=== PATIENT | female | born 1945 | race Two or more races ===

== ENCOUNTER 2024-08-10 12:33 | Inpatient (IN) | payer MEDICARE, MEDICAID ==
[~2024-08-10] VITALS: Ht 170.2 cm; Wt 154.6 kg
--- NOTE | 2024-08-10 13:11 | ED.PDOC ---
History of Present Illness HPI Comments 79 year old female FEDERICO presents to the ED with chief complaint of elevated blood pressure. Patient reports she is coming from [facility] care facility for an elevated blood pressure of 169/105 and an elevated heart rate of 130. Patient relays that she is bed ridden and does not walk in the facility. Patient denies any dizziness, chest pain, weakness, SOB, N/V, or headache. Chief Complaint: General Weakness Time Seen by MD: 13:09 Reviewed Notes: Nurses Notes, Manager Core Notes, Medications, Allergies Allergies: Coded Allergies: Codeine (Verified Allergy, Unknown, 08/10/24) Information Source: Patient, Emergency Med Personnel Mode of Arrival: EMS Severity: Moderate Timing: Hours Duration: Since onset Past Medical History PAST MEDICAL HISTORY: CHF, HTN Surgical History: Unknown INFANT NANNY History: Denies all INFANT NANNY Hx, Unknown Family History Family History: Unknown Social History Smoker: Non-Smoker Alcohol: Denies ETOH Use Drugs: Denies Drug Use Lives In: Correction Constitutional: denies: chills, diaphoresis, fatigue, fever, malaise, sweats, weakness, others EENTM: denies: blurred vision, double vision, ear bleeding, ear discharge, ear drainage, ear pain, ear ringing, eye pain, eye redness, hearing loss, mouth pain, mouth swelling, nasal discharge, nose bleeding, nose congestion, nose pain, photophobia, tearing, throat pain, throat swelling, voice changes, others Respiratory: denies: cough, hemoptysis, orthopnea, SOB at rest, shortness of breath, SOB with excertion, stridor, wheezing, others Cardiovascular: denies: chest pain, dizzy spells, diaphoresis, Dyspnea on exertion, edema, irregular heart beat, left arm pain, lightheadedness, palpitations, PND, syncope, others Gastrointestinal: denies: abdomen distended, abdominal pain, blood streaked bowels, constipated, diarrhea, dysphagia, difficulty swallowing, hematemesis, melena, nausea, poor appetite, poor fluid intake, rectal bleeding, rectal pain, vomiting, others Genitourinary: denies: abnormal vagina bleeding, burning, dyspareunia, dysuria, flank pain, frequency, hematuria, incontinence, pain, , vagina discharge, urgency, others Neurological: denies: dizziness, fainting, headache, left sided numbness, left sided weakness, numbness, paresthesia, pre-existing deficit, right sided numbness, right sided weakness, seizure, speech problems, tingling, tremors, weakness, others Musculoskeletal: denies: back pain, gout, joint pain, joint swelling, muscle pain, muscle stiffness, neck pain, others Integumetry: denies: bruises, change in color, change in hair/nails, dryness, laceration, lesions, lumps, rash, wounds, others Allergic/Immunocompromised: denies: Difficulty Healing, Frequent Infections, Hives, Itching, others Hematologic/Lymphatic: denies: anemia, blood clots, easy bleeding, easy bruising, swollen glands, others Endocrine: denies: excessive hunger, excessive sweating, excessive thirst, excessive urination, flushing, intolerance to cold, intolerance to heat, unexplained weight gain, unexplained weight loss, others Psychiatric: denies: anxiety, bipolar disorder, depression, hopeless, panic disorder, schizophrenia, sleepless, suicidal, others All Other Systems: Reviewed and Negative Physical Exam General Appearance: Moderate Distress, Obese HEENT: Normal ENT Inspection, PERRL/EOMI Neck: Full Range of Motion, Non-Tender, Normal, Normal Inspection Respiratory: Chest Non-Tender, Lungs Clear, No Accessory Muscle Use, No Respiratory Distress, Normal Breath Sounds Cardiovascular: No Edema, No JVD, No Murmur, No Gallop, Normal Peripheral Pulses, Regular Rate/Rhythm Breast Exam: Deferred Gastrointestinal: No Organomegaly, Non Tender, No Pulsatile Mass, Normal Bowel Sounds, Soft Genitalia: Deferred Pelvic: Deferred Rectal: Deferred Extremities: No calf tenderness, Normal capillary refill, Non-tender, Pedal edema Musculoskeletal : Apperance: Normal Neurologic: Alert, No Motor Deficits, Normal Affect, Normal Mood, No Sensory Deficits Cerebellar Function: NOT DONE Reflexes: NOT DONE Skin: Dry, Normal Color, Warm Peripheral Pulses: 3+ Radial (R), 3+ Radial (L) Lymphatic: No Adenopathy Was a procedure done? Was a procedure done?: No Differential Dx Considerations may include: High blood pressure Electrolyte imbalance X-Ray, Labs, Meds, VS Vital Signs Date Time Temp Pulse Resp B/P (MAP) Pulse Ox O2 Delivery O2 Flow Rate FiO2 08/10/24 16:46 101.5 08/10/24 16:06 101.5 08/10/24 15:06 102.6 08/10/24 15:06 209/116 08/10/24 14:34 102.6 127 30 209/116 (147) 97 102.6 08/10/24 14:34 132 08/10/24 13:49 124 08/10/24 12:35 98.5 130 20 169/105 (126) 96 Lab Test 08/10/24 15:33 08/10/24 13:30 Range/Units White Blood Count 26.9 H 4.4-10.8 10^3/uL Red Blood Count 4.09 4.0-5.20 10^6/uL Hemoglobin 10.6 L 12.2-16.2 g/dL Hematocrit 32.8 L 36.0-46.0 % Mean Corpuscular Volume 80.3 80.0-100.0 fL Mean Corpuscular Hemoglobin 25.9 L 28.0-32.0 pg Mean Corpuscular Hemoglobin Concent 32.2 32.0-36.0 g/dL Red Cell Distribution Width 17.2 H 11.8-14.3 % Platelet Count 296 140-450 10^3/uL Mean Platelet Volume 8.3 6.9-10.8 fL Neutrophils (%) (Auto) 37.0-80.0 % Lymphocytes (%) (Auto) 10.0-50.0 % Monocytes (%) (Auto) 0.0-12.0 % Basophils (%) (Auto) 0.0-2.0 % Neutrophils # (Auto) 1.6-8.6 10 ^3/uL Lymphocytes # (Auto) 0.4-5.4 10 ^3/uL Monocytes # (Auto) 0-1.3 10 ^3/uL Differential Total Cells Counted 100.0 100 Neutrophils % (Manual) 84 H 37.0-80.0 Band Neutrophils % (Manual) 7 Lymphocytes % (Manual) 1 L 10.0-50.0 Monocytes % (Manual) 8 0-12 Eosinophils % (Manual) 0 0-7 Basophils % (Manual) 0 0.0-2.0 Metamyelocytes % (manual) 0 Myelocytes % (Manual) 0 Promyelocytes % (Manual) 0 Blast Cells % (Manual) 0 Reactive Lymphocytes 0 Platelet Estimate Adequate Sodium Level 135 L 136-145 mmol/L Potassium Level 4.3 3.5-5.1 mmol/L Chloride Level 105 98-107 mmol/L Carbon Dioxide Level 24 20-31 mmol/L Anion Gap 6 5-15 Blood Urea Nitrogen 13 9-23 mg/dL Creatinine 1.11 H 0.550-1.02 mg/dL Glomerular Filtration Rate Calc 51 >90 mL/min BUN/Creatinine Ratio 11.7 10.0-20.0 Serum Glucose 128 H 74-106 mg/dL Calcium Level 9.6 8.7-10.4 mg/dL Troponin I High Sensitivity 7 </=34 ng/L Current Medications Medications (Trade) Dose Ordered Sig/Ivett Route Start Time Stop Time Status Last Admin Amlodipine Besylate (Norvasc Tablet) 10 mg ONCE ONCE PO 08/10/24 14:45 08/10/24 14:46 DC 08/10/24 15:06 Acetaminophen (Tylenol Solution Oral) 650 mg ONCE ONCE PO 08/10/24 14:45 08/10/24 14:46 DC 08/10/24 15:06 Ceftriaxone Sodium 50 ml @ 100 mls/hr ONCE ONCE IV 08/10/24 14:45 08/10/24 15:14 DC 08/10/24 15:43 Ibuprofen (Motrin Tablet) 800 mg ONCE ONCE PO 08/10/24 16:45 08/10/24 16:46 08/10/24 16:46 Azithromycin 250 ml @ 125 mls/hr ONCE ONCE IV 08/10/24 16:45 08/10/24 18:44 08/10/24 16:46 Patient alert. Morbidly obese. She does not ambulate. Vitals stable. Answering all questions. Blood pressure elevated. Was given Norvasc. Denies chest pain. Denies shortness of breath. She does have a history of CHF. Was given Lasix. EKG reviewed does not show any acute changes. Saturation pristine on room air. Chest x-ray reviewed does show pneumonia. Reviewed her previous visit. Explained to the patient. Time of 1ST Reevaluation: 14:09 Reevaluation 1ST: Unchanged Patient Education/Counseling: Diagnosis, Treatment Family Education/Counseling: No Family Present Departure 1 Departure Time of Disposition: 13:51 Impression: Primary Impression: Hypertensive emergency Additional Impressions: Sepsis due to urinary tract infection Pneumonia Qualified Codes: J18.9 - Pneumonia, unspecified organism Disposition: ADMITTED INPATIENT Admit to: Med Surg Condition: Guarded Critical Care Note Critical Care Time?: Yes (45 min-critical care time only) Stability Stability form required: No Heart Score Heart Score: Heart Score Response (Comments) Value History Slightly Suspicious 0 EKG Normal 0 Age >65 2 Risk Factors >3 or Hx ASHD 2 Troponin Normal limit 0 Total 4 I personally scribed for OPAL CURTIS MD ([email or web address]) on 08/10/24 at 13:11. Electronically submitted by Wesley Clark ([email or web address]). OPAL CURTIS MD Aug 10, 2024 13:11
[2024-08-10 14:00] LABS: Chloride 105 mmol/L (98-107); Potassium 4.3 mmol/L (3.5-5.1); Sodium 135 mmol/L (136-145)
[2024-08-10 14:01] LABS: Anion Gap 6 (5-15); Calcium 9.6 mg/dL (8.7-10.4); Carbon Dioxide 24 mmol/L (20-31)
[2024-08-10 14:06] LABS: BUN/Creatinine Ratio 11.7 (10.0-20.0); Blood Urea Nitrogen 13 mg/dL (9-23); Glucose 128 mg/dL (74-106)
[2024-08-10 14:22] VITALS: PULSE 133; RESP 27; O2SAT 95
--- NOTE | 2024-08-10 14:59 | DVH ---
CLINICAL INFORMATION: 79 years old, Female; shortness of breath. TECHNIQUE: Single AP portable chest radiograph was obtained. COMPARISON: None FINDINGS: Lungs: Atelectasis in the lung bases. Bilateral perihilar interstitial opacities. No dense focal co nsolidation. Cardiac: Heart size is within normal limits. Pulmonary vasculature: Unremarkable. Mediastinum/rosa: Moderate atherosclerotic calcification of the aortic arch. Bones: No acute osseous abnormality identified. Other: No other significant findings. IMPRESSION: Bilateral perihilar interstitial opacities are nonspecific, may be infectious or inflammatory in natu re or possibly due to chronic interstitial lung disease. Correlate with clinical findings. No focal c onsolidation visualized.
[2024-08-10] MEDS: amLODIPine BESYLATE 5 MG TAB PO ONE (15:06)
[2024-08-10] MEDS: ACETAMINOPHEN 650 mg PER 20.3 mL UD PO ONE (15:06)
[2024-08-10] MEDS: cefTRIAXone 1GM/50ML D5W 50 ML IV ONE (15:43)
[2024-08-10 15:44] LABS: Hematocrit 32.8 % (36.0-46.0); Hemoglobin 10.6 g/dL (12.2-16.2); Mean Corpuscular Hemoglobin 25.9 pg (28.0-32.0); Mean Corpuscular Hgb Conc. 32.2 g/dL (32.0-36.0); Mean Corpuscular Volume 80.3 fL (80.0-100.0); Platelet Count (auto) 296 10^3/uL (140-450); Red Blood Cells 4.09 10^6/uL (4.0-5.20); Red Cell Distribution Width 17.2 % (11.8-14.3); White Blood Cell 26.9 10^3/uL (4.4-10.8)
[2024-08-10 15:47] LABS: Basophils % (manual) 0 (0.0-2.0); Blast Cells 0; Eosinophils % (manual) 0 (0-7); Metamyelocytes % 0; Myelocytes % 0; Promyelocytes % 0; Reactive Lymphocytes 0
[2024-08-10 16:28] LABS: Band Neutrophils % (manual) 7; Lymphocytes % (manual) 1 (10.0-50.0); Monocytes % (manual) 8 (0-12); Platelet Estimate Adequate
[2024-08-10] MEDS: AZITHROMYCIN 500MG/ 250ML 250 ML IV ONE (16:46)
[2024-08-10] MEDS: IBUPROFEN 800 MG TAB PO ONE (16:46)
[2024-08-10 17:21] LABS: Urine Bacteria None Seen /hpf (None Seen)
[2024-08-10 18:12] LABS: Urine Blood 1+ /uL (Negative); Urine Clarity Turbid (Clear); Urine Color Light-Yellow (Yellow); Urine Protein, UAD TRACE (Negative); Urine Specific Gravity 1.017 (1.001-1.035); Urine Urobilinogen Normal (Negative); Urine WBC 15 /hpf (0 - 5); Urine pH 7.5 (5.0-9.0)
[2024-08-10] MEDS ORDERED: VANCOMYCIN PER PHARMACY 0 MG IV SCH (19:45)
[2024-08-10 19:50] VITALS: O2SAT 98
--- NOTE | 2024-08-10 20:07 | DVHHP2 ---
Admitting Diagnosis: hypertension History of Present Illness 79 year old female FEDERICO presents to the ED with chief complaint of elevated blood pressure. Patient reports she is coming from [facility] care facility for an elevated blood pressure of 169/105 and an elevated heart rate of 130. Patient relays that she is bed ridden and does not walk in the facility. Patient denies any dizziness, chest pain, weakness, SOB, N/V, or headache. PAST MEDICAL HISTORY: CHF, HTN Surgical History: Unknown APPRENTICE CARPENTER History: Denies all APPRENTICE CARPENTER Hx, Unknown Family History: Unknown Social History Smoker: Non-Smoker Alcohol: Denies ETOH Use Drugs: Denies Drug Use Lives In: Senior Care Allergies: Coded Allergies: Codeine (Verified Allergy, Unknown, 08/10/24) Vital Signs Vital Signs Date Time Temp Pulse Resp B/P (MAP) Pulse Ox O2 Delivery O2 Flow Rate FiO2 08/10/24 19:30 99.2 100 21 105/53 (70) 98 99.2 08/10/24 14:22 Nasal Cannula* 2 28 Physical Exam Generally 79 years old, morbidly obese, lying in bed. NAD. HEENT: AT/NC Heart: RRR Lung: decrease breath sounds due to body habitus Abd: soft, non-tender, non-distended msk: pedal edema, no cyanosis Neuro: AOx3, no focal deficit Results Labs Test 08/10/24 17:14 08/10/24 17:00 08/10/24 15:33 08/10/24 13:30 Range/Units Lactic Acid Level 1.2 0.4-2.0 mmol/L Urine Color Light-yellow Yellow Urine Clarity Turbid H Clear Urine pH 7.5 5.0-9.0 Urine Specific Stitzer 1.017 1.001-1.035 Urine Protein Trace H Negative Urine Ketones Negative Negative Urine Blood 1+ H Negative /uL Urine Nitrite 2+ H Negative Urine Bilirubin Negative Negative Urine Urobilinogen Normal Negative mg/dL Urine Leukocyte Esterase Trace Negative /uL Urine RBC 22 0 - 4 /hpf Urine WBC 15 0 - 5 /hpf Urine Squamous Epithelial Cells Few <5 /hpf Urine Bacteria None seen None Seen /hpf Urine Glucose Normal Normal mg/dL White Blood Count 26.9 H 4.4-10.8 10^3/uL Red Blood Count 4.09 4.0-5.20 10^6/uL Hemoglobin 10.6 L 12.2-16.2 g/dL Hematocrit 32.8 L 36.0-46.0 % Mean Corpuscular Volume 80.3 80.0-100.0 fL Mean Corpuscular Hemoglobin 25.9 L 28.0-32.0 pg Mean Corpuscular Hemoglobin Concent 32.2 32.0-36.0 g/dL Red Cell Distribution Width 17.2 H 11.8-14.3 % Platelet Count 296 140-450 10^3/uL Mean Platelet Volume 8.3 6.9-10.8 fL Neutrophils (%) (Auto) 37.0-80.0 % Lymphocytes (%) (Auto) 10.0-50.0 % Monocytes (%) (Auto) 0.0-12.0 % Basophils (%) (Auto) 0.0-2.0 % Neutrophils # (Auto) 1.6-8.6 10 ^3/uL Lymphocytes # (Auto) 0.4-5.4 10 ^3/uL Monocytes # (Auto) 0-1.3 10 ^3/uL Differential Total Cells Counted 100.0 100 Neutrophils % (Manual) 84 H 37.0-80.0 Band Neutrophils % (Manual) 7 Lymphocytes % (Manual) 1 L 10.0-50.0 Monocytes % (Manual) 8 0-12 Eosinophils % (Manual) 0 0-7 Basophils % (Manual) 0 0.0-2.0 Metamyelocytes % (manual) 0 Myelocytes % (Manual) 0 Promyelocytes % (Manual) 0 Blast Cells % (Manual) 0 Reactive Lymphocytes 0 Platelet Estimate Adequate Sodium Level 135 L 136-145 mmol/L Potassium Level 4.3 3.5-5.1 mmol/L Chloride Level 105 98-107 mmol/L Carbon Dioxide Level 24 20-31 mmol/L Anion Gap 6 5-15 Blood Urea Nitrogen 13 9-23 mg/dL Creatinine 1.11 H 0.550-1.02 mg/dL Glomerular Filtration Rate Calc 51 >90 mL/min BUN/Creatinine Ratio 11.7 10.0-20.0 Serum Glucose 128 H 74-106 mg/dL Calcium Level 9.6 8.7-10.4 mg/dL Troponin I High Sensitivity 7 </=34 ng/L Primary Diagnosis Sepsis due to UTI and pneumonia Acute urinary retention Plan Start vanco and Zosyn for broad-spectrum antibiotics Check blood culture, sputum culture urine culture IV fluids Trend WBC Insert Isaacs for urinary retention. Possible due to UTI Trial of void prior to discharge Full code Lovenox for DVT prophylaxis PPI for GI prophylaxis Regular diet Plan discussed with: Patient Date of Service: Aug 10, 2024 Billing Provider: KORIN BECERRIL MD Common Visit Codes: [id number] INP/OBS CARE (HIGH) KORIN BECERRIL MD Aug 10, 2024 20:07
--- NOTE | 2024-08-10 20:28 | DVH ---
EXAM: US KIDNEY INDICATION: 79 years old, Female; acute urinary rentention. TECHNIQUE: Multiple real-time sonographic images of the kidneys and bladder were obtained. COMPARISON: None Findings: Right kidney measures 13.4 cm with normal contours, echotexture, and cortical thickness. Mild hydrone phrosis. No evidence of calculi, cystic or solid lesions. Left kidney measures 12.8 cm with normal contours, echotexture, and cortical thickness. Mild hydronep hrosis. No evidence of calculi, cystic or solid lesions. Urinary bladder is decompressed via zamora catheter. Impression: 1. Mild bilateral hydronephrosis. 2. Urinary bladder is decompressed via zamora catheter.
[2024-08-10] MEDS: SODIUM CHLORIDE 0.9% 1,000 ML IV ONE (20:35)
[2024-08-10] MEDS: PIPERACILLIN-TAZOB 3.375GM 100 ML IV ONE (20:35)
[2024-08-10] MEDS: SODIUM CHLOR 0.9% PF (SALINE LOCK) 10ML VIAL/SYR IV SCH (21:31)
[2024-08-10] MEDS: VANCOMYCIN 1GM/200ML PREMIX IV SCH (21:31)
[2024-08-11] MEDS: hydrALAZINE HCL 20 MG/ML VL IV ONE ×2 (00:28→20:46)
[2024-08-11] MEDS: PIPERACILLIN-TAZOB 3.375GM 100 ML IV SCH (02:51)
[2024-08-11 04:20] LABS: Basophils # (auto) 0.1 10 ^3/uL (0-0.2); Eosinophils # (auto) 0 10 ^3/uL (0-0.8); Lymphocytes # (auto) 0.3 10 ^3/uL (0.4-5.4)
[2024-08-11 04:21] LABS: Basophils % (auto) 0.6 % (0.0-2.0); Eosinophils % (auto) 0.1 % (0.0-7.0); Hematocrit 31.3 % (36.0-46.0); Lymphocytes % (auto) 1.2 % (10.0-50.0); Mean Corpuscular Hemoglobin 25.8 pg (28.0-32.0); Mean Corpuscular Hgb Conc. 32.1 g/dL (32.0-36.0); Mean Corpuscular Volume 80.5 fL (80.0-100.0); Monocytes # (auto) 1.6 10 ^3/uL (0-1.3); Monocytes % (auto) 6.5 % (0.0-12.0); Neutrophils # (auto) 22.6 10 ^3/uL (1.6-8.6); Neutrophils % (auto) 91.6 % (37.0-80.0); Platelet Count (auto) 276 10^3/uL (140-450); Red Blood Cells 3.88 10^6/uL (4.0-5.20); Red Cell Distribution Width 17.1 % (11.8-14.3); White Blood Cell 24.6 10^3/uL (4.4-10.8)
[2024-08-11 04:43] LABS: Alanine Aminotransferase 11 U/L (7-40); Albumin 3.4 g/dL (3.2-4.8); Alkaline Phosphatase 86 U/L (46-116); Anion Gap 8 (5-15); Aspartate Aminotransferase 17 U/L (13-40); BUN/Creatinine Ratio 14.6 (10.0-20.0); Bilirubin, Total 0.5 mg/dL (0.2-1.0); Blood Urea Nitrogen 19 mg/dL (9-23); Calcium 9.3 mg/dL (8.7-10.4); Carbon Dioxide 25 mmol/L (20-31); Chloride 103 mmol/L (98-107); Glucose 134 mg/dL (74-106); Potassium 3.8 mmol/L (3.5-5.1); Sodium 136 mmol/L (136-145); Total Protein 7.5 g/dL (5.7-8.2)
[2024-08-11 08:00] VITALS: PULSE 113; RESP 22; O2SAT 98
[2024-08-11] MEDS: ENOXAPARIN SOD 40 MG/0.4 ML SYRINGE SC SCH (10:09)
--- NOTE | 2024-08-11 11:09 | ECG ---
[facility] Test Date: 2024-08-10 Test Time: 12:43:06 Pat Name: KAIN POLLOCK Department: ER Room: 0296 Gender: F Resort Keeper: RED : 1945 Requested By: OPAL CURTIS Order Number: [id number] Reading MD: Estuardo Read Measurements Intervals [place] Rate: 124 P: 51 ND: 135 QRS: -64 QRSD: 162 T: 76 QT: 344 QTc: 494 Interpretive Statements Sinus tachycardia Ventricular premature complex RBBB and LAFB Left ventricular hypertrophy Inferior infarct, acute Lateral leads are also involved Electronically Signed On 08-13-2024 13:06:13 PDT by Estuardo Read Please click the below link to view image of tracing.
[2024-08-11] MEDS: VANCOMYCIN 1GM/200ML PREMIX 200 ML IV SCH (12:09)
[2024-08-11] MEDS: SODIUM CHLORIDE 0.9% 1,000 ML IV SCH (16:00)
--- NOTE | 2024-08-11 16:28 | DVHPN2 ---
Progress Note Date Seen: Aug 11, 2024 Medical Necessity Reason Pt with a Central, PICC or Fol: Yes The following are medically ne: Zamora Catheter Reason for zamora catheter: Strict I&O Subjective Patient reports: No new complaints Review of Systems: HEENT:Normal, CVS:Normal, RESPIRATORY:Normal, GI:Normal, :Normal, MSK:Normal, NEURO:Normal Objective vital signs Vital Sign Date Time Temp Pulse Resp B/P (MAP) Pulse Ox O2 Delivery O2 Flow Rate FiO2 08/11/24 16:12 118 25 181/83 (115) 97 08/11/24 08:00 Nasal Cannula* 2 28 08/11/24 08:00 99.5 99.5 Total Intake and Output 08/10/24 08/10/24 08/11/24 15:00 23:00 07:00 Intake Total 475 ml 1300 ml Balance 475 ml 1300 ml medications Current Medications Medications Dose Ordered Sig/Ivett Route Start Time Stop Time Status Last Admin Dose Admin Vancomycin HCl 0 ml @ 0 mls/hr UD IV 08/10/24 19:45 Sodium Chloride 10 ml Q8HR IV 08/10/24 22:00 08/11/24 14:54 10 ML Docusate Sodium 100 mg BIDPRN PRN PO 08/10/24 19:45 Acetaminophen 650 mg Q6HP PRN PO 08/10/24 19:45 Acetaminophen/ Hydrocodone Bitart 1 tab Q4HP PRN PO 08/10/24 19:45 Hydromorphone HCl 0.5 mg Q4HP PRN IV 08/10/24 19:45 Ondansetron HCl 4 mg Q4HP PRN IV 08/10/24 19:45 Enoxaparin Sodium 40 mg DAILY SC 08/11/24 10:00 08/11/24 10:09 40 MG Vancomycin HCl 200 ml @ 200 mls/hr Q15H IV 08/11/24 12:00 08/11/24 12:09 200 MLS/HR Meropenem 50 ml @ 17 mls/hr Q8HR IV 08/11/24 22:00 Sodium Chloride 1,000 ml @ 75 mls/hr [id number] IV 08/11/24 16:00 Examination: GENERAL:Normal, HEENT:Normal, NECK:Normal, LUNGS:Normal, LUNGS:Abnormal (on oxygen), CVS:Normal, ABDOMEN:Normal, MSK:Normal, SKIN:Normal, NEURO:Normal, :Normal laboratory and microbiology Laboratory Tests 08/11/24 03:55 Test 08/11/24 03:55 Range/Units Serum Glucose 134 H 74-106 mg/dL Microbiology Date/Time Source Procedure Growth Status 08/10/24 17:00 Voided Urine Urine Culture - Preliminary Resulted Problem List/Assessment/Plan Problem List/Assessment/Plan #1 sepsis with uti: iv meropenem, vanc, ivf #2 htn: adjust meds #3 acute renal failure ?vasomotor nephropathy: ivf #4 morbid obesity #5 h/o cva #6 bedbound status #7 chronic resp failure #8 chronic systolic/diastolic heart failure: echo #9 anemia advance care planning- full code- time spent 21 mins Plan discussed with: Patient My Orders My Orders Orders - SRINIVASA ANDERSEN MD Procedure Category Date Status Time Meropenem 1gm Ivpb PHA 08/11/24 In Process (Merrem 1gm/ Ns) 16:00 Meropenem 1gm Ivpb PHA 08/11/24 In Process (Merrem 1gm/ Ns) 22:00 Sodium Chloride 0.9% PHA 08/11/24 In Process 16:00 Blood Culture ALESSANDRO 08/11/24 Verified 16:17 Basic Metabolic Panel LAB 08/12/24 Verified 06:00 Complete Blood Count LAB 08/12/24 Verified 06:00 Amlodipine Tablet PHA 08/11/24 Verified (Norvasc Tablet) 16:30 Amlodipine Tablet PHA 08/12/24 Verified (Norvasc Tablet) 10:00 Labetalol Hcl PHA 08/11/24 Verified (Labetalol Hcl) 16:30 Chest Portable XY 08/12/24 Verified 06:00 Echo 2d Mode Cardiac US 08/11/24 Verified DOP 16:17 Date of Service: Aug 11, 2024 Billing Provider: SRINIVASA ANDERSEN MD Common Visit Codes: [id number] INP/OBS CARE(HIGH) Secondary Visit Codes: [id number] CARE PLAN 30 MINUTES SRINIVASA ANDERSEN MD Aug 11, 2024 16:28
[2024-08-11] MEDS: amLODIPine BESYLATE 5 MG TAB PO ONE (17:06)
[2024-08-11] MEDS: HYDROmorphone HCL 2 MG/ML VL/or syr IV PRN (17:42)
[2024-08-11] MEDS: LABETALOL HCL 20 MG/4 ML VL IV PRN (18:45)
[2024-08-11] MEDS: MEROPENEM 1GM IVPB 50 ML IV ONE (18:45)
[2024-08-11 19:50] VITALS: O2SAT 97
[2024-08-11] MEDS: MEROPENEM 1GM IVPB 50 ML IV SCH (22:00)
[2024-08-12] VITALS (8 sets, daily range): BP systolic 113–149; BP diastolic 56–89; PULSE 86–125; RESP 16–21; TEMP 97.4–99.7; O2SAT 95–100
[2024-08-12] MEDS ORDERED: FOLI-119 PO (03:51)
[2024-08-12] MEDS ORDERED: ASPI81CH59 PO (03:51)
[2024-08-12] MEDS ORDERED: MIDO5TAB22 PO (03:51)
[2024-08-12] MEDS ORDERED: MULTTAB75 PO (03:51)
[2024-08-12] MEDS ORDERED: FERR325T20 PO (03:51)
[2024-08-12] MEDS ORDERED: TRAM50TA2 PO (03:51)
[2024-08-12] MEDS ORDERED: IPRA0.00 IN (03:51)
[2024-08-12] MEDS ORDERED: ASCO500T11 PO (03:51)
[2024-08-12] MEDS ORDERED: DOCU-94 PO (03:51)
[2024-08-12] MEDS ORDERED: ACET325T82 PO (03:51)
[2024-08-12] MEDS ORDERED: CLON0.1T PO (03:51)
[2024-08-12] MEDS ORDERED: LISI20TA56 PO (03:51)
[2024-08-12] MEDS ORDERED: APIX2.5T PO (03:51)
[2024-08-12] MEDS ORDERED: DIPH50CA31 PO (03:51)
[2024-08-12] MEDS ORDERED: PANT40TA2 PO (03:51)
[2024-08-12 04:40] LABS: Basophils # (auto) 0.1 10 ^3/uL (0-0.2); Basophils % (auto) 0.9 % (0.0-2.0); Eosinophils # (auto) 0.3 10 ^3/uL (0-0.8); Eosinophils % (auto) 3.4 % (0.0-7.0); Hematocrit 30.1 % (36.0-46.0); Hemoglobin 10.2 g/dL (12.2-16.2); Lymphocytes # (auto) 2.3 10 ^3/uL (0.4-5.4); Lymphocytes % (auto) 29.6 % (10.0-50.0); Mean Corpuscular Hemoglobin 30.3 pg (28.0-32.0); Mean Corpuscular Hgb Conc. 33.9 g/dL (32.0-36.0); Mean Corpuscular Volume 89.4 fL (80.0-100.0); Monocytes # (auto) 0.9 10 ^3/uL (0-1.3); Monocytes % (auto) 11.3 % (0.0-12.0); Neutrophils # (auto) 4.2 10 ^3/uL (1.6-8.6); Neutrophils % (auto) 54.8 % (37.0-80.0); Platelet Count (auto) 230 10^3/uL (140-450); Red Blood Cells 3.36 10^6/uL (4.0-5.20); Red Cell Distribution Width 14.7 % (11.8-14.3); White Blood Cell 7.6 10^3/uL (4.4-10.8)
[2024-08-12 04:51] LABS: Chloride 112 mmol/L (98-107); Potassium 3.9 mmol/L (3.5-5.1); Sodium 143 mmol/L (136-145)
[2024-08-12 04:52] LABS: Anion Gap 5 (5-15); Calcium 9.6 mg/dL (8.7-10.4); Carbon Dioxide 26 mmol/L (20-31)
[2024-08-12 04:57] LABS: BUN/Creatinine Ratio 19.3 (10.0-20.0); Blood Urea Nitrogen 16 mg/dL (9-23); Glucose 114 mg/dL (74-106)
--- NOTE | 2024-08-12 09:11 | DVH ---
CLINICAL INFORMATION: 79 years old, Female; copd. TECHNIQUE: Single AP portable chest radiograph was obtained. COMPARISON: XY CHEST PORTABLE on DOS: 08/10/24 FINDINGS: Similar-appearing bilateral interstitial opacities. Atelectasis in the lung bases. No dense focal con solidation visualized. No other significant interval change. IMPRESSION: 1. Bilateral interstitial opacities are unchanged. 2. No focal consolidation visualized.
[2024-08-12] MEDS: amLODIPine BESYLATE 5 MG TAB PO SCH (11:28)
--- NOTE | 2024-08-12 13:14 | DVHSR ---
APPROVED REPORT EXAM: Two-dimensional and M-mode echocardiogram with Doppler and color Doppler. Blood Pressure: 113/56 mmHg INDICATION CAD RISK FACTORS Height: 67, Weight: 350 DIMENSIONS LVDd4.7 (3.8-5.7cm)LA (2D)4.3 (1.9-4.0cm)Aortic Root3.1 (2.0-3.7cm) LVDs3.4 (2.5-4.0cm)LA (MM) (1.9-4.0cm)Aortic Cusp Exc1.7 (1.5-2.0cm) EF (%) 54.0 (55-70%)Rt. Atrium4.6 (1.9-4.0cm)Asc. Aorta cm IVSd1.3 (0.7-1.1cm)RV (D) (1.8-2.4cm) PWd1.3 (0.7-1.1cm) Mitral Valve MitralMitral Stenosis E wave0.77m/sMV Mean GR.6mmHg A wave1.27m/sMV Peak GR.126mmHg E/A ratio0.62D MVAcm2 DECEL [id number] 1/2 Timems Aortic Valve Aortic ValveAortic Stenosis V11.35m/Rufina Mean GR.13mmHg V22.65m/Rufina Peak GR.28mmHg LVOT Diameter2.3 (1.8-2.4cm)Doppler AVA2.12cm2 Pulmonic Valve V21.80m/s Tricuspid Valve TR Velocity3.19m/s [id number] Conclusion Normal left ventricular size and dimension. Normal left ventricular systolic function with estimated ejection fraction 55%. There is a grade1 diastolic dysfunction. Normal right ventricular size and dimension. Normal right ventricular systolic function. Moderately severely elevated right ventricular systolic pressure at 54 mm of mercury Normal biatrial size and dimension. Normal aortic valve structure and function. Normal mitral valve structure and function. Normal tricuspid valve function. The pulmonary valve is grossly normal. No pericardial effusion.
[2024-08-12] MEDS: ONDANSETRON HCL 4 MG/2 ML VIAL IV PRN (14:51)
--- NOTE | 2024-08-12 15:26 | DVHPN2 ---
Progress Note Date Seen: Aug 12, 2024 Medical Necessity Reason Pt with a Central, PICC or Fol: Yes The following are medically ne: Zamora Catheter Reason for zamora catheter: Strict I&O Subjective Patient reports: No new complaints Review of Systems: HEENT:Normal, CVS:Normal, RESPIRATORY:Normal, GI:Normal, :Normal, MSK:Normal, NEURO:Normal Objective vital signs Vital Sign Date Time Temp Pulse Resp B/P (MAP) Pulse Ox O2 Delivery O2 Flow Rate FiO2 08/12/24 14:52 96 18 147/81 08/12/24 13:00 99.7 96 99.7 08/12/24 08:00 Room Air* 0 21 Total Intake and Output 08/11/24 08/11/24 08/12/24 15:00 23:00 07:00 Intake Total 300 ml 525 ml 625 ml Output Total 2500 ml Balance 300 ml 525 ml -1875 ml medications Current Medications Medications Dose Ordered Sig/Ivett Route Start Time Stop Time Status Last Admin Dose Admin Vancomycin HCl 0 ml @ 0 mls/hr UD IV 08/10/24 19:45 Sodium Chloride 10 ml Q8HR IV 08/10/24 22:00 08/12/24 14:54 10 ML Docusate Sodium 100 mg BIDPRN PRN PO 08/10/24 19:45 Acetaminophen 650 mg Q6HP PRN PO 08/10/24 19:45 Acetaminophen/ Hydrocodone Bitart 1 tab Q4HP PRN PO 08/10/24 19:45 Hydromorphone HCl 0.5 mg Q4HP PRN IV 08/10/24 19:45 08/12/24 14:52 0.5 MG Ondansetron HCl 4 mg Q4HP PRN IV 08/10/24 19:45 08/12/24 14:51 4 MG Enoxaparin Sodium 40 mg DAILY SC 08/11/24 10:00 08/12/24 11:29 40 MG Vancomycin HCl 200 ml @ 200 mls/hr Q15H IV 08/11/24 12:00 08/12/24 03:36 200 MLS/HR Meropenem 50 ml @ 17 mls/hr Q8HR IV 08/11/24 22:00 08/12/24 15:01 17 MLS/HR Sodium Chloride 1,000 ml @ 75 mls/hr [id number] IV 08/11/24 16:00 08/12/24 06:02 75 MLS/HR Amlodipine Besylate 10 mg DAILY PO 08/12/24 10:00 08/12/24 11:28 10 MG Labetalol HCl 10 mg Q4HP PRN IV 08/11/24 16:30 08/11/24 22:53 10 MG Examination: GENERAL:Normal, HEENT:Normal, NECK:Normal, LUNGS:Normal, CVS:Normal, ABDOMEN:Normal, MSK:Normal, SKIN:Normal, NEURO:Normal, :Normal laboratory and microbiology Laboratory Tests 08/12/24 04:08 Test 08/12/24 04:08 Range/Units Serum Glucose 114 H 74-106 mg/dL Microbiology Date/Time Source Procedure Growth Status 08/10/24 17:14 Blood Blood Culture - Preliminary NO GROWTH AFTER 24 HOURS OF INCUBATION. Resulted 08/10/24 17:00 Voided Urine Urine Culture - Final Escherichia coli Complete Problem List/Assessment/Plan Problem List/Assessment/Plan #1 sepsis with uti due to e coli: iv levaquin ivf #2 htn: adjust meds #3 acute renal failure ?vasomotor nephropathy: ivf #4 morbid obesity #5 h/o cva #6 bedbound status #7 chronic resp failure #8 chronic systolic/diastolic heart failure: echo #9 anemia advance care planning- full code- time spent 21 mins Plan discussed with: Patient My Orders My Orders Orders - SRINIVASA ANDERSEN MD Procedure Category Date Status Time Meropenem 1gm Ivpb PHA 08/11/24 In Process (Merrem 1gm/ Ns) 22:00 Sodium Chloride 0.9% PHA 08/11/24 In Process 16:00 Amlodipine Tablet PHA 08/12/24 In Process (Norvasc Tablet) 10:00 Labetalol Hcl PHA 08/11/24 In Process (Labetalol Hcl) 16:30 Chest Portable XY 08/12/24 Resulted 06:00 Hepatitis B Surface LAB 08/12/24 Logged Antigen 03:10 Hepatitis C Antibody LAB 08/12/24 Logged 03:10 * Batch Still Operator CONS 08/12/24 Transmitted Consult Echo 2d Mode Cardiac US 08/12/24 Resulted DOP 16:17 Date of Service: Aug 12, 2024 Billing Provider: SRINIVASA ANDERSEN MD Common Visit Codes: [id number] INP/OBS CARE(HIGH) SRINIVASA ANDERSEN MD Aug 12, 2024 15:25
[2024-08-12] MEDS: PANTOPRAZOLE 40 MG/10 ML VIAL INJ IV ONE (18:24)
[2024-08-12] MEDS: levoFLOXacin 500MG 100 ML IV SCH (18:24)
[2024-08-13] VITALS (8 sets, daily range): BP systolic 105–176; BP diastolic 62–103; PULSE 99–107; RESP 17–22; TEMP 98–98.9; O2SAT 99–100
[2024-08-13 07:06] LABS: Basophils # (auto) 0 10 ^3/uL (0-0.2); Basophils % (auto) 0.3 % (0.0-2.0); Hematocrit 31.3 % (36.0-46.0)
[2024-08-13 07:08] LABS: Eosinophils # (auto) 0.2 10 ^3/uL (0-0.8); Eosinophils % (auto) 1.5 % (0.0-7.0); Hemoglobin 10.4 g/dL (12.2-16.2); Lymphocytes # (auto) 0.8 10 ^3/uL (0.4-5.4); Lymphocytes % (auto) 6.9 % (10.0-50.0); Mean Corpuscular Hemoglobin 26.8 pg (28.0-32.0); Mean Corpuscular Hgb Conc. 33.2 g/dL (32.0-36.0); Mean Corpuscular Volume 80.7 fL (80.0-100.0); Monocytes # (auto) 1.4 10 ^3/uL (0-1.3); Monocytes % (auto) 11.6 % (0.0-12.0); Neutrophils # (auto) 9.5 10 ^3/uL (1.6-8.6); Neutrophils % (auto) 79.7 % (37.0-80.0); Nucleated Red Blood Cells % 0.1 %; Platelet Count (auto) 253 10^3/uL (140-450); Red Blood Cells 3.88 10^6/uL (4.0-5.20); White Blood Cell 11.9 10^3/uL (4.4-10.8)
[2024-08-13 08:10] LABS: Alanine Aminotransferase 16 U/L (7-40); Albumin 3.2 g/dL (3.2-4.8); Alkaline Phosphatase 96 U/L (46-116); Anion Gap 7 (5-15); Aspartate Aminotransferase 11 U/L (13-40); BUN/Creatinine Ratio 24.6 (10.0-20.0); Calcium 8.9 mg/dL (8.7-10.4); Carbon Dioxide 27 mmol/L (20-31); Chloride 104 mmol/L (98-107); Glucose 88 mg/dL (74-106); Potassium 4.6 mmol/L (3.5-5.1); Sodium 138 mmol/L (136-145)
[2024-08-13 08:11] LABS: Bilirubin, Total 0.3 mg/dL (0.2-1.0); Total Protein 6.9 g/dL (5.7-8.2)
[2024-08-13 08:17] LABS: Blood Urea Nitrogen 30 mg/dL (9-23)
[2024-08-13] MEDS: PANTOPRAZOLE 40 MG/10 ML VIAL INJ IV SCH (10:17)
[2024-08-13 12:24] LABS: Hepatitis B Surface Antigen Negative (Negative)
[2024-08-13 12:47] LABS: Hepatitis C Antibody Negative (Negative)
--- NOTE | 2024-08-13 16:02 | DVHPN2 ---
Progress Note Date Seen: Aug 13, 2024 Medical Necessity Reason Pt with a Central, PICC or Fol: Yes The following are medically ne: Zamora Catheter Reason for zamora catheter: Strict I&O Subjective Patient reports: No new complaints Review of Systems: HEENT:Normal, CVS:Normal, RESPIRATORY:Normal, GI:Normal, :Normal, MSK:Normal, NEURO:Normal Objective vital signs Vital Sign Date Time Temp Pulse Resp B/P (MAP) Pulse Ox O2 Delivery O2 Flow Rate FiO2 08/13/24 14:26 101 148/93 (111) 08/13/24 13:00 98.0 19 99 98.0 08/12/24 20:00 Nasal Cannula* 3 32 Total Intake and Output 08/12/24 08/12/24 08/13/24 14:59 22:59 06:59 Intake Total 50 ml 1450 ml 1008 ml Output Total 700 ml 750 ml Balance 50 ml 750 ml 258 ml medications Current Medications Medications Dose Ordered Sig/Ivett Route Start Time Stop Time Status Last Admin Dose Admin Sodium Chloride 10 ml Q8HR IV 08/10/24 22:00 08/13/24 14:00 10 ML Docusate Sodium 100 mg BIDPRN PRN PO 08/10/24 19:45 Acetaminophen 650 mg Q6HP PRN PO 08/10/24 19:45 Acetaminophen/ Hydrocodone Bitart 1 tab Q4HP PRN PO 08/10/24 19:45 Hydromorphone HCl 0.5 mg Q4HP PRN IV 08/10/24 19:45 08/12/24 14:52 0.5 MG Ondansetron HCl 4 mg Q4HP PRN IV 08/10/24 19:45 08/12/24 14:51 4 MG Enoxaparin Sodium 40 mg DAILY SC 08/11/24 10:00 08/13/24 10:17 40 MG Sodium Chloride 1,000 ml @ 75 mls/hr [id number] IV 08/11/24 16:00 08/12/24 06:02 75 MLS/HR Amlodipine Besylate 10 mg DAILY PO 08/12/24 10:00 08/13/24 10:16 10 MG Labetalol HCl 10 mg Q4HP PRN IV 08/11/24 16:30 08/11/24 22:53 10 MG Levofloxacin/ Dextrose 100 ml @ 100 mls/hr DAILY IV 08/12/24 15:52 08/13/24 10:17 100 MLS/HR Pantoprazole Sodium 40 mg DAILY IV 08/13/24 10:00 08/13/24 10:17 40 MG Examination: GENERAL:Normal, HEENT:Normal, NECK:Normal, LUNGS:Normal, CVS:Normal, ABDOMEN:Normal, MSK:Normal, SKIN:Normal, NEURO:Normal, :Normal laboratory and microbiology Laboratory Tests 08/13/24 06:05 Test 08/13/24 06:05 Range/Units Serum Glucose 88 74-106 mg/dL Microbiology Date/Time Source Procedure Growth Status 08/10/24 17:14 Blood Blood Culture - Preliminary NO GROWTH AFTER 48 HOURS OF INCUBATION. Resulted 08/10/24 17:00 Voided Urine Urine Culture - Final Escherichia coli Complete Problem List/Assessment/Plan Problem List/Assessment/Plan #1 sepsis with uti due to e coli: iv levaquin, flagyl #2 htn: adjust meds #3 acute renal failure ?vasomotor nephropathy: ivf #4 morbid obesity #5 h/o cva #6 bedbound status #7 chronic resp failure #8 chronic systolic/diastolic heart failure: echo #9 anemia #10 abd pain ? gallstones: ct abd, gallbladder usg advance care planning- full code- time spent 21 mins Plan discussed with: Patient My Orders My Orders Orders - SRINIVASA ANDERSEN MD Procedure Category Date Status Time Ct Ab Pel Wo Con-No CT 08/13/24 Verified Oral Or Iv 15:54 Gallbladder US 08/13/24 Verified 15:54 Metronidazole Ivpb PHA 08/13/24 Verified Flagyl 22:00 Complete Blood Count LAB 08/14/24 Verified 06:00 Comprehensive LAB 08/14/24 Verified Metabolic Panel 06:00 PTPTT LAB 08/14/24 Verified 04:00 Date of Service: Aug 13, 2024 Billing Provider: SRINIVASA ANDERSEN MD Common Visit Codes: [id number] INP/OBS CARE(HIGH) SRINIVASA ANDERSEN MD Aug 13, 2024 16:02
--- NOTE | 2024-08-13 17:00 | DVH ---
Exam: CT CT AB PEL WO CON-NO ORAL OR IV History: abd pain Comparison Study: None Technique: Multidetector spiral CT of the abdomen and pelvis was performed from lung bases to pubic symphysis. Imaging was performed without IV contrast. Axial, coronal and sagittal multiplanar reform ats were obtained from the axial data set by the technologist. Radiation dose : Abdomen/Pelvis: CTDIvol 28.02 mGy, DLP 1407.35 mGy*cm. Findings: Evaluation of solid organs is limited due to lack of intravenous contrast use. Lung Bases: No acute or significant lung base finding. Normal heart size. No pleural or pericardial effusion. Liver: The liver is normal in size. No focal lesions. Gallbladder and biliary Tree: Unremarkable Spleen: Unremarkable Pancreas: The pancreas is grossly normal in appearance. Adrenal Glands: Unremarkable Kidneys: There is osuk-na-lvjbeelh left hydronephrosis there is a distal left ureteral calculus measu ring up to 7mm. Right kidney appears unremarkable. Bladder: Bladder is decompressed with a Isaacs catheter and cannot be adequately assessed. Bowel: The stomach is grossly normal in appearance. Small bowel and colon are normal in caliber and d istribution. The appendix is not visualized; however, no secondary findings of acute appendicitis id entified. Diverticulosis is noted. Ascites: Absent Lymphadenopathy: Shoddy retroperitoneal lymphadenopathy is noted. Abdominal wall and Mesentery: Unremarkable. Vasculature: The visualized abdominal aorta is normal in size and caliber. Evaluation of abdominal a nd pelvic vessels is limited due to lack of intravenous contrast. Pelvic Organs: The uterus is surgically absent. Musculoskeletal: No aggressive focal bony lesions, acute fractures or dislocation. IMPRESSION: 1. Distal left reteral calculus measuring up to 7mm associated with yjrj-in-pbdopmib left hydronephro sis and hydroureter urology evaluation is recommended. Other nonspecific findings as above. Radiation optimization: All CT scans at this facility use at least one of these dose optimization bernardino hniques: Automated exposure control mA and/or kV adjustment per patient size (includes targeted exams where dose is matched to clinical indication) or iterative reconstruction. HS:Y
--- NOTE | 2024-08-13 18:09 | DVH ---
INDICATION: gallstones TECHNIQUE: Multiple real-time sonographic images were obtained of the right upper quadrant. COMPARISON: None FINDINGS: The liver demonstrates homogeneous echotexture without focal mass lesions. The liver measu res 19.1 cm. There is no intrahepatic or extrahepatic ductal dilatation. The common duct measures 0.6 cm. Cholelithiasis. The gallbladder wall measures 0.3 cm and is within normal limits. The right kidney measures 12.6 cm. The right kidney is normal in contour, size, and shape. The echo genicity is normal. There is no hydronephrosis. The pancreas is not well visualized due to overlying bowel gas. IMPRESSION: Cholelithiasis. Hepatomegaly.
[2024-08-13] MEDS: metroNIDAZOLE 500MG/100ML 100 ML IV SCH (21:00)
[2024-08-14] VITALS (7 sets, daily range): BP systolic 133–183; BP diastolic 73–93; PULSE 49–107; RESP 16–24; TEMP 97.7–99.2; O2SAT 94–100
[2024-08-14 07:17] LABS: Basophils # (auto) 0 10 ^3/uL (0-0.2); Basophils % (auto) 0.3 % (0.0-2.0); Eosinophils # (auto) 0 10 ^3/uL (0-0.8); Eosinophils % (auto) 0.3 % (0.0-7.0); Hematocrit 32.4 % (36.0-46.0); Hemoglobin 10.5 g/dL (12.2-16.2); Lymphocytes # (auto) 0.7 10 ^3/uL (0.4-5.4); Lymphocytes % (auto) 5.7 % (10.0-50.0); Mean Corpuscular Hemoglobin 25.6 pg (28.0-32.0); Mean Corpuscular Hgb Conc. 32.3 g/dL (32.0-36.0); Mean Corpuscular Volume 79.3 fL (80.0-100.0); Monocytes # (auto) 1.3 10 ^3/uL (0-1.3); Monocytes % (auto) 11.3 % (0.0-12.0); Neutrophils # (auto) 9.4 10 ^3/uL (1.6-8.6); Neutrophils % (auto) 82.4 % (37.0-80.0); Nucleated Red Blood Cells % 0.1 %; Platelet Count (auto) 285 10^3/uL (140-450); Red Blood Cells 4.09 10^6/uL (4.0-5.20); Red Cell Distribution Width 17.1 % (11.8-14.3); White Blood Cell 11.4 10^3/uL (4.4-10.8)
[2024-08-14 07:30] LABS: INR 1.16 (0.9-1.15); Partial Thromboplastin Time 29.4 SEC (24.5-34.5); Prothrombin Time 12.2 sec (9.3-11.8)
[2024-08-14 07:35] LABS: Alanine Aminotransferase 14 U/L (7-40); Albumin 3.6 g/dL (3.2-4.8); Alkaline Phosphatase 100 U/L (46-116); Anion Gap 7 (5-15); Aspartate Aminotransferase 12 U/L (13-40); Bilirubin, Total 0.4 mg/dL (0.2-1.0); Blood Urea Nitrogen 17 mg/dL (9-23); Calcium 9.5 mg/dL (8.7-10.4); Carbon Dioxide 27 mmol/L (20-31); Chloride 101 mmol/L (98-107); Glucose 109 mg/dL (74-106); Potassium 4.1 mmol/L (3.5-5.1); Sodium 135 mmol/L (136-145); Total Protein 7.8 g/dL (5.7-8.2)
--- NOTE | 2024-08-14 10:08 | DVHPN2 ---
Subjective Patient is feeling slightly better Reviewed: Care Plan, H&P, Labs, Medications, Previous Orders, Radiology, Other Changes from previous H/P or p: No Changes Objective Vitals Vital Signs Date Time Temp Pulse Resp B/P (MAP) Pulse Ox O2 Delivery O2 Flow Rate FiO2 08/14/24 09:00 97.9 49 22 150/88 (108) 100 97.9 08/13/24 20:00 Nasal Cannula* 3 32 Intake/Output Intake and Output 08/14/24 07:00 Intake Total 1529 ml Output Total 3175 ml Balance -1646 ml Intake Oral 754 ml IV Total 775 ml Output Urine Total 3175 ml General Appearance: Alert, Oriented X3, Cooperative, No acute distress HEENT: Atraumatic Lungs: Other (Decreased air entry bilateral) Cardiovascular: Regular rate, Normal S1, Normal S2 Abdomen: Normal bowel sounds, Soft, No tenderness Neuro: Normal speech, Cranial nerves 3-12 NL Psych/Mental Status: Mental status NL, Mood NL Medications Current Medications Medications Dose Ordered Sig/Ivett Route Start Time Stop Time Status Last Admin Dose Admin Sodium Chloride 10 ml Q8HR IV 08/10/24 22:00 08/14/24 06:33 10 ML Docusate Sodium 100 mg BIDPRN PRN PO 08/10/24 19:45 Acetaminophen 650 mg Q6HP PRN PO 08/10/24 19:45 Acetaminophen/ Hydrocodone Bitart 1 tab Q4HP PRN PO 08/10/24 19:45 Hydromorphone HCl 0.5 mg Q4HP PRN IV 08/10/24 19:45 08/12/24 14:52 0.5 MG Ondansetron HCl 4 mg Q4HP PRN IV 08/10/24 19:45 08/14/24 03:42 4 MG Enoxaparin Sodium 40 mg DAILY SC 08/11/24 10:00 08/13/24 10:17 40 MG Sodium Chloride 1,000 ml @ 75 mls/hr [id number] IV 08/11/24 16:00 08/13/24 20:55 75 MLS/HR Amlodipine Besylate 10 mg DAILY PO 08/12/24 10:00 08/13/24 10:16 10 MG Labetalol HCl 10 mg Q4HP PRN IV 08/11/24 16:30 10/25/24 06:48 10 MG Levofloxacin/ Dextrose 100 ml @ 100 mls/hr DAILY IV 08/12/24 15:52 08/13/24 10:17 100 MLS/HR Pantoprazole Sodium 40 mg DAILY IV 08/13/24 10:00 08/13/24 10:17 40 MG Metronidazole 100 ml @ 100 mls/hr Q8HR IV 08/13/24 22:00 08/14/24 06:33 100 MLS/HR Laboratory Results Laboratory Tests 08/14/24 06:54 Chemistry Test 08/14/24 06:54 Albumin 3.6 g/dL (3.2-4.8) Calcium Level 9.5 mg/dL (8.7-10.4) Total Protein 7.8 g/dL (5.7-8.2) Coagulation Test 08/14/24 06:54 Prothrombin Time 12.2 sec (9.3-11.8) H Prothrombin Time INR 1.16 (0.9-1.15) H Activated Partial Thromboplast Time 29.4 SEC (24.5-34.5) LFT Test 08/14/24 06:54 Alanine Aminotransferase (ALT) 14 U/L (7-40) Alkaline Phosphatase 100 U/L (46-116) Aspartate Amino Transferase (AST) 12 U/L (13-40) L Total Bilirubin 0.4 mg/dL (0.2-1.0) Urinalysis Test 08/10/24 17:00 Urine Color Light-yellow (Yellow) Urine Clarity Turbid (Clear) H Urine pH 7.5 (5.0-9.0) Urine Specific [place] 1.017 (1.001-1.035) Urine Protein Trace (Negative) H Urine Ketones Negative (Negative) Urine Blood 1+ /uL (Negative) H Urine Nitrite 2+ (Negative) H Urine Bilirubin Negative (Negative) Urine Urobilinogen Normal mg/dL (Negative) Urine Leukocyte Esterase Trace /uL (Negative) Urine RBC 22 /hpf (0 - 4) Urine WBC 15 /hpf (0 - 5) Urine Squamous Epithelial Cells Few /hpf (<5) Urine Bacteria None seen /hpf (None Seen) Urine Glucose Normal mg/dL (Normal) Microbiology Microbiology Date/Time Source Procedure Growth Status 08/10/24 17:14 Blood Blood Culture - Preliminary NO GROWTH AFTER 72 HOURS OF INCUBATION. Resulted 08/10/24 17:00 Voided Urine Urine Culture - Final Escherichia coli Complete Labs and/or images reviewed: Labs reviewed by me, Image(s) reviewed by me Assessment/Plan Assessment/Plan Covering Dr. Moreira: #Sepsis due to E. coli UTI; reviewed urine and blood culture; continue IV levofloxacin and IV metronidazole; continue monitoring #Leukocytosis due to sepsis; resolving; continue monitoring #CHANDU; due to vasomotor nephropathy in the setting of sepsis; resolving; continue IV fluids; avoid nephrotoxic agents; continue monitoring #Hypertensive heart disease; continue and adjust antihypertensive medications as needed; continue monitoring #Chronic systolic/diastolic heart failure; not in exacerbation; reviewed echocardiogram; continue monitoring #Chronic hypoxic respiratory failure; baseline oxygen therapy at home of 3 liter/minute via nasal cannula; continue oxygen therapy as needed; continue monitoring #Abdominal pain; most likely related to ureteral stone; reviewed abdomen/pelvis CT and ultrasound of gallbladder; ordered urology consult as the CT showing left hydroureteronephrosis; continue monitoring #Cholelithiasis; no acute cholecystitis; continue monitoring #Ureteral stone causing left hydroureteronephrosis; consulted Urology; continue monitoring #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 This medical document was created using an electronic medical record system with computerized dictation system. Although this document has been carefully reviewed, there might still be some phonetic and typographical errors. These areas are purely typographical due to imperfections of the software programs, and do not reflect any compromise in the patient's medical care. Plan discussed with: Patient, Other (Nurse) Date of Service: Aug 14, 2024 Billing Provider: ANA MARIA JENKINS MD Common Visit Codes: [id number] INP/OBS CARE(HIGH) Secondary Visit Codes: [id number] CARE PLAN 30 MINUTES (20 minutes) ANA MARIA JENKINS MD Aug 14, 2024 10:08
[2024-08-14] MEDS: DOCUSATE SOD 100 MG CAP PO PRN (11:37)
[2024-08-14] MEDS: TAMSULOSIN HYDROCHLORIDE 0.4 MG CAP PO SCH (17:08)
[2024-08-14] MEDS: MANNITOL FTV 25% 12.5 GM/50 ML 50 ML IV ONE (17:08)
[2024-08-14] MEDS: SODIUM CHLORIDE 0.9% 1,000 ML IV SCH (21:17)
--- NOTE | 2024-08-14 22:54 | DVHINCON2 ---
Date of service: Aug 14, 2024 Referring Physician Hospitalist Reason for Consultation 7 mm left distal ureteral stone with mild hydronephrosis UTI History of Present Illness 79 year old female FEDERICO presents to the ED with chief complaint of elevated blood pressure. Patient reports she is coming from [facility] care facility for an elevated blood pressure of 169/105 and an elevated heart rate of 130. Patient relays that she is bed ridden and does not walk in the facility. Patient denies any dizziness, chest pain, weakness, SOB, N/V, or headache. Family History: Patient reports no known family medical history. Allergies: Coded Allergies: Codeine (Verified Allergy, Unknown, 08/10/24) Home Meds Reported Medications Ipratropium-Albuterol (Ipratropium [place]/Albut) 1 Neil Neil, 1 NEIL IN Q2HP PRN for SHORTNESS OF BREATH, ML 08/12/24 Docusate Sodium (Colace) 100 Mg Cap, 100 MG PO [id number] PRN for FOR CONSTIPATION, CAP 08/12/24 Clonidine Hydrochloride (Clonidine Hcl) 0.1 Mg Tab, 0.1 MG PO Q4HPRN PRN for SBP>160, TAB 08/12/24 Acetaminophen (Apap) 325 Mg Tab, 2 TAB PO Q6HPRN PRN for TEMP GREATER THAN 100, TAB 08/12/24 Midodrine HCl (Midodrine Hydrochloride) 5 Mg Tab, 5 MG PO Q6HPRN PRN for HYPOTENSION, TAB 08/12/24 Tramadol Hcl (Tramadol Hcl) 50 Mg Tab, 50 MG PO Q6HPRN PRN for SEVERE PAIN, TAB 08/12/24 Lisinopril (Lisinopril) 20 Mg Tab, 10 MG PO DAILY, TAB 08/12/24 Pantoprazole Sodium Sesquihydr (Protonix) 40 Mg Tab, 40 MG PO DAILY, #30 TAB 08/12/24 Multiple Vitamins W/ Minerals (Strovite One) Tab, 1 TAB PO DAILY, TAB 08/12/24 Folic Acid (Folic Acid) 1 Mg Tab, 1 MG PO DAILY, TAB 08/12/24 Ferrous Sulfate (Ferosul) 325 Mg Tab, 325 MG PO DAILY, TAB 08/12/24 Apixaban Base (ELIQUIS) 2.5 Mg Tab, 2.5 MG PO BID, TAB 08/12/24 Diphenhydramine Hcl (BANOPHEN) 50 Mg Cap, 50 MG PO DAILY, CAP 08/12/24 Aspirin (Aspirin Low Dose) 81 Mg Chw, 81 MG PO DAILY, TAB.CHEW 08/12/24 Ascorbic Acid (VITAMIN C TABLET) 500 Mg Tb, 500 MG PO DAILY, TAB 08/12/24 Current Medications Current Medications Medications (Trade) Dose Ordered Sig/Ivett Route PRN Reason Start Time Stop Time Status Last Admin Tamsulosin HCl (Flomax) 0.4 mg QPM PO 08/14/24 18:00 08/14/24 17:08 Sodium Chloride 1,000 ml @ 150 mls/hr Q6H40M IV 08/14/24 19:00 08/14/24 21:17 Vital Signs Vital Signs Date Time Temp Pulse Resp B/P (MAP) Pulse Ox O2 Delivery O2 Flow Rate FiO2 08/14/24 21:00 99.0 107 18 133/73 (93) 99 99.0 08/14/24 08:00 Nasal Cannula* 3 32 Labs/Diagnostic Data Labs Test 08/14/24 06:54 08/12/24 17:30 08/12/24 04:08 08/10/24 17:14 Range/Units White Blood Count 11.4 H 4.4-10.8 10^3/uL Red Blood Count 4.09 4.0-5.20 10^6/uL Hemoglobin 10.5 L 12.2-16.2 g/dL Hematocrit 32.4 L 36.0-46.0 % Mean Corpuscular Volume 79.3 L 80.0-100.0 fL Mean Corpuscular Hemoglobin 25.6 L 28.0-32.0 pg Mean Corpuscular Hemoglobin Concent 32.3 32.0-36.0 g/dL Red Cell Distribution Width 17.1 H 11.8-14.3 % Platelet Count 285 140-450 10^3/uL Mean Platelet Volume 8.5 6.9-10.8 fL Neutrophils (%) (Auto) 82.4 H 37.0-80.0 % Lymphocytes (%) (Auto) 5.7 L 10.0-50.0 % Monocytes (%) (Auto) 11.3 0.0-12.0 % Eosinophils (%) (Auto) 0.3 0.0-7.0 % Basophils (%) (Auto) 0.3 0.0-2.0 % Neutrophils # (Auto) 9.4 H 1.6-8.6 10 ^3/uL Lymphocytes # (Auto) 0.7 0.4-5.4 10 ^3/uL Monocytes # (Auto) 1.3 0-1.3 10 ^3/uL Eosinophils # (Auto) 0 0-0.8 10 ^3/uL Basophils # (Auto) 0 0-0.2 10 ^3/uL Nucleated Red Blood Cells 0.1 % Prothrombin Time 12.2 H 9.3-11.8 sec Prothrombin Time INR 1.16 H 0.9-1.15 Activated Partial Thromboplast Time 29.4 24.5-34.5 SEC Sodium Level 135 L 136-145 mmol/L Potassium Level 4.1 3.5-5.1 mmol/L Chloride Level 101 98-107 mmol/L Carbon Dioxide Level 27 20-31 mmol/L Anion Gap 7 5-15 Blood Urea Nitrogen 17 # 9-23 mg/dL Creatinine 1.00 0.550-1.02 mg/dL Glomerular Filtration Rate Calc 58 >90 mL/min BUN/Creatinine Ratio 17.0 10.0-20.0 Serum Glucose 109 H 74-106 mg/dL Calcium Level 9.5 8.7-10.4 mg/dL Total Bilirubin 0.4 0.2-1.0 mg/dL Aspartate Amino Transferase (AST) 12 L 13-40 U/L Alanine Aminotransferase (ALT) 14 7-40 U/L Alkaline Phosphatase 100 46-116 U/L Total Protein 7.8 5.7-8.2 g/dL Albumin 3.6 3.2-4.8 g/dL Hepatitis B Surface Antigen Negative Negative Hepatitis C Antibody Negative Negative Hemoglobin A1c 5.8 H <5.7 % A1C Thyroid Stimulating Hormone (TSH) 1.91 0.55-4.78 uIU/mL Lactic Acid Level 1.2 0.4-2.0 mmol/L Test 08/10/24 17:00 08/10/24 15:33 08/10/24 13:30 Range/Units Urine Color Light-yellow Yellow Urine Clarity Turbid H Clear Urine pH 7.5 5.0-9.0 Urine Specific [place] 1.017 1.001-1.035 Urine Protein Trace H Negative Urine Ketones Negative Negative Urine Blood 1+ H Negative /uL Urine Nitrite 2+ H Negative Urine Bilirubin Negative Negative Urine Urobilinogen Normal Negative mg/dL Urine Leukocyte Esterase Trace Negative /uL Urine RBC 22 0 - 4 /hpf Urine WBC 15 0 - 5 /hpf Urine Squamous Epithelial Cells Few <5 /hpf Urine Bacteria None seen None Seen /hpf Urine Glucose Normal Normal mg/dL Differential Total Cells Counted 100.0 100 Neutrophils % (Manual) 84 H 37.0-80.0 Band Neutrophils % (Manual) 7 Lymphocytes % (Manual) 1 L 10.0-50.0 Monocytes % (Manual) 8 0-12 Eosinophils % (Manual) 0 0-7 Basophils % (Manual) 0 0.0-2.0 Metamyelocytes % (manual) 0 Myelocytes % (Manual) 0 Promyelocytes % (Manual) 0 Blast Cells % (Manual) 0 Reactive Lymphocytes 0 Platelet Estimate Adequate Troponin I High Sensitivity 7 </=34 ng/L Microbiology Date/Time Source Procedure Growth Status 08/10/24 17:14 Blood Blood Culture - Preliminary NO GROWTH AFTER 72 HOURS OF INCUBATION. Resulted 08/10/24 17:00 Voided Urine Urine Culture - Final Escherichia coli Complete PATIENT: KAIN POLLOCK ACCT: [id number] UNIT: [id number] : 1945 LOC: [facility] ROOM / BED: [facility] A AGE / SEX: 79 / F ADM STATUS: ADM IN SERVICE 155 ORDERING PHYSICIAN: SRINIVASA ANDERSEN MD PROCEDURE(s): ABPL - CT AB PEL WO CON-NO ORAL OR IV REASON: abd pain ORDER NUMBER(s): [id number], ACCESSION NUMBER(s): [id number] Exam: CT CT AB PEL WO CON-NO ORAL OR IV History: abd pain Comparison Study: None Technique: Multidetector spiral CT of the abdomen and pelvis was performed from lung bases to pubic symphysis. Imaging was performed without IV contrast. Axial, coronal and sagittal multiplanar reformats were obtained from the axial data set by the technologist. Radiation dose : Abdomen/Pelvis: CTDIvol 28.02 mGy, DLP 1407.35 mGy*cm. Findings: Evaluation of solid organs is limited due to lack of intravenous contrast use. Lung Bases: No acute or significant lung base finding. Normal heart size. No pleural or pericardial effusion. Liver: The liver is normal in size. No focal lesions. Gallbladder and biliary Tree: Unremarkable Spleen: Unremarkable Pancreas: The pancreas is grossly normal in appearance. Adrenal Glands: Unremarkable Kidneys: There is [id number]-waotbrdb left hydronephrosis there is a distal left ureteral calculus measuring up to 7mm. Right kidney appears unremarkable. Bladder: Bladder is decompressed with a Isaacs catheter and cannot be adequately assessed. Bowel: The stomach is grossly normal in appearance. Small bowel and colon are normal in caliber and distribution. The appendix is not visualized; however, no secondary findings of acute appendicitis identified. Diverticulosis is noted. Ascites: Absent Lymphadenopathy: Shoddy retroperitoneal lymphadenopathy is noted. Abdominal wall and Mesentery: Unremarkable. Vasculature: The visualized abdominal aorta is normal in size and caliber. Evaluation of abdominal and pelvic vessels is limited due to lack of intravenous contrast. Pelvic Organs: The uterus is surgically absent. Musculoskeletal: No aggressive focal bony lesions, acute fractures or di slocation. IMPRESSION: 1. Distal left reteral calculus measuring up to 7mm associated with [id number]-ek-dopjwzth left hydronephrosis and hydroureter urology evaluation is recommended. Other nonspecific findings as above. Radiation optimization: All CT scans at this facility use at least one of these dose optimization techniques: Automated exposure control mA and/or kV adjustment per patient size (includes targeted exams where dose is matched to clinical indication) or iterative reconstruction. HS:Y ATED BY: GUILHERME HILLIARD MD DICTATED DATE/TIME: 08/13/241657 SIGNED BY: GUILHERME HILLIARD MD SIGNED DATE/TIME: 08/13/241657 CC: Assessment Left distal ureteral stone Mild hydronephrosis Left flank pain Plan/Recommendation Expulsive measures If fail conservative management, will proceed with ESWL, possible stent placement Plan discussed with: LUZ Stahl MD Aug 14, 2024 22:54
[2024-08-15] VITALS (7 sets, daily range): BP systolic 137–162; BP diastolic 72–91; PULSE 89–107; RESP 16–20; TEMP 97.4–99.3; O2SAT 98–100
[2024-08-15 07:29] LABS: Basophils # (auto) 0 10 ^3/uL (0-0.2); Basophils % (auto) 0.3 % (0.0-2.0); Chloride 103 mmol/L (98-107); Eosinophils # (auto) 0.2 10 ^3/uL (0-0.8); Eosinophils % (auto) 1.6 % (0.0-7.0); Hematocrit 27.7 % (36.0-46.0); Hemoglobin 8.9 g/dL (12.2-16.2); Lymphocytes % (auto) 8.8 % (10.0-50.0); Mean Corpuscular Hemoglobin 25.4 pg (28.0-32.0); Mean Corpuscular Volume 79.4 fL (80.0-100.0); Monocytes # (auto) 1.6 10 ^3/uL (0-1.3); Monocytes % (auto) 14.7 % (0.0-12.0); Neutrophils # (auto) 8.2 10 ^3/uL (1.6-8.6); Neutrophils % (auto) 74.6 % (37.0-80.0); Nucleated Red Blood Cells % 0.1 %; Platelet Count (auto) 267 10^3/uL (140-450); Potassium 4.2 mmol/L (3.5-5.1); Red Blood Cells 3.49 10^6/uL (4.0-5.20); Red Cell Distribution Width 16.8 % (11.8-14.3); Sodium 135 mmol/L (136-145); White Blood Cell 11.1 10^3/uL (4.4-10.8)
[2024-08-15 07:30] LABS: Anion Gap 4 (5-15); Calcium 8.8 mg/dL (8.7-10.4); Carbon Dioxide 28 mmol/L (20-31)
[2024-08-15 07:35] LABS: Blood Urea Nitrogen 15 mg/dL (9-23); Glucose 102 mg/dL (74-106)
[2024-08-15] MEDS: HYDROcodone-ACET 5/325MG TAB PO PRN (10:41)
[2024-08-15] MEDS: ACETAMINOPHEN 325 MG TAB PO PRN (10:56)
--- NOTE | 2024-08-15 12:55 | DVHPN2 ---
Subjective Complaining of left flank pain along with abdominal pain Reviewed: Care Plan, H&P, Labs, Medications, Previous Orders, Radiology, Other (Consultation) Changes from previous H/P or p: Changes Objective Vitals Vital Signs Date Time Temp Pulse Resp B/P (MAP) Pulse Ox O2 Delivery O2 Flow Rate FiO2 08/15/24 11:34 98.4 102 19 148/72 (97) 98 98.4 08/14/24 20:00 Nasal Cannula* 3 32 Intake/Output Intake and Output 08/15/24 07:00 Intake Total 2300 ml Output Total 2725 ml Balance -425 ml Intake Oral 2000 ml IV Total 300 ml Output Urine Total 2725 ml General Appearance: Alert, Oriented X3, Cooperative, No acute distress HEENT: Atraumatic Lungs: Other (Decreased air entry bilateral) Cardiovascular: Regular rate, Normal S1, Normal S2 Abdomen: Normal bowel sounds, Soft, No tenderness Genitourinary: Other (Isaacs's ) Neuro: Normal speech, Cranial nerves 3-12 NL Psych/Mental Status: Mental status NL, Mood NL Medications Current Medications Medications Dose Ordered Sig/Ivett Route Start Time Stop Time Status Last Admin Dose Admin Sodium Chloride 10 ml Q8HR IV 08/10/24 22:00 08/15/24 06:50 10 ML Docusate Sodium 100 mg BIDPRN PRN PO 08/10/24 19:45 08/14/24 11:37 100 MG Acetaminophen 650 mg Q6HP PRN PO 08/10/24 19:45 08/15/24 10:56 650 MG Acetaminophen/ Hydrocodone Bitart 1 tab Q4HP PRN PO 08/10/24 19:45 Hydromorphone HCl 0.5 mg Q4HP PRN IV 08/10/24 19:45 08/12/24 14:52 0.5 MG Ondansetron HCl 4 mg Q4HP PRN IV 08/10/24 19:45 08/14/24 21:18 4 MG Enoxaparin Sodium 40 mg DAILY SC 08/11/24 10:00 08/15/24 10:23 40 MG Amlodipine Besylate 10 mg DAILY PO 08/12/24 10:00 08/15/24 10:23 10 MG Labetalol HCl 10 mg Q4HP PRN IV 08/11/24 16:30 08/14/24 06:48 10 MG Levofloxacin/ Dextrose 100 ml @ 100 mls/hr DAILY IV 08/12/24 15:52 08/15/24 10:24 100 MLS/HR Pantoprazole Sodium 40 mg DAILY IV 08/13/24 10:00 08/15/24 10:24 40 MG Metronidazole 100 ml @ 100 mls/hr Q8HR IV 08/13/24 22:00 08/15/24 06:50 100 MLS/HR Tamsulosin HCl 0.4 mg QPM PO 08/14/24 18:00 08/14/24 17:08 0.4 MG Sodium Chloride 1,000 ml @ 150 mls/hr Q6H40M IV 08/14/24 19:00 08/15/24 03:18 150 MLS/HR Laboratory Results Laboratory Tests 08/15/24 06:01 Chemistry Test 08/15/24 06:01 Calcium Level 8.8 mg/dL (8.7-10.4) Urinalysis Test 08/10/24 17:00 Urine Color Light-yellow (Yellow) Urine Clarity Turbid (Clear) H Urine pH 7.5 (5.0-9.0) Urine Specific [place] 1.017 (1.001-1.035) Urine Protein Trace (Negative) H Urine Ketones Negative (Negative) Urine Blood 1+ /uL (Negative) H Urine Nitrite 2+ (Negative) H Urine Bilirubin Negative (Negative) Urine Urobilinogen Normal mg/dL (Negative) Urine Leukocyte Esterase Trace /uL (Negative) Urine RBC 22 /hpf (0 - 4) Urine WBC 15 /hpf (0 - 5) Urine Squamous Epithelial Cells Few /hpf (<5) Urine Bacteria None seen /hpf (None Seen) Urine Glucose Normal mg/dL (Normal) Microbiology Microbiology Date/Time Source Procedure Growth Status 08/10/24 17:14 Blood Blood Culture - Preliminary NO GROWTH AFTER 72 HOURS OF INCUBATION. Resulted 08/10/24 17:00 Voided Urine Urine Culture - Final Escherichia coli Complete Labs and/or images reviewed: Labs reviewed by me, Image(s) reviewed by me Assessment/Plan Assessment/Plan Covering Dr. Moreira: #Sepsis due to E. coli UTI; reviewed urine and blood culture; continue IV levofloxacin and IV metronidazole; continue monitoring #Leukocytosis due to sepsis; resolving; continue monitoring #CHANDU; due to vasomotor nephropathy in the setting of sepsis; resolving; continue IV fluids; avoid nephrotoxic agents; continue monitoring #Hypertensive heart disease; continue and adjust antihypertensive medications as needed; continue monitoring #Chronic systolic/diastolic heart failure; not in exacerbation; reviewed echocardiogram; continue monitoring #Chronic hypoxic respiratory failure; baseline oxygen therapy at home of 3 liter/minute via nasal cannula; continue oxygen therapy as needed; continue monitoring #Abdominal pain; most likely related to ureteral stone; reviewed abdomen/pelvis CT and ultrasound of gallbladder; urology consult as the CT showing left hydroureteronephrosis: Expulsive measures, If fail conservative management, will proceed with ESWL, possible stent placement; continue monitoring #Cholelithiasis; no acute cholecystitis; continue monitoring #Ureteral stone causing left hydroureteronephrosis; as above; continue monitoring #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 Although this document has been carefully reviewed, there might still be some phonetic and typographical errors. These areas are purely typographical due to imperfections of the software programs, and do not reflect any compromise in the patient's medical care. Plan discussed with: Patient, Other (Nurse) My Orders Orders - ANA MARIA JENKINS MD Procedure Category Date Status Time * Urology Consult CONS 08/14/24 Transmitted 13:45 Complete Blood Count LAB 08/16/24 Verified 04:00 Basic Metabolic Panel LAB 08/16/24 Verified 04:00 Date of Service: Aug 15, 2024 Billing Provider: ANA MARIA JENKINS MD Common Visit Codes: [id number] INP/OBS CARE(HIGH) ANA MARIA JENKINS MD Aug 15, 2024 12:55
[2024-08-16] VITALS (7 sets, daily range): BP systolic 132–154; BP diastolic 58–88; PULSE 87–107; RESP 18–21; TEMP 97.4–98.6; O2SAT 97–100
[2024-08-16 06:24] LABS: Basophils # (auto) 0 10 ^3/uL (0-0.2); Basophils % (auto) 0.5 % (0.0-2.0); Eosinophils # (auto) 0.3 10 ^3/uL (0-0.8); Eosinophils % (auto) 3.4 % (0.0-7.0); Hematocrit 27.7 % (36.0-46.0); Hemoglobin 9.1 g/dL (12.2-16.2); Lymphocytes # (auto) 0.9 10 ^3/uL (0.4-5.4); Lymphocytes % (auto) 9.7 % (10.0-50.0); Mean Corpuscular Hemoglobin 26.3 pg (28.0-32.0); Mean Corpuscular Volume 79.7 fL (80.0-100.0); Monocytes % (auto) 10.7 % (0.0-12.0); Neutrophils # (auto) 7.4 10 ^3/uL (1.6-8.6); Neutrophils % (auto) 75.7 % (37.0-80.0); Platelet Count (auto) 268 10^3/uL (140-450); Red Blood Cells 3.47 10^6/uL (4.0-5.20); Red Cell Distribution Width 17.1 % (11.8-14.3); White Blood Cell 9.7 10^3/uL (4.4-10.8)
[2024-08-16 06:28] LABS: Anion Gap 5 (5-15); Calcium 8.6 mg/dL (8.7-10.4); Carbon Dioxide 27 mmol/L (20-31); Chloride 106 mmol/L (98-107); Potassium 4.1 mmol/L (3.5-5.1); Sodium 138 mmol/L (136-145)
[2024-08-16 06:34] LABS: BUN/Creatinine Ratio 14.5 (10.0-20.0); Blood Urea Nitrogen 12 mg/dL (9-23); Glucose 115 mg/dL (74-106)
--- NOTE | 2024-08-16 11:59 | DVHPN2 ---
Subjective Complaining of left flank pain along with abdominal pain Reviewed: Care Plan, H&P, Labs, Medications, Previous Orders, Radiology, Other (Consultation) Changes from previous H/P or p: No Changes Objective Vitals Vital Signs Date Time Temp Pulse Resp B/P (MAP) Pulse Ox O2 Delivery O2 Flow Rate FiO2 08/16/24 11:36 98.5 90 19 154/84 (107) 100 98.5 08/16/24 08:30 Nasal Cannula* 3 32 Intake/Output Intake and Output 08/16/24 07:00 Intake Total 3350 ml Output Total 3850 ml Balance -500 ml Intake Oral 1800 ml IV Total 1550 ml Output Urine Total 3850 ml General Appearance: Alert, Oriented X3, Cooperative, No acute distress HEENT: Atraumatic Lungs: Other (Decreased air entry bilateral) Cardiovascular: Regular rate, Normal S1, Normal S2 Abdomen: Normal bowel sounds, Soft, Other (Left CVA tenderness) Genitourinary: Other (Isaacs's ) Back: Flank Tenderness (Left) Neuro: Normal speech, Cranial nerves 3-12 NL Psych/Mental Status: Mental status NL, Mood NL Medications Current Medications Medications Dose Ordered Sig/Ivett Route Start Time Stop Time Status Last Admin Dose Admin Sodium Chloride 10 ml Q8HR IV 08/10/24 22:00 08/16/24 05:04 10 ML Docusate Sodium 100 mg BIDPRN PRN PO 08/10/24 19:45 08/14/24 11:37 100 MG Acetaminophen 650 mg Q6HP PRN PO 08/10/24 19:45 08/16/24 10:18 650 MG Acetaminophen/ Hydrocodone Bitart 1 tab Q4HP PRN PO 08/10/24 19:45 Hydromorphone HCl 0.5 mg Q4HP PRN IV 08/10/24 19:45 08/12/24 14:52 0.5 MG Ondansetron HCl 4 mg Q4HP PRN IV 08/10/24 19:45 08/14/24 21:18 4 MG Enoxaparin Sodium 40 mg DAILY SC 08/11/24 10:00 08/16/24 10:13 40 MG Amlodipine Besylate 10 mg DAILY PO 08/12/24 10:00 08/16/24 10:13 10 MG Labetalol HCl 10 mg Q4HP PRN IV 08/11/24 16:30 08/15/24 21:00 10 MG Levofloxacin/ Dextrose 100 ml @ 100 mls/hr DAILY IV 08/12/24 15:52 08/16/24 10:13 100 MLS/HR Pantoprazole Sodium 40 mg DAILY IV 08/13/24 10:00 08/16/24 10:13 40 MG Metronidazole 100 ml @ 100 mls/hr Q8HR IV 08/13/24 22:00 08/16/24 05:32 100 MLS/HR Tamsulosin HCl 0.4 mg QPM PO 08/14/24 18:00 08/15/24 18:18 0.4 MG Sodium Chloride 1,000 ml @ 150 mls/hr Q6H40M IV 08/14/24 19:00 08/16/24 04:19 150 MLS/HR Laboratory Results Laboratory Tests 08/16/24 05:17 Chemistry Test 08/16/24 05:17 Calcium Level 8.6 mg/dL (8.7-10.4) L Urinalysis Test 08/10/24 17:00 Urine Color Light-yellow (Yellow) Urine Clarity Turbid (Clear) H Urine pH 7.5 (5.0-9.0) Urine Specific [place] 1.017 (1.001-1.035) Urine Protein Trace (Negative) H Urine Ketones Negative (Negative) Urine Blood 1+ /uL (Negative) H Urine Nitrite 2+ (Negative) H Urine Bilirubin Negative (Negative) Urine Urobilinogen Normal mg/dL (Negative) Urine Leukocyte Esterase Trace /uL (Negative) Urine RBC 22 /hpf (0 - 4) Urine WBC 15 /hpf (0 - 5) Urine Squamous Epithelial Cells Few /hpf (<5) Urine Bacteria None seen /hpf (None Seen) Urine Glucose Normal mg/dL (Normal) Microbiology Microbiology Date/Time Source Procedure Growth Status 08/10/24 17:14 Blood Blood Culture - Final NO GROWTH AFTER 5 DAYS OF INCUBATION. Complete 08/10/24 17:00 Voided Urine Urine Culture - Final Escherichia coli Complete Labs and/or images reviewed: Labs reviewed by me, Image(s) reviewed by me Assessment/Plan Assessment/Plan Covering Dr. Moreira: #Left ureteral colic; urology onboard; plan: Left ureteroscopic laser lithotripsy and possible left ureteral stent placement; continue pain management as needed; continue monitoring #Sepsis due to E. coli UTI; reviewed urine and blood culture; continue IV levofloxacin and IV metronidazole; continue monitoring #Leukocytosis due to sepsis; resolving; continue monitoring #CHANDU; due to vasomotor nephropathy in the setting of sepsis; resolving; continue IV fluids; avoid nephrotoxic agents; continue monitoring #Hypertensive heart disease; continue and adjust antihypertensive medications as needed; continue monitoring #Chronic systolic/diastolic heart failure; not in exacerbation; reviewed echocardiogram; continue monitoring #Chronic hypoxic respiratory failure; baseline oxygen therapy at home of 3 liter/minute via nasal cannula; continue oxygen therapy as needed; continue monitoring #Abdominal pain; most likely related to ureteral stone; reviewed abdomen/pelvis CT and ultrasound of gallbladder; urology consulted; details as above; continue monitoring #Cholelithiasis; no acute cholecystitis; continue monitoring #Ureteral stone causing left hydroureteronephrosis; as above; continue monitoring #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 Although this document has been carefully reviewed, there might still be some phonetic and typographical errors. These areas are purely typographical due to imperfections of the software programs, and do not reflect any compromise in the patient's medical care. Plan discussed with: Patient, Other (Nurse) My Orders Orders - ANA MARIA JENKINS MD Procedure Category Date Status Time Complete Blood Count LAB 08/17/24 Verified 04:00 Basic Metabolic Panel LAB 08/17/24 Verified 04:00 Date of Service: Aug 16, 2024 Billing Provider: ANA MARIA JENKINS MD Common Visit Codes: [id number] INP/OBS CARE(HIGH) ANA MARIA JENKINS MD Aug 16, 2024 11:59
--- NOTE | 2024-08-16 20:28 | DVHPN2 ---
Progress Note - Dictate Date Seen: Aug 16, 2024 Medical Necessity Reason Pt with a Central, PICC or Fol: Yes The following are medically ne: Zamora Catheter Reason for zamora catheter: Strict I&O Medical Necessity Reason flank pain rates 8/10 Subjective Pain persistent vital signs Vital Sign Date Time Temp Pulse Resp B/P (MAP) Pulse Ox O2 Delivery O2 Flow Rate FiO2 08/16/24 17:18 97.4 87 19 139/82 (101) 99 97.4 08/16/24 08:30 Nasal Cannula* 3 32 Total Intake and Output 08/15/24 08/15/24 08/16/24 15:00 23:00 07:00 Intake Total 200 ml 2350 ml 900 ml Output Total 1700 ml 2150 ml Balance 200 ml 650 ml -1250 ml medications Current Medications Medications Dose Ordered Sig/Ivett Route Start Time Stop Time Status Last Admin Dose Admin Sodium Chloride 10 ml Q8HR IV 08/10/24 22:00 08/16/24 14:20 10 ML Docusate Sodium 100 mg BIDPRN PRN PO 08/10/24 19:45 08/14/24 11:37 100 MG Acetaminophen 650 mg Q6HP PRN PO 08/10/24 19:45 08/16/24 10:18 650 MG Acetaminophen/ Hydrocodone Bitart 1 tab Q4HP PRN PO 08/10/24 19:45 Hydromorphone HCl 0.5 mg Q4HP PRN IV 08/10/24 19:45 08/12/24 14:52 0.5 MG Ondansetron HCl 4 mg Q4HP PRN IV 08/10/24 19:45 08/14/24 21:18 4 MG Enoxaparin Sodium 40 mg DAILY SC 08/11/24 10:00 08/16/24 10:13 40 MG Amlodipine Besylate 10 mg DAILY PO 08/12/24 10:00 08/16/24 10:13 10 MG Labetalol HCl 10 mg Q4HP PRN IV 08/11/24 16:30 08/15/24 21:00 10 MG Levofloxacin/ Dextrose 100 ml @ 100 mls/hr DAILY IV 08/12/24 15:52 08/16/24 10:13 100 MLS/HR Pantoprazole Sodium 40 mg DAILY IV 08/13/24 10:00 08/16/24 10:13 40 MG Metronidazole 100 ml @ 100 mls/hr Q8HR IV 08/13/24 22:00 08/16/24 14:20 100 MLS/HR Tamsulosin HCl 0.4 mg QPM PO 08/14/24 18:00 08/16/24 17:23 0.4 MG Sodium Chloride 1,000 ml @ 150 mls/hr Q6H40M IV 08/14/24 19:00 08/16/24 04:19 150 MLS/HR objective PATIENT: KAIN POLLOCK ACCT: [id number] UNIT: [id number] : 1945 LOC: [facility] ROOM / BED: [address] [place] [address] AGE / SEX: 79 / F ADM STATUS: ADM IN SERVICE 53 ORDERING PHYSICIAN: SRINIVASA ANDERSEN MD PROCEDURE(s): ABPL - CT AB PEL WO CON-NO ORAL OR IV REASON: abd pain ORDER NUMBER(s): [id number], ACCESSION NUMBER(s): [id number] Exam: CT CT AB PEL WO CON-NO ORAL OR IV History: abd pain Comparison Study: None Technique: Multidetector spiral CT of the abdomen and pelvis was performed from lung bases to pubic symphysis. Imaging was performed without IV contrast. Axial, coronal and sagittal multiplanar reformats were obtained from the axial data set by the technologist. Radiation dose : Abdomen/Pelvis: CTDIvol 28.02 mGy, DLP 1407.35 mGy*cm. Findings: Evaluation of solid organs is limited due to lack of intravenous contrast use. Lung Bases: No acute or significant lung base finding. Normal heart size. No pleural or pericardial effusion. Liver: The liver is normal in size. No focal lesions. Gallbladder and biliary Tree: Unremarkable Spleen: Unremarkable Pancreas: The pancreas is grossly normal in appearance. Adrenal Glands: Unremarkable Kidneys: There is [id number] left hydronephrosis there is a distal left ureteral calculus measuring up to 7mm. Right kidney appears unremarkable. Bladder: Bladder is decompressed with a Zmaora catheter and cannot be adequately assessed. Bowel: The stomach is grossly normal in appearance. Small bowel and colon are normal in caliber and distribution. The appendix is not visualized; however, no secondary findings of acute appendicitis identified. Diverticulosis is noted. Ascites: Absent Lymphadenopathy: Shoddy retroperitoneal lymphadenopathy is noted. Abdominal wall and Mesentery: Unremarkable. Vasculature: The visualized abdominal aorta is normal in size and caliber. Evaluation of abdominal and pelvic vessels is limited due to lack of intravenous contrast. Pelvic Organs: The uterus is surgically absent. Musculoskeletal: No aggressive focal bony lesions, acute fractures or dislocation. IMPRESSION: 1. Distal left reteral calculus measuring up to 7mm associated with [id number] left hydronephrosis and hydroureter urology evaluation is recommended. Other nonspecific findings as above. Radiation optimization: All CT scans at this facility use at least one of these dose optimization techniques: Automated exposure control mA and/or kV adjustment per patient size (includes targeted exams where dose is matched to clinical indication) or iterative reconstruction. HS:Y ATED BY: SCOTT HILLIARD MD DICTATED DATE/TIME: 08/13/241657 SIGNED BY: SCOTT HILLIARD MD SIGNED DATE/TIME: 08/13/241657 CC: laboratory and microbiology Laboratory Tests 08/16/24 05:17 Test 08/16/24 05:17 Range/Units Serum Glucose 115 H 74-106 mg/dL Problem List Obesity Left ureteral colic Assessment/Plan Left ureteroscopic laser lithotripsy and possible left ureteral stent placement Dietary Evaluation Review Comments: 1) Consider a Cardiac diet 2) Continue current plan of care Expected Outcomes/Goals: 1) Pt labs to improve 2) F/U in 3-5 days Plan discussed with: Patient LUZ BECERRIL MD Aug 16, 2024 20:28
[2024-08-17] VITALS (8 sets, daily range): BP systolic 128–163; BP diastolic 79–96; PULSE 90–109; RESP 16–21; TEMP 97.4–99; O2SAT 99–100
[2024-08-17 06:56] LABS: Chloride 104 mmol/L (98-107); Potassium 4.2 mmol/L (3.5-5.1); Sodium 138 mmol/L (136-145)
[2024-08-17 06:57] LABS: Anion Gap 4 (5-15); Calcium 9.1 mg/dL (8.7-10.4); Carbon Dioxide 30 mmol/L (20-31)
[2024-08-17 07:02] LABS: Blood Urea Nitrogen 10 mg/dL (9-23); Glucose 104 mg/dL (74-106)
[2024-08-17 07:08] LABS: Basophils # (auto) 0.1 10 ^3/uL (0-0.2); Basophils % (auto) 0.6 % (0.0-2.0); Eosinophils # (auto) 0.4 10 ^3/uL (0-0.8); Eosinophils % (auto) 4.1 % (0.0-7.0); Hematocrit 29.2 % (36.0-46.0); Hemoglobin 9.7 g/dL (12.2-16.2); Lymphocytes % (auto) 10.8 % (10.0-50.0); Mean Corpuscular Hemoglobin 26.2 pg (28.0-32.0); Mean Corpuscular Hgb Conc. 33.2 g/dL (32.0-36.0); Mean Corpuscular Volume 78.8 fL (80.0-100.0); Monocytes # (auto) 0.9 10 ^3/uL (0-1.3); Monocytes % (auto) 10.2 % (0.0-12.0); Neutrophils # (auto) 6.8 10 ^3/uL (1.6-8.6); Neutrophils % (auto) 74.3 % (37.0-80.0); Nucleated Red Blood Cells % 0.2 %; Platelet Count (auto) 327 10^3/uL (140-450); Red Blood Cells 3.71 10^6/uL (4.0-5.20); Red Cell Distribution Width 16.7 % (11.8-14.3); White Blood Cell 9.1 10^3/uL (4.4-10.8)
[2024-08-17 07:55] LABS: Urine Bacteria None Seen /hpf (None Seen)
[2024-08-17 08:04] LABS: Urine Blood 1+ /uL (Negative); Urine Clarity Clear (Clear); Urine Color Light-Yellow (Yellow); Urine Hyaline Cast FEW /lpf (0 - 2); Urine Mucus FEW (None Seen); Urine Protein, UAD 1+ (Negative); Urine Specific Gravity 1.007 (1.001-1.035); Urine Urobilinogen Normal (Negative); Urine WBC 29 /hpf (0 - 5)
--- NOTE | 2024-08-17 10:42 | DVH ---
EXAM: XY CHEST PORTABLE Indication: Pain Technique: Single frontal view of the chest was obtained Comparison: XY CHEST PORTABLE on DOS: 08/12/24, XY CHEST PORTABLE on DOS: 08/10/24 FINDINGS: Lines and Tubes: None Lungs: No focal consolidation. Improved pulmonary vascular congestion. Pleura: No effusion. No pneumothorax. Cardiomediastinal contours: Cardiomegaly. Bones: No acute osseous abnormality. IMPRESSION: Cardiomegaly with improved pulmonary vascular congestion.
--- NOTE | 2024-08-17 11:21 | DVHPN2 ---
Progress Note Date Seen: Aug 17, 2024 Medical Necessity Reason Pt with a Central, PICC or Fol: Yes The following are medically ne: Zamora Catheter Reason for zamora catheter: Strict I&O Subjective Patient reports: No new complaints Review of Systems: HEENT:Normal, CVS:Normal, RESPIRATORY:Normal, GI:Normal, :Normal, MSK:Normal, NEURO:Normal Objective vital signs Vital Sign Date Time Temp Pulse Resp B/P (MAP) Pulse Ox O2 Delivery O2 Flow Rate FiO2 08/17/24 09:00 99.0 92 20 136/92 (107) 100 99.0 08/17/24 07:50 Nasal Cannula* 3 32 Total Intake and Output 08/16/24 08/16/24 08/17/24 15:00 23:00 07:00 Intake Total 100 ml 1200 ml 100 ml Output Total 2500 ml 2200 ml Balance 100 ml -1300 ml -2100 ml medications Current Medications Medications Dose Ordered Sig/Ivett Route Start Time Stop Time Status Last Admin Dose Admin Sodium Chloride 10 ml Q8HR IV 08/10/24 22:00 08/17/24 05:22 10 ML Docusate Sodium 100 mg BIDPRN PRN PO 08/10/24 19:45 08/14/24 11:37 100 MG Acetaminophen 650 mg Q6HP PRN PO 08/10/24 19:45 08/16/24 10:18 650 MG Acetaminophen/ Hydrocodone Bitart 1 tab Q4HP PRN PO 08/10/24 19:45 Hydromorphone HCl 0.5 mg Q4HP PRN IV 08/10/24 19:45 08/12/24 14:52 0.5 MG Ondansetron HCl 4 mg Q4HP PRN IV 08/10/24 19:45 08/14/24 21:18 4 MG Enoxaparin Sodium 40 mg DAILY SC 08/11/24 10:00 08/16/24 10:13 40 MG Amlodipine Besylate 10 mg DAILY PO 08/12/24 10:00 08/16/24 10:13 10 MG Labetalol HCl 10 mg Q4HP PRN IV 08/11/24 16:30 08/15/24 21:00 10 MG Levofloxacin/ Dextrose 100 ml @ 100 mls/hr DAILY IV 08/12/24 15:52 08/17/24 09:18 100 MLS/HR Pantoprazole Sodium 40 mg DAILY IV 08/13/24 10:00 08/17/24 09:18 40 MG Metronidazole 100 ml @ 100 mls/hr Q8HR IV 08/13/24 22:00 08/17/24 05:44 100 MLS/HR Tamsulosin HCl 0.4 mg QPM PO 08/14/24 18:00 08/16/24 17:23 0.4 MG Sodium Chloride 1,000 ml @ 150 mls/hr Q6H40M IV 08/14/24 19:00 08/17/24 07:01 150 MLS/HR Examination: GENERAL:Normal, HEENT:Normal, NECK:Normal, LUNGS:Normal, CVS:Normal, ABDOMEN:Normal, MSK:Normal, SKIN:Normal, NEURO:Normal, :Normal laboratory and microbiology Laboratory Tests 08/17/24 06:20 Test 08/17/24 06:20 Range/Units Serum Glucose 104 74-106 mg/dL Microbiology Date/Time Source Procedure Growth Status 08/10/24 17:14 Blood Blood Culture - Final NO GROWTH AFTER 5 DAYS OF INCUBATION. Complete 08/10/24 17:00 Voided Urine Urine Culture - Final Escherichia coli Complete Problem List/Assessment/Plan Problem List/Assessment/Plan #1 sepsis with uti due to e coli: iv levaquin, flagyl #2 htn: adjust meds #3 acute renal failure ?vasomotor nephropathy: ivf #4 morbid obesity #5 h/o cva #6 bedbound status #7 chronic resp failure #8 chronic systolic/diastolic heart failure: echo #9 anemia #10 abd pain with gallstones #11 left renal stone: eswl today advance care planning- full code- time spent 21 mins Plan discussed with: Patient Dietary Evaluation Review Comments: 1) Consider a Cardiac diet 2) Continue current plan of care Expected Outcomes/Goals: 1) Pt labs to improve 2) F/U in 3-5 days Date of Service: Aug 17, 2024 Billing Provider: SRINIVASA ANDERSEN MD Common Visit Codes: [id number] INP/OBS CARE(HIGH) SRINIVASA ANDERSEN MD Aug 17, 2024 11:21
[2024-08-17] MEDS: SODIUM CHLORIDE 0.9% 1,000 ML IV SCH (12:29)
[2024-08-17] MEDS: IOHEXOL 300 MG/ML 100ML BOTTLE IJ ONE (12:52)
[2024-08-17] MEDS ORDERED: MIDAZOLAM HCL 2MG/2ML 2ml VIAL (1mg/ml) ONE (14:29)
[2024-08-17] MEDS ORDERED: KETAMINE 50mg/ML 1ml syringe ONE ×2 (14:29→15:06)
[2024-08-17] MEDS ORDERED: fentaNYL CITRATE 100 MCG/2 ML VL ONE (14:29)
[2024-08-17] MEDS ORDERED: PROPOFOL 10 MG/ML 20 ML IV ONE (14:30)
[2024-08-17] MEDS ORDERED: ePHEDrine SULFATE 50 MG/ML AMP ONE (14:30)
[2024-08-17] MEDS ORDERED: GLYCOPYRROLATE 0.2 MG/ML 1ML VIAL ONE (14:30)
[2024-08-17] MEDS ORDERED: ONDANSETRON HCL 4 MG/2 ML VIAL ONE (14:30)
[2024-08-17] MEDS ORDERED: diphenhdrAMINE HCL 50 MG/1 ML VL ONE (16:11)
[2024-08-17] MEDS ORDERED: HYDROmorphone HCL 2 MG/ML VL/or syr IV PRN (16:30)
[2024-08-17] MEDS: ONDANSETRON HCL 4 MG/2 ML VIAL IV ONE (16:30)
--- NOTE | 2024-08-17 17:02 | POSTOP ---
Post-Operative Note Post-Operative Note Preop Diagnosis Left distal ureteral calculus, 8-9 mm Mild left hydronephrosis Postop Diagnosis: Same Operation performed Left ureteroscopic laser lithotripsy Anesthesia: Regional Anesthesiologist: Oscar Surgeon Luz Becerril Date 08/17/24 Time 17:01 LUZ BECERRIL MD Aug 17, 2024 17:02
[2024-08-18] VITALS (7 sets, daily range): BP systolic 133–149; BP diastolic 69–82; PULSE 94–108; RESP 18–21; TEMP 97.4–98.6; O2SAT 98–100
--- NOTE | 2024-08-18 03:59 | DVH ---
C-ARM FLUOROSCOPY: PROCEDURE: lithotripsy and stent placement FLUOROSCOPY TIME: 37.8 sec
--- NOTE | 2024-08-18 03:59 | DVH ---
C-ARM FLUOROSCOPY: PROCEDURE: lithotripsy and stent placement FLUOROSCOPY TIME: 37.8 sec
[2024-08-18 10:56] LABS: Eosinophils # (auto) 0.4 10 ^3/uL (0-0.8); Hemoglobin 10.2 g/dL (12.2-16.2); Lymphocytes # (auto) 1.2 10 ^3/uL (0.4-5.4); Mean Corpuscular Hgb Conc. 31.7 g/dL (32.0-36.0); Platelet Count (auto) 329 10^3/uL (140-450)
[2024-08-18 10:58] LABS: Basophils # (auto) 0 10 ^3/uL (0-0.2); Basophils % (auto) 0.6 % (0.0-2.0); Eosinophils % (auto) 4.6 % (0.0-7.0); Hematocrit 32.3 % (36.0-46.0); Lymphocytes % (auto) 14.4 % (10.0-50.0); Mean Corpuscular Hemoglobin 25.5 pg (28.0-32.0); Mean Corpuscular Volume 80.4 fL (80.0-100.0); Monocytes # (auto) 0.8 10 ^3/uL (0-1.3); Monocytes % (auto) 9.4 % (0.0-12.0); Neutrophils # (auto) 5.8 10 ^3/uL (1.6-8.6); Nucleated Red Blood Cells % 0.1 %; Red Blood Cells 4.01 10^6/uL (4.0-5.20); Red Cell Distribution Width 17.2 % (11.8-14.3); White Blood Cell 8.1 10^3/uL (4.4-10.8)
[2024-08-18 11:18] LABS: Alanine Aminotransferase 12 U/L (7-40); Albumin 2.9 g/dL (3.2-4.8); Alkaline Phosphatase 77 U/L (46-116); Anion Gap 4 (5-15); Aspartate Aminotransferase 21 U/L (13-40); BUN/Creatinine Ratio 11.8 (10.0-20.0); Blood Urea Nitrogen 9 mg/dL (9-23); Calcium 8.9 mg/dL (8.7-10.4); Carbon Dioxide 30 mmol/L (20-31); Chloride 106 mmol/L (98-107); Glucose 125 mg/dL (74-106); Potassium 4.1 mmol/L (3.5-5.1); Sodium 140 mmol/L (136-145)
[2024-08-18 11:19] LABS: Bilirubin, Total 0.2 mg/dL (0.2-1.0); Total Protein 6.8 g/dL (5.7-8.2)
--- NOTE | 2024-08-18 15:14 | DVHPN2 ---
Progress Note Date Seen: Aug 18, 2024 Medical Necessity Reason Pt with a Central, PICC or Fol: Yes The following are medically ne: Zamora Catheter Reason for zamora catheter: Strict I&O Subjective Patient reports: No new complaints Review of Systems: HEENT:Normal, CVS:Normal, RESPIRATORY:Normal, GI:Normal, :Normal, MSK:Normal, NEURO:Normal Objective vital signs Vital Sign Date Time Temp Pulse Resp B/P (MAP) Pulse Ox O2 Delivery O2 Flow Rate FiO2 08/18/24 10:18 147/74 08/18/24 08:56 98.6 98 18 99 98.6 08/18/24 08:00 Nasal Cannula* 3 32 Total Intake and Output 08/17/24 08/17/24 08/18/24 15:00 23:00 07:00 Intake Total 200 ml 0 ml 1344 ml Output Total 250 ml 2200 ml Balance 200 ml -250 ml -856 ml medications Current Medications Medications Dose Ordered Sig/Ivett Route Start Time Stop Time Status Last Admin Dose Admin Sodium Chloride 10 ml Q8HR IV 08/10/24 22:00 08/18/24 14:00 10 ML Docusate Sodium 100 mg BIDPRN PRN PO 08/10/24 19:45 08/14/24 11:37 100 MG Acetaminophen 650 mg Q6HP PRN PO 08/10/24 19:45 08/16/24 10:18 650 MG Acetaminophen/ Hydrocodone Bitart 1 tab Q4HP PRN PO 08/10/24 19:45 Hydromorphone HCl 0.5 mg Q4HP PRN IV 08/10/24 19:45 08/12/24 14:52 0.5 MG Ondansetron HCl 4 mg Q4HP PRN IV 08/10/24 19:45 08/14/24 21:18 4 MG Enoxaparin Sodium 40 mg DAILY SC 08/11/24 10:00 08/18/24 10:17 40 MG Amlodipine Besylate 10 mg DAILY PO 08/12/24 10:00 08/18/24 10:18 10 MG Labetalol HCl 10 mg Q4HP PRN IV 08/11/24 16:30 08/17/24 22:07 10 MG Levofloxacin/ Dextrose 100 ml @ 100 mls/hr DAILY IV 08/12/24 15:52 08/17/24 09:18 100 MLS/HR Pantoprazole Sodium 40 mg DAILY IV 08/13/24 10:00 08/18/24 10:17 40 MG Metronidazole 100 ml @ 100 mls/hr Q8HR IV 08/13/24 22:00 08/18/24 14:39 100 MLS/HR Tamsulosin HCl 0.4 mg QPM PO 08/14/24 18:00 08/17/24 17:07 0.4 MG Sodium Chloride 1,000 ml @ 100 mls/hr Q10H IV 08/17/24 11:15 08/18/24 07:15 100 MLS/HR Examination: GENERAL:Normal, HEENT:Normal, NECK:Normal, LUNGS:Normal, CVS:Normal, ABDOMEN:Normal, MSK:Normal, SKIN:Normal, NEURO:Normal, :Normal laboratory and microbiology Laboratory Tests 08/18/24 10:05 Test 08/18/24 10:05 Range/Units Serum Glucose 125 H 74-106 mg/dL Microbiology Date/Time Source Procedure Growth Status 08/10/24 17:14 Blood Blood Culture - Final NO GROWTH AFTER 5 DAYS OF INCUBATION. Complete 08/10/24 17:00 Voided Urine Urine Culture - Final Escherichia coli Complete Problem List/Assessment/Plan Problem List/Assessment/Plan #1 sepsis with uti due to e coli: iv levaquin, flagyl #2 htn: adjust meds #3 acute renal failure ?vasomotor nephropathy #4 morbid obesity #5 h/o cva #6 bedbound status #7 chronic resp failure #8 chronic systolic/diastolic heart failure: echo #9 anemia #10 abd pain with gallstones #11 left renal stone: s/p lithotripsy advance care planning- full code- time spent 21 mins Plan discussed with: Patient My Orders My Orders Orders - SRINIVASA ANDERSEN MD Procedure Category Date Status Time Kub Abdomen Single XY 08/17/24 Resulted View 16:00 C Arm Fluoroscopy Up XY 08/17/24 Resulted To 60min 16:00 Dietary Evaluation Review Comments: 1) Consider a Cardiac diet 2) Continue current plan of care Expected Outcomes/Goals: 1) Pt labs to improve 2) F/U in 3-5 days Date of Service: Aug 18, 2024 Billing Provider: SRINIVASA ANDERSEN MD Common Visit Codes: [id number] INP/OBS CARE(HIGH) SRINIVASA ANDERSEN MD Aug 18, 2024 15:14
--- NOTE | 2024-08-18 18:57 | DVHPN2 ---
Progress Note - Dictate Date Seen: Aug 18, 2024 Medical Necessity Reason Pt with a Central, PICC or Fol: Yes The following are medically ne: Zamora Catheter Reason for zamora catheter: Strict I&O vital signs Vital Sign Date Time Temp Pulse Resp B/P (MAP) Pulse Ox O2 Delivery O2 Flow Rate FiO2 08/18/24 17:00 97.4 97 18 148/82 (104) 99 97.4 08/18/24 08:00 Nasal Cannula* 3 32 Total Intake and Output 08/17/24 08/17/24 08/18/24 15:00 23:00 07:00 Intake Total 200 ml 0 ml 1344 ml Output Total 250 ml 2200 ml Balance 200 ml -250 ml -856 ml medications Current Medications Medications Dose Ordered Sig/Ivett Route Start Time Stop Time Status Last Admin Dose Admin Sodium Chloride 10 ml Q8HR IV 08/10/24 22:00 08/18/24 14:00 10 ML Docusate Sodium 100 mg BIDPRN PRN PO 08/10/24 19:45 08/14/24 11:37 100 MG Acetaminophen 650 mg Q6HP PRN PO 08/10/24 19:45 08/16/24 10:18 650 MG Acetaminophen/ Hydrocodone Bitart 1 tab Q4HP PRN PO 08/10/24 19:45 Hydromorphone HCl 0.5 mg Q4HP PRN IV 08/10/24 19:45 08/12/24 14:52 0.5 MG Ondansetron HCl 4 mg Q4HP PRN IV 08/10/24 19:45 08/14/24 21:18 4 MG Enoxaparin Sodium 40 mg DAILY SC 08/11/24 10:00 08/18/24 10:17 40 MG Amlodipine Besylate 10 mg DAILY PO 08/12/24 10:00 08/18/24 10:18 10 MG Labetalol HCl 10 mg Q4HP PRN IV 08/11/24 16:30 08/17/24 22:07 10 MG Levofloxacin/ Dextrose 100 ml @ 100 mls/hr DAILY IV 08/12/24 15:52 08/17/24 09:18 100 MLS/HR Tamsulosin HCl 0.4 mg QPM PO 08/14/24 18:00 08/18/24 17:06 0.4 MG Pantoprazole Sodium 40 mg DAILY@0600 PO 08/19/24 06:00 objective sleeping soundly laboratory and microbiology Laboratory Tests 08/18/24 10:05 Test 08/18/24 10:05 Range/Units Serum Glucose 125 H 74-106 mg/dL Assessment/Plan cleared from urology standpoint f/u 2 weeks Problems(with codes): (1) Hydronephrosis with renal and ureteral calculous obstruction Dietary Evaluation Review Comments: 1) Consider a Cardiac diet 2) Continue current plan of care Expected Outcomes/Goals: 1) Pt labs to improve 2) F/U in 3-5 days Plan discussed with: Other LILIAN BUSTOS NP Aug 18, 2024 18:57
[2024-08-19] VITALS (7 sets, daily range): BP systolic 122–172; BP diastolic 68–92; PULSE 97–114; RESP 16–21; TEMP 97.6–98.5; O2SAT 17–100
[2024-08-19] MEDS: PANTOPRAZOLE 40 MG TAB PO SCH (06:07)
--- NOTE | 2024-08-19 15:04 | DVHPN2 ---
Progress Note Date Seen: Aug 19, 2024 Medical Necessity Reason Pt with a Central, PICC or Fol: Yes The following are medically ne: Zamora Catheter Reason for zamora catheter: Strict I&O Subjective Patient reports: No new complaints Review of Systems: HEENT:Normal, CVS:Normal, RESPIRATORY:Normal, GI:Normal, :Normal, MSK:Normal, NEURO:Normal Objective vital signs Vital Sign Date Time Temp Pulse Resp B/P (MAP) Pulse Ox O2 Delivery O2 Flow Rate FiO2 08/19/24 12:49 98.3 103 18 122/68 (86) 99 98.3 08/19/24 08:00 Nasal Cannula* 2 28 Total Intake and Output 08/18/24 08/18/24 08/19/24 15:00 23:00 07:00 Intake Total 2136 ml 1570 ml Output Total 3550 ml 1425 ml Balance -1414 ml 145 ml medications Current Medications Medications Dose Ordered Sig/Ivett Route Start Time Stop Time Status Last Admin Dose Admin Sodium Chloride 10 ml Q8HR IV 08/10/24 22:00 08/19/24 14:26 10 ML Docusate Sodium 100 mg BIDPRN PRN PO 08/10/24 19:45 08/14/24 11:37 100 MG Acetaminophen 650 mg Q6HP PRN PO 08/10/24 19:45 08/16/24 10:18 650 MG Acetaminophen/ Hydrocodone Bitart 1 tab Q4HP PRN PO 08/10/24 19:45 Hydromorphone HCl 0.5 mg Q4HP PRN IV 08/10/24 19:45 08/19/24 09:21 0.5 MG Ondansetron HCl 4 mg Q4HP PRN IV 08/10/24 19:45 08/14/24 21:18 4 MG Enoxaparin Sodium 40 mg DAILY SC 08/11/24 10:00 08/19/24 09:19 40 MG Amlodipine Besylate 10 mg DAILY PO 08/12/24 10:00 08/19/24 09:20 10 MG Labetalol HCl 10 mg Q4HP PRN IV 08/11/24 16:30 08/19/24 02:24 10 MG Levofloxacin/ Dextrose 100 ml @ 100 mls/hr DAILY IV 08/12/24 15:52 08/17/24 09:18 100 MLS/HR Tamsulosin HCl 0.4 mg QPM PO 08/14/24 18:00 08/18/24 17:06 0.4 MG Pantoprazole Sodium 40 mg DAILY@0600 PO 08/19/24 06:00 08/19/24 06:07 40 MG Examination: GENERAL:Normal, HEENT:Normal, NECK:Normal, LUNGS:Normal, CVS:Normal, ABDOMEN:Normal, MSK:Normal, MSK:Abnormal (RIGHT KNEE TENDERNESS), SKIN:Normal, NEURO:Normal, :Normal laboratory and microbiology Laboratory Tests 08/18/24 10:05 Test 08/18/24 10:05 Range/Units Serum Glucose 125 H 74-106 mg/dL Microbiology Date/Time Source Procedure Growth Status 08/10/24 17:14 Blood Blood Culture - Final NO GROWTH AFTER 5 DAYS OF INCUBATION. Complete 08/10/24 17:00 Voided Urine Urine Culture - Final Escherichia coli Complete Problem List/Assessment/Plan Problem List/Assessment/Plan #1 sepsis with uti due to e coli: iv levaquin, flagyl #2 htn: adjust meds #3 acute renal failure ?vasomotor nephropathy #4 morbid obesity #5 h/o cva #6 bedbound status #7 chronic resp failure #8 chronic systolic/diastolic heart failure: echo #9 anemia #10 abd pain with gallstones #11 left renal stone: s/p lithotripsy #12 right leg pain/swelling: doppler, xray knee advance care planning- full code- time spent 21 mins Plan discussed with: Patient My Orders My Orders Orders - SRINIVASA ANDERSEN MD Procedure Category Date Status Time * Logistics Associate CONS 08/18/24 Transmitted Consult Pantoprazole Tablet PHA 08/19/24 In Process (Protonix Tablet) 06:00 Cardiac DIET 08/19/24 Transmitted Diet-2gna,Lofat,Lochol Lunch Stone Analysis Urinary LAB 08/17/24 In Process 16:05 Dietary Evaluation Review Comments: 1) Consider a Cardiac diet 2) Continue current plan of care Expected Outcomes/Goals: 1) Pt labs to improve 2) F/U in 3-5 days Date of Service: Aug 19, 2024 Billing Provider: SRINIVASA ANDERSEN MD Common Visit Codes: [id number] INP/OBS CARE(HIGH) SRINIVASA ANDERSEN MD Aug 19, 2024 15:04
[2024-08-19] MEDS: POTASSIUM CHL 10 Meq TABLET PO ONE (15:56)
--- NOTE | 2024-08-19 15:58 | DVH ---
CLINICAL INDICATION: RIGHT KNEE PAIN TECHNIQUE: 2 radiographic views of the right knee were obtained. Comparison: None FINDINGS/IMPRESSION: There is no evidence of acute fracture or dislocation. 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 There is a 2 cm calcified loose body in the infrapatellar region. Consider non emergen t MR for further evaluation. The alignment is anatomical. There is no radiopaque foreign body.
[2024-08-19] MEDS: KETOROLAC TROMETH 30 MG/ML 1ML VIAL IV ONE (16:47)
[2024-08-19] MEDS: FUROSEMIDE 20 MG/2 ML VIAL IV ONE (16:47)
--- NOTE | 2024-08-19 17:08 | DVH ---
Bilateral lower extremity venous duplex Clinical History: DVT Comparison: None Technique: Duplex Doppler evaluation of the deep venous systems of both lower extremities from the common femora l veins to the popliteal veins including color Doppler and spectral/pulsed waveform analysis was perf ormed. Findings: RIGHT SIDE: The common femoral vein demonstrates nonocclusive thrombus There is compressibility/patency of the great saphenous vein at the proximal thigh. The femoral vein demonstrates nonocclusive thrombus in the proximal and mid femoral vein. The deep femoral vein demonstrates appropriate compressibility and waveform variability. The popliteal vein not visualized LEFT SIDE: The common femoral vein demonstrates appropriate compressibility and waveform variability. There is compressibility/patency of the great saphenous vein at the proximal thigh. The femoral vein demonstrates appropriate compressibility and waveform variability. The deep femoral vein demonstrates appropriate compressibility and waveform variability. The popliteal vein demonstrates appropriate compressibility and waveform variability. There is normal compressibility at the tibioperoneal trunk. Impression: 1. Nonocclusive thrombus noted throughout the right lower extremity. Findings consistent with DVT. 2.
[2024-08-20] VITALS (8 sets, daily range): BP systolic 127–162; BP diastolic 56–88; PULSE 97–111; RESP 17–20; TEMP 98.1–98.8; O2SAT 98–100
[2024-08-20] MEDS: KETOROLAC TROMETH 30 MG/ML 1ML VIAL IV ONE (14:15)
--- NOTE | 2024-08-20 15:12 | DVHPN2 ---
Progress Note Date Seen: Aug 20, 2024 Medical Necessity Reason Pt with a Central, PICC or Fol: Yes The following are medically ne: Zamora Catheter Reason for zamora catheter: Strict I&O Objective vital signs Vital Sign Date Time Temp Pulse Resp B/P (MAP) Pulse Ox O2 Delivery O2 Flow Rate FiO2 08/20/24 13:00 98.3 108 17 134/56 (82) 100 98.3 08/20/24 08:15 Nasal Cannula* 2 28 Total Intake and Output 08/19/24 08/19/24 08/20/24 15:00 23:00 07:00 Intake Total 1850 ml 722 ml Output Total 1650 ml 1700 ml Balance 200 ml -978 ml medications Current Medications Medications Dose Ordered Sig/Ivett Route Start Time Stop Time Status Last Admin Dose Admin Sodium Chloride 10 ml Q8HR IV 08/10/24 22:00 08/20/24 14:16 10 ML Docusate Sodium 100 mg BIDPRN PRN PO 08/10/24 19:45 08/14/24 11:37 100 MG Acetaminophen 650 mg Q6HP PRN PO 08/10/24 19:45 08/20/24 11:47 650 MG Ondansetron HCl 4 mg Q4HP PRN IV 08/10/24 19:45 08/14/24 21:18 4 MG Enoxaparin Sodium 40 mg DAILY SC 08/11/24 10:00 08/20/24 11:03 40 MG Amlodipine Besylate 10 mg DAILY PO 08/12/24 10:00 08/20/24 11:02 10 MG Labetalol HCl 10 mg Q4HP PRN IV 08/11/24 16:30 08/19/24 02:24 10 MG Levofloxacin/ Dextrose 100 ml @ 100 mls/hr DAILY IV 08/12/24 15:52 08/17/24 09:18 100 MLS/HR Tamsulosin HCl 0.4 mg QPM PO 08/14/24 18:00 08/19/24 19:18 0.4 MG Pantoprazole Sodium 40 mg DAILY@0600 PO 08/19/24 06:00 08/20/24 06:30 40 MG laboratory and microbiology Laboratory Tests 08/18/24 10:05 Test 08/18/24 10:05 Range/Units Serum Glucose 125 H 74-106 mg/dL Microbiology Date/Time Source Procedure Growth Status 08/10/24 17:14 Blood Blood Culture - Final NO GROWTH AFTER 5 DAYS OF INCUBATION. 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
[2024-08-20] MEDS: ENOXAPARIN SOD 150 MG/1 ML SYRINGE SC ONE (15:30)
[2024-08-20] MEDS: AMOXICILLIN/CLAVUL 875 MG TAB PO SCH (21:24)
[2024-08-20] MEDS: APIXABAN 5 MG TAB PO SCH (21:25)
[2024-08-21] VITALS (8 sets, daily range): BP systolic 132–155; BP diastolic 51–86; PULSE 96–114; RESP 18–22; TEMP 36.8; O2SAT 97–100
[2024-08-21] MEDS: LISINOPRIL 5 MG TAB PO SCH (10:26)
[2024-08-21 12:29] LABS: Chloride 103 mmol/L (98-107); Potassium 4.7 mmol/L (3.5-5.1); Sodium 139 mmol/L (136-145)
[2024-08-21 12:30] LABS: Anion Gap 5 (5-15); Basophils # (auto) 0.1 10 ^3/uL (0-0.2); Calcium 8.7 mg/dL (8.7-10.4); Carbon Dioxide 31 mmol/L (20-31); Eosinophils # (auto) 0.3 10 ^3/uL (0-0.8); Lymphocytes # (auto) 1.6 10 ^3/uL (0.4-5.4)
[2024-08-21 12:33] LABS: Basophils % (auto) 0.9 % (0.0-2.0); Eosinophils % (auto) 3.9 % (0.0-7.0); Hematocrit 28.6 % (36.0-46.0); Hemoglobin 9.3 g/dL (12.2-16.2); Mean Corpuscular Hemoglobin 25.9 pg (28.0-32.0); Mean Corpuscular Hgb Conc. 32.4 g/dL (32.0-36.0); Mean Corpuscular Volume 80.1 fL (80.0-100.0); Monocytes # (auto) 0.6 10 ^3/uL (0-1.3); Monocytes % (auto) 7.8 % (0.0-12.0); Neutrophils # (auto) 5.3 10 ^3/uL (1.6-8.6); Neutrophils % (auto) 67.4 % (37.0-80.0); Platelet Count (auto) 364 10^3/uL (140-450); Red Blood Cells 3.57 10^6/uL (4.0-5.20); Red Cell Distribution Width 17.1 % (11.8-14.3); White Blood Cell 7.9 10^3/uL (4.4-10.8)
[2024-08-21 12:35] LABS: BUN/Creatinine Ratio 15.9 (10.0-20.0); Blood Urea Nitrogen 11 mg/dL (9-23); Glucose 100 mg/dL (74-106)
--- NOTE | 2024-08-21 14:33 | DVHDS2 ---
Discharge Summary Date of Admission Aug 10, 2024 at 19:50 Date of Discharge: Aug 21, 2024 Admitting Diagnosis Sepsis secondary to UTI and pneumonia Labs/Diagnostic Data: Laboratory Results Test 08/21/24 11:49 08/18/24 10:05 08/17/24 16:05 08/17/24 07:50 White Blood Count 7.9 10^3/uL (4.4-10.8) Red Blood Count 3.57 10^6/uL (4.0-5.20) Hemoglobin 9.3 g/dL (12.2-16.2) Hematocrit 28.6 % (36.0-46.0) Mean Corpuscular Volume 80.1 fL (80.0-100.0) Mean Corpuscular Hemoglobin 25.9 pg (28.0-32.0) Mean Corpuscular Hemoglobin Concent 32.4 g/dL (32.0-36.0) Red Cell Distribution Width 17.1 % (11.8-14.3) Platelet Count 364 10^3/uL (140-450) Mean Platelet Volume 7.7 fL (6.9-10.8) Neutrophils (%) (Auto) 67.4 % (37.0-80.0) Lymphocytes (%) (Auto) 20.0 % (10.0-50.0) Monocytes (%) (Auto) 7.8 % (0.0-12.0) Eosinophils (%) (Auto) 3.9 % (0.0-7.0) Basophils (%) (Auto) 0.9 % (0.0-2.0) Neutrophils # (Auto) 5.3 10 ^3/uL (1.6-8.6) Lymphocytes # (Auto) 1.6 10 ^3/uL (0.4-5.4) Monocytes # (Auto) 0.6 10 ^3/uL (0-1.3) Eosinophils # (Auto) 0.3 10 ^3/uL (0-0.8) Basophils # (Auto) 0.1 10 ^3/uL (0-0.2) Nucleated Red Blood Cells 0.0 % Sodium Level 139 mmol/L (136-145) Potassium Level 4.7 mmol/L (3.5-5.1) Chloride Level 103 mmol/L (98-107) Carbon Dioxide Level 31 mmol/L (20-31) Anion Gap 5 (5-15) Blood Urea Nitrogen 11 mg/dL (9-23) Creatinine 0.69 mg/dL (0.550-1.02) Glomerular Filtration Rate Calc 89 mL/min (>90) BUN/Creatinine Ratio 15.9 (10.0-20.0) Serum Glucose 100 mg/dL (74-106) Calcium Level 8.7 mg/dL (8.7-10.4) Total Bilirubin 0.2 mg/dL (0.2-1.0) Aspartate Amino Transferase (AST) 21 U/L (13-40) Alanine Aminotransferase (ALT) 12 U/L (7-40) Alkaline Phosphatase 77 U/L (46-116) Total Protein 6.8 g/dL (5.7-8.2) Albumin 2.9 g/dL (3.2-4.8) Urine Color Light-yellow (Yellow) Urine Clarity Clear (Clear) Urine pH 6.0 (5.0-9.0) Urine Specific [place] 1.007 (1.001-1.035) Urine Protein 1+ (Negative) Urine Ketones Negative (Negative) Urine Blood 1+ /uL (Negative) Urine Nitrite Negative (Negative) Urine Bilirubin Negative (Negative) Urine Urobilinogen Normal mg/dL (Negative) Urine Leukocyte Esterase 3+ /uL (Negative) Urine RBC 10 /hpf (0 - 4) Urine WBC 29 /hpf (0 - 5) Urine Squamous Epithelial Cells None seen /hpf (<5) Urine Bacteria None seen /hpf (None Seen) Urine Hyaline Casts Few /lpf (0 - 2) Urine Mucus Few (None Seen) Urine Glucose Normal mg/dL (Normal) Test 08/14/24 06:54 08/12/24 17:30 08/12/24 04:08 08/10/24 17:14 Prothrombin Time 12.2 sec (9.3-11.8) Prothrombin Time INR 1.16 (0.9-1.15) Activated Partial Thromboplast Time 29.4 SEC (24.5-34.5) Hepatitis B Surface Antigen Negative (Negative) Hepatitis C Antibody Negative (Negative) Hemoglobin A1c 5.8 % A1C (<5.7) Thyroid Stimulating Hormone (TSH) 1.91 uIU/mL (0.55-4.78) Lactic Acid Level 1.2 mmol/L (0.4-2.0) Test 08/10/24 15:33 08/10/24 13:30 Differential Total Cells Counted 100.0 (100) Neutrophils % (Manual) 84 (37.0-80.0) Band Neutrophils % (Manual) 7 Lymphocytes % (Manual) 1 (10.0-50.0) Monocytes % (Manual) 8 (0-12) Eosinophils % (Manual) 0 (0-7) Basophils % (Manual) 0 (0.0-2.0) Metamyelocytes % (manual) 0 Myelocytes % (Manual) 0 Promyelocytes % (Manual) 0 Blast Cells % (Manual) 0 Reactive Lymphocytes 0 Platelet Estimate Adequate Troponin I High Sensitivity 7 ng/L (</=34) Other Laboratory Tests 08/21/24 11:49 Brief Hx & Hospital Course: History of Present Illness 79 year old female FEDERICO presents to the ED with chief complaint of elevated blood pressure. Patient reports she is coming from [facility] for an elevated blood pressure of 169/105 and an elevated heart rate of 130. Patient relays that she is bed ridden and does not walk in the facility. Patient denies any dizziness, chest pain, weakness, SOB, N/V, or headache. Course of hospitalization: Patient was started on empiric antibiotic therapy. CT scan of the abdomen pelvis reveals a seven 8 mm renal stone. Urology consultation has been placed. Patient had cystoscopy with lithotripsy. Patient was found to have positive UTI with E coli. Antibiotic therapy has been deescalated. Patient also had problems with pain or lower extremity with nonocclusive DVT noted to right lower extremity. Patient was placed on therapeutic dose of Eliquis, with patient noted to be on low-dose Eliquis prior to coming to the hospital. At this time the patient has been afebrile, hemodynamically stable, without leukocytosis. She will be transferred back to for [facility] and to continue all medications per reconciliation form including Augmentin 875 mg p.o. twice a day for seven more days as well as Eliquis as directed for DVT starting dose with continuation of medication. Physical examination General: Alert and Oriented x3. No acute distress. Well-nourished. Eyes: EOMI. Anicteric. HENT: Moist mucous membranes. Lungs: Clear to auscultation bilaterally. No accessory muscle use. Cardiovascular: Regular rate and rhythm. No murmur. No JVD. Abdomen: Soft, non-tender and non-distended. No palpable masses. Extremities: No edema. Non-tender. Skin: No rashes or lesions. Warm. Neurologic: No focal neurological deficits. CN II-XII grossly intact, but not individually tested. Psychiatric: Cooperative. Appropriate mood and affect. Total time spent with patient discussing and formulating plan of care: 35 minutes. This medical document was created using an electronic medical record system with [employer] dictation system. Although this document has been carefully reviewed, there may still be some phonetic and typographical errors. These areas are purely typographical due to imperfections of the software programs, and do not reflect any compromise in the patient's medical care. Consults/Reason for consult Urology consultation: Obstructive uropathy with nephrolithiasis Operations or Procedures 08/17/2024: Cystoscopy with laser lithotripsy Condition at Discharge: Poor Final Diagnosis/Problems List Sepsis secondary to UTI and pneumonia Secondary Diagnosis: #1 sepsis with uti due to e coli: augmentin #2 htn: adjust meds #3 acute renal failure ?vasomotor nephropathy #4 morbid obesity #5 h/o cva #6 bedbound status #7 chronic resp failure #8 chronic systolic/diastolic heart failure: echo #9 anemia #10 abd pain with gallstones #11 left renal stone: s/p lithotripsy #12 right leg pain/swelling-dvt: eliquis #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 Patient was counseled about treatment plan, medications, possible side effects, patientverbalized understanding. All questions were answered to the best of my ability. This discharge took greater then 30 minutes in planning, reviewing documentation, counseling the patient, and discussing with other team members." ASSESSMENT ASSESSMENT Assessment Sepsis secondary to UTI and pneumonia Date of Service: Aug 21, 2024 Billing Provider: SALBINO,KAM HUMAN SERVICES ASSISTANT Common Visit Codes: [id number] DISCH DAY >30min NEGIN ENGLE HUMAN SERVICES ASSISTANT Aug 21, 2024 14:33
[2024-08-22 01:00] VITALS: BP 152/71; PULSE 96; RESP 19; TEMP 98.7; O2SAT 100
[2024-08-22 05:00] VITALS: BP 153/81; PULSE 95; RESP 19; TEMP 98.2; O2SAT 99
[2024-08-22 09:00] VITALS: BP 133/56; PULSE 95; RESP 18; TEMP 98.4; O2SAT 98
[2024-08-22 13:00] VITALS: BP 124/57; PULSE 90; RESP 18; TEMP 98.2; O2SAT 98
--- NOTE | 2024-08-22 14:11 | DVHPN2 ---
Subjective The patient is seen and examined at bedside. No change overnight. Reviewed: Care Plan, H&P, Labs, Medications, Previous Orders, Radiology, Other (Consultation) Changes from previous H/P or p: No Changes Objective Vitals Vital Signs Date Time Temp Pulse Resp B/P (MAP) Pulse Ox O2 Delivery O2 Flow Rate FiO2 08/22/24 09:24 133/56 08/22/24 09:00 98.4 95 18 98 98.4 08/22/24 08:12 Nasal Cannula* 2 28 Intake/Output Intake and Output 08/22/24 07:00 Intake Total 2200 ml Output Total 2000 ml Balance 200 ml Intake Oral 2200 ml Output Urine Total 2000 ml # Bowel Movements 1 General Appearance: Alert, Oriented X3, Cooperative, No acute distress HEENT: Atraumatic Lungs: Other (Decreased air entry bilateral) Cardiovascular: Regular rate, Normal S1, Normal S2 Abdomen: Normal bowel sounds, Soft, Other (Left CVA tenderness) Genitourinary: Other (Isaacs's ) Back: Flank Tenderness (Left) Neuro: Normal speech, Cranial nerves 3-12 NL Psych/Mental Status: Mental status NL, Mood NL Medications Current Medications Medications Dose Ordered Sig/Ivett Route Start Time Stop Time Status Last Admin Dose Admin Sodium Chloride 10 ml Q8HR IV 08/10/24 22:00 08/22/24 05:35 10 ML Docusate Sodium 100 mg BIDPRN PRN PO 08/10/24 19:45 08/14/24 11:37 100 MG Acetaminophen 650 mg Q6HP PRN PO 08/10/24 19:45 08/22/24 11:39 650 MG Ondansetron HCl 4 mg Q4HP PRN IV 08/10/24 19:45 08/21/24 15:32 4 MG Amlodipine Besylate 10 mg DAILY PO 08/12/24 10:00 08/22/24 09:23 10 MG Labetalol HCl 10 mg Q4HP PRN IV 08/11/24 16:30 08/22/24 05:28 10 MG Pantoprazole Sodium 40 mg DAILY@0600 PO 08/19/24 06:00 08/22/24 05:28 40 MG Amoxicillin/ Clavulanate Potassium 875 mg Q12HR PO 08/20/24 22:00 08/22/24 09:22 875 MG Apixaban 10 mg BID PO 08/20/24 22:00 08/27/24 21:59 08/22/24 09:24 10 MG Apixaban 5 mg BID PO 08/27/24 22:00 Lisinopril 10 mg DAILY PO 08/21/24 10:00 08/22/24 09:24 10 MG Laboratory Results Laboratory Tests 08/21/24 11:49 Urinalysis Test 08/17/24 07:50 Urine Color Light-yellow (Yellow) Urine Clarity Clear (Clear) Urine pH 6.0 (5.0-9.0) Urine Specific [place] 1.007 (1.001-1.035) Urine Protein 1+ (Negative) H Urine Ketones Negative (Negative) Urine Blood 1+ /uL (Negative) H Urine Nitrite Negative (Negative) Urine Bilirubin Negative (Negative) Urine Urobilinogen Normal mg/dL (Negative) Urine Leukocyte Esterase 3+ /uL (Negative) Urine RBC 10 /hpf (0 - 4) Urine WBC 29 /hpf (0 - 5) Urine Squamous Epithelial Cells None seen /hpf (<5) Urine Bacteria None seen /hpf (None Seen) Urine Hyaline Casts Few /lpf (0 - 2) Urine Mucus Few (None Seen) Urine Glucose Normal mg/dL (Normal) Microbiology Microbiology Date/Time Source Procedure Growth Status 08/10/24 17:14 Blood Blood Culture - Final NO GROWTH AFTER 5 DAYS OF INCUBATION. 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 Encouraged the patient to be out of bed and ambulate. Discharge planning Plan discussed with: Patient Date of Service: Aug 22, 2024 Billing Provider: LETICIA PAULA MD Common Visit Codes: [id number] INP/OBS CARE(HIGH) LETICIA PAULA MD Aug 22, 2024 14:11
[2024-08-22 17:00] VITALS: BP 113/47; PULSE 86; RESP 16; TEMP 97.7; O2SAT 99
[2024-08-22 21:00] VITALS: BP 141/62; PULSE 89; RESP 21; TEMP 97.3; O2SAT 100
[2024-08-23 01:00] VITALS: BP 148/74; PULSE 87; RESP 18; TEMP 98.4; O2SAT 100
[2024-08-23 05:00] VITALS: BP 114/63; PULSE 92; RESP 20; TEMP 98.1; O2SAT 99
[2024-08-23 08:20] VITALS: O2SAT 99
[2024-08-23 09:00] VITALS: BP 136/66; PULSE 79; RESP 19; TEMP 98; O2SAT 99
[2024-08-23 13:30] VITALS: BP 144/73; PULSE 73; RESP 18; TEMP 98.1; O2SAT 94
--- NOTE | 2024-08-23 13:44 | DVHPN2 ---
Subjective The patient is seen and examined at bedside. Still complaint of flank pain. No nausea or vomiting. Reviewed: Care Plan, H&P, Labs, Medications, Previous Orders, Radiology, Other (Consultation) Changes from previous H/P or p: No Changes Objective Vitals Vital Signs Date Time Temp Pulse Resp B/P (MAP) Pulse Ox O2 Delivery O2 Flow Rate FiO2 08/23/24 09:45 136/66 08/23/24 09:00 98.0 79 19 99 98.0 08/23/24 08:20 Nasal Cannula* 2 28 Intake/Output Intake and Output 08/23/24 07:00 Intake Total 1435 ml Output Total 1850 ml Balance -415 ml Intake Oral 1435 ml Output Urine Total 1850 ml General Appearance: Alert, Oriented X3, Cooperative, No acute distress HEENT: Atraumatic Lungs: Other (Decreased air entry bilateral) Cardiovascular: Regular rate, Normal S1, Normal S2 Abdomen: Normal bowel sounds, Soft, Other (Left CVA tenderness) Genitourinary: Other (Isaacs's ) Back: Flank Tenderness (Left) Neuro: Normal speech, Cranial nerves 3-12 NL Psych/Mental Status: Mental status NL, Mood NL Medications Current Medications Medications Dose Ordered Sig/Ivett Route Start Time Stop Time Status Last Admin Dose Admin Sodium Chloride 10 ml Q8HR IV 08/10/24 22:00 08/23/24 09:46 10 ML Docusate Sodium 100 mg BIDPRN PRN PO 08/10/24 19:45 08/14/24 11:37 100 MG Acetaminophen 650 mg Q6HP PRN PO 08/10/24 19:45 08/23/24 05:44 650 MG Ondansetron HCl 4 mg Q4HP PRN IV 08/10/24 19:45 08/21/24 15:32 4 MG Amlodipine Besylate 10 mg DAILY PO 08/12/24 10:00 08/23/24 09:45 10 MG Labetalol HCl 10 mg Q4HP PRN IV 08/11/24 16:30 08/22/24 05:28 10 MG Pantoprazole Sodium 40 mg DAILY@0600 PO 08/19/24 06:00 08/23/24 05:44 40 MG Amoxicillin/ Clavulanate Potassium 875 mg Q12HR PO 08/20/24 22:00 08/23/24 09:45 875 MG Apixaban 10 mg BID PO 08/20/24 22:00 08/27/24 21:59 08/23/24 09:45 10 MG Apixaban 5 mg BID PO 08/27/24 22:00 Lisinopril 10 mg DAILY PO 08/21/24 10:00 08/23/24 09:45 10 MG Laboratory Results Laboratory Tests 08/21/24 11:49 Urinalysis Test 08/17/24 07:50 Urine Color Light-yellow (Yellow) Urine Clarity Clear (Clear) Urine pH 6.0 (5.0-9.0) Urine Specific [place] 1.007 (1.001-1.035) Urine Protein 1+ (Negative) H Urine Ketones Negative (Negative) Urine Blood 1+ /uL (Negative) H Urine Nitrite Negative (Negative) Urine Bilirubin Negative (Negative) Urine Urobilinogen Normal mg/dL (Negative) Urine Leukocyte Esterase 3+ /uL (Negative) Urine RBC 10 /hpf (0 - 4) Urine WBC 29 /hpf (0 - 5) Urine Squamous Epithelial Cells None seen /hpf (<5) Urine Bacteria None seen /hpf (None Seen) Urine Hyaline Casts Few /lpf (0 - 2) Urine Mucus Few (None Seen) Urine Glucose Normal mg/dL (Normal) Microbiology Microbiology Date/Time Source Procedure Growth Status 08/10/24 17:14 Blood Blood Culture - Final NO GROWTH AFTER 5 DAYS OF INCUBATION. 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 PT eval and treat. Encouraged the patient to be out of bed and ambulate. Discharge planning Plan discussed with: Patient Date of Service: Aug 23, 2024 Billing Provider: LETICIA PAULA MD Common Visit Codes: [id number] INP/OBS CARE(HIGH) LETICIA PAULA MD Aug 23, 2024 13:44
[2024-08-23 16:30] VITALS: BP 150/60; PULSE 69; RESP 20; TEMP 98.3; O2SAT 95
[2024-08-27] MEDS ORDERED: APIXABAN 5 MG TAB PO SCH (22:00)
== END 2024-08-23 18:55 | DRG 871 ==
LOC: EDBD 12:33 → ER 12:39 → OVERFLOW 19:50 → WEST WING 08-12 02:07
PROVIDERS: ADMIT Internal Medicine; ATTEND Internal Medicine
PROC: 0TC78ZZ Extirpation of Matter from Left Ureter, Via Natural or Artificial Opening Endoscopic (ICD-10-PCS; principal; 2024-08-17 14:40)
DX: A41.51 Sepsis due to Escherichia coli [E. coli] (principal); J18.9 Pneumonia, unspecified organism; N17.0 Acute kidney failure with tubular necrosis; I16.1 Hypertensive emergency; N13.6 Pyonephrosis; I50.42 Chronic combined systolic (congestive) and diastolic (congestive) heart failure; J96.10 Chronic respiratory failure, unspecified whether with hypoxia or hypercapnia; Z68.43 Body mass index [BMI] 50.0-59.9, adult; I82.491 Acute embolism and thrombosis of other specified deep vein of right lower extremity; E66.01 Morbid (severe) obesity due to excess calories; R33.9 Retention of urine, unspecified; I11.0 Hypertensive heart disease with heart failure; D64.9 Anemia, unspecified; M25.461 Effusion, right knee; M17.11 Unilateral primary osteoarthritis, right knee; K80.20 Calculus of gallbladder without cholecystitis without obstruction; Z74.01 Bed confinement status; Z88.5 Allergy status to narcotic agent; Z86.73 Personal history of transient ischemic attack (TIA), and cerebral infarction without residual deficits
CPT/HCPCS: 36415; 71045; 73560; 74018; 74176; 76000; 76705; 76775; 80048; 80053; 81001; 82360; 83036; 83605; 84443; 84484; 85007; 85025; 85027; 85610; 85730; 86803; 86850; 86900; 86901; 87040; 87086; 87088; 87186; 87340; 93005; 93306; 93971; G0378; J1885; J1956; J2185; J2250; J2405; J2470; J2543; J2704; J3490

== ENCOUNTER 2024-09-29 20:41 | Inpatient (IN) | payer MEDICARE, MEDICAID ==
[~2024-09-29] VITALS: Ht 170.2 cm; Wt 153.8 kg
[~2024-09-29 20:41] MED LIST: ACET325T82 PO; APIX2.5T PO; ASCO500T11 PO; ASPI81CH59 PO; CLON0.1T PO; DIPH50CA31 PO; DOCU-94 PO; FERR325T20 PO; FOLI-119 PO; IPRA0.00 IN; LISI20TA56 PO; MIDO5TAB22 PO; MULTTAB75 PO; PANT40TA2 PO; TRAM50TA2 PO
--- NOTE | 2024-09-29 21:02 | ED.PDOC ---
History of Present Illness HPI Comments 79-year-old female with PMHx COPD brought in by EMS presents with a chief complaint of abdominal pain x 5 hours with associated nausea and vomiting. Patient mentions that her pain is localized to her epigastric region, non- radiating, describes as sharp and rates her pain a 7/10 at this time. Patient is on 4L of O2 at home. Patient has epigastric tenderness, is on oxygen, and is tachycardic. No other symptoms or modifying factors present at this time. Chief Complaint: Abdominal Pain Time Seen by MD: 20:58 Reviewed Notes: Medications, Allergies Allergies: Coded Allergies: Codeine (Verified Allergy, Unknown, 08/10/24) Home Meds Reported Medications Ipratropium-Albuterol (Ipratropium [place]/Albut) 1 Neil Neil, 1 NEIL IN Q2HP PRN for SHORTNESS OF BREATH, ML 08/12/24 Docusate Sodium (Colace) 100 Mg Cap, 100 MG PO [id number] PRN for FOR CONSTIPATION, CAP 08/12/24 Clonidine Hydrochloride (Clonidine Hcl) 0.1 Mg Tab, 0.1 MG PO Q4HPRN PRN for SBP>160, TAB 08/12/24 Acetaminophen (Apap) 325 Mg Tab, 2 TAB PO Q6HPRN PRN for TEMP GREATER THAN 100, TAB 08/12/24 Midodrine HCl (Midodrine Hydrochloride) 5 Mg Tab, 5 MG PO Q6HPRN PRN for HYPOTENSION, TAB 08/12/24 Tramadol Hcl (Tramadol Hcl) 50 Mg Tab, 50 MG PO Q6HPRN PRN for SEVERE PAIN, TAB 08/12/24 Lisinopril (Lisinopril) 20 Mg Tab, 10 MG PO DAILY, TAB 08/12/24 Pantoprazole Sodium Sesquihydr (Protonix) 40 Mg Tab, 40 MG PO DAILY, #30 TAB 08/12/24 Multiple Vitamins W/ Minerals (Strovite One) Tab, 1 TAB PO DAILY, TAB 08/12/24 Folic Acid (Folic Acid) 1 Mg Tab, 1 MG PO DAILY, TAB 24 Ferrous Sulfate (Ferosul) 325 Mg Tab, 325 MG PO DAILY, TAB 08/12/24 Apixaban Base (ELIQUIS) 2.5 Mg Tab, 2.5 MG PO BID, TAB 10/23/24 Diphenhydramine Hcl (BANOPHEN) 50 Mg Cap, 50 MG PO DAILY, CAP 08/12/24 Aspirin (Aspirin Low Dose) 81 Mg Chw, 81 MG PO DAILY, TAB.CHEW 08/12/24 Ascorbic Acid (VITAMIN C TABLET) 500 Mg Tb, 500 MG PO DAILY, TAB 08/12/24 Information Source: Patient, Emergency Med Personnel Mode of Arrival: EMS Severity: Moderate Timing: Hours Duration: Since onset Prehospital treatment: None Past Medical History PAST MEDICAL HISTORY: CHF, HTN Surgical History: Unknown CAR SCRUBBER History: Denies all CAR SCRUBBER Hx, Unknown Family History Family History: Unknown Social History Smoker: Non-Smoker Alcohol: Denies ETOH Use Drugs: Denies Drug Use Lives In: Retirement Constitutional: denies: chills, diaphoresis, fatigue, fever, malaise, sweats, weakness, others EENTM: denies: blurred vision, double vision, ear bleeding, ear discharge, ear drainage, ear pain, ear ringing, eye pain, eye redness, hearing loss, mouth pain, mouth swelling, nasal discharge, nose bleeding, nose congestion, nose pain, photophobia, tearing, throat pain, throat swelling, voice changes, others Respiratory: denies: cough, hemoptysis, orthopnea, SOB at rest, shortness of breath, SOB with excertion, stridor, wheezing, others Cardiovascular: denies: chest pain, dizzy spells, diaphoresis, Dyspnea on exertion, edema, irregular heart beat, left arm pain, lightheadedness, palpitations, PND, syncope, others Gastrointestinal: reports: abdominal pain, nausea, vomiting; denies: abdomen distended, blood streaked bowels, constipated, diarrhea, dysphagia, difficulty swallowing, hematemesis, melena, poor appetite, poor fluid intake, rectal bleeding, rectal pain, others Genitourinary: denies: abnormal vagina bleeding, burning, dyspareunia, dysuria, flank pain, frequency, hematuria, incontinence, pain, , vagina discha rge, urgency, others Neurological: denies: dizziness, fainting, headache, left sided numbness, left sided weakness, numbness, paresthesia, pre-existing deficit, right sided numbness, right sided weakness, seizure, speech problems, tingling, tremors, weakness, others Musculoskeletal: denies: back pain, gout, joint pain, joint swelling, muscle pain, muscle stiffness, neck pain, others Integumetry: denies: bruises, change in color, change in hair/nails, dryness, laceration, lesions, lumps, rash, wounds, others Allergic/Immunocompromised: denies: Difficulty Healing, Frequent Infections, Hives, Itching, others Hematologic/Lymphatic: denies: anemia, blood clots, easy bleeding, easy bruising, swollen glands, others Endocrine: denies: excessive hunger, excessive sweating, excessive thirst, excessive urination, flushing, intolerance to cold, intolerance to heat, unexplained weight gain, unexplained weight loss, others Psychiatric: denies: anxiety, bipolar disorder, depression, hopeless, panic disorder, schizophrenia, sleepless, suicidal, others All Other Systems: Reviewed and Negative Physical Exam General Appearance: Obese HEENT: Normal ENT Inspection, Pharynx Normal, TMs Normal Neck: Full Range of Motion, Non-Tender, Normal, Normal Inspection Respiratory: Chest Non-Tender, Lungs Clear, No Accessory Muscle Use, No Respiratory Distress, Normal Breath Sounds Cardiovascular: No Edema, No JVD, No Murmur, No Gallop, Normal Peripheral Pulses, Tachycardia Breast Exam: Deferred Gastrointestinal: Epigastric, No Organomegaly, No Pulsatile Mass, Normal Bowel Sounds, Tenderness Genitalia: Deferred Pelvic: Deferred Rectal: Deferred Extremities: No calf tenderness, Normal capillary refill, Normal inspection, Normal range of motion, Non-tender, No pedal edema 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 Was a procedure done?: No Differential Dx Considerations may include: Pneumonia, urinary tract infection, colitis, X-Ray, Labs, Meds, VS Vital Signs Date Time Temp Pulse Resp B/P (MAP) Pulse Ox O2 Delivery O2 Flow Rate FiO2 09/30/24 00:42 106 20 142/89 09/30/24 00:12 116 12 202/113 09/30/24 00:00 108 09/29/24 20:53 111 09/29/24 20:48 98.8 110 14 194/123 (146) 100 Lab Test 09/30/24 03:09/30/24 00:20 Range/Units Urine Color Light-brown Yellow Urine Clarity Ex.turbid Clear Urine pH 6.5 5.0-9.0 Urine Specific [place] 1.025 1.001-1.035 Urine Protein 2+ H Negative Urine Ketones Negative Negative Urine Blood 2+ H Negative /uL Urine Nitrite Negative Negative Urine Bilirubin Negative Negative Urine Urobilinogen Normal Negative mg/dL Urine Leukocyte Esterase 3+ Negative /uL Urine RBC 78 0 - 4 /hpf Urine WBC 2125 0 - 5 /hpf Urine WBC Clumps Present None Seen /hpf Urine Squamous Epithelial Cells Few <5 /hpf Urine Bacteria None seen None Seen /hpf Urine Mucus Few None Seen Urine Glucose Normal Normal mg/dL White Blood Count 14.1 H 4.4-10.8 10^3/uL Red Blood Count 4.10 4.0-5.20 10^6/uL Hemoglobin 10.5 L 12.2-16.2 g/dL Hematocrit 32.6 L 36.0-46.0 % Mean Corpuscular Volume 79.5 L 80.0-100.0 fL Mean Corpuscular Hemoglobin 25.5 L 28.0-32.0 pg Mean Corpuscular Hemoglobin Concent 32.1 32.0-36.0 g/dL Red Cell Distribution Width 17.8 H 11.8-14.3 % Platelet Count 419 140-450 10^3/uL Mean Platelet Volume 8.2 6.9-10.8 fL Neutrophils (%) (Auto) 86.5 H 37.0-80.0 % Lymphocytes (%) (Auto) 7.4 L 10.0-50.0 % Monocytes (%) (Auto) 5.5 0.0-12.0 % Eosinophils (%) (Auto) 0.1 0.0-7.0 % Basophils (%) (Auto) 0.5 0.0-2.0 % Neutrophils # (Auto) 12.2 H 1.6-8.6 10 ^3/uL Lymphocytes # (Auto) 1.0 0.4-5.4 10 ^3/uL Monocytes # (Auto) 0.8 0-1.3 10 ^3/uL Eosinophils # (Auto) 0 0-0.8 10 ^3/uL Basophils # (Auto) 0.1 0-0.2 10 ^3/uL Nucleated Red Blood Cells 0.1 % Sodium Level 142 136-145 mmol/L Potassium Level 4.3 3.5-5.1 mmol/L Chloride Level 103 98-107 mmol/L Carbon Dioxide Level 29 20-31 mmol/L Anion Gap 10 5-15 Blood Urea Nitrogen 14 9-23 mg/dL Creatinine 0.78 0.550-1.02 mg/dL Glomerular Filtration Rate Calc 78 >90 mL/min BUN/Creatinine Ratio 17.9 10.0-20.0 Serum Glucose 112 H 74-106 mg/dL Lactic Acid Level 1.4 0.4-2.0 mmol/L Calcium Level 10.0 8.7-10.4 mg/dL Total Bilirubin 0.2 0.2-1.0 mg/dL Aspartate Amino Transferase (AST) 9 L 13-40 U/L Alanine Aminotransferase (ALT) 9 7-40 U/L Alkaline Phosphatase 93 46-116 U/L Total Protein 8.4 H 5.7-8.2 g/dL Albumin 3.8 3.2-4.8 g/dL Current Medications Medications (Trade) Dose Ordered Sig/Ivett Route Start Time Stop Time Status Last Admin Ondansetron HCl (Zofran) 4 mg ONCE ONCE IV 09/29/24 21:00 09/29/24 21:01 DC 09/30/24 00:11 Sodium Chloride 1,000 ml @ 1,000 mls/hr Q1H ONCE IV 09/29/24 21:00 09/29/24 21:59 DC 09/30/24 01:25 Morphine Sulfate 4 mg ONCE ONCE IV 09/29/24 21:00 09/29/24 21:01 DC 09/30/24 00:12 Time of 1ST Reevaluation: 21:28 Reevaluation 1ST: Unchanged Patient Education/Counseling: Diagnosis, Treatment, Prognosis Family Education/Counseling: No Family Present Departure 1 Departure Time of Disposition: 04:12 (Patient presented with abdominal pain that was concerning for possible appendicits, gastritis, cholecystitis, colitis, gastroenteritis, sbo, or orther possible surgical emergency. Data: 1. I ordered and reviewed the result of at least 3 labs including a CBC, BMP, and Urinalysis. 2. I independently interpreted the following tests: CT Abdoment and Pelvis is concerning for colitis and cystitis .Risk:This patient has a high risk of morbidity due to further diagnostic testing or treatment and may suffer from an acute abdominal process disorder. Workup reveals cystitis and patient should be admitted for further workup. and possible expert consultation. ) Impression: Primary Impression: Urinary tract infection Qualified Codes: N30.01 - Acute cystitis with hematuria Additional Impressions: Abdominal pain Qualified Codes: R10.84 - Generalized abdominal pain Projectile vomiting Qualified Codes: R11.12 - Projectile vomiting Dyspnea Qualified Codes: R06.02 - Shortness of breath Disposition: ADMITTED INPATIENT Admit to: Med Surg Condition: Serious Critical Care Note Critical Care Time?: Yes Critical care comment: Intractable abdominal pain Authorized and Performed by: Suzanne Doty MD Total critical care time: Approximately 38 minutes Due to a high probability of clinically significant, life threatening deterioration, the patient required my highest level of preparedness to intervene emergently and I personally spent this critical care time directly and personally managing the patient. This critical care time included obtaining a history; examining the patient; pulse oximetry; ordering and review of studies; arranging urgent treatment with development of a management plan; evaluation of patient's response to treatment; frequent reassessment; and, discussions with other providers. This critical care time was performed to assess and manage the high probability of imminent, life-threatening deterioration that could result in multi-organ failure. It was exclusive of separately billable procedures and treating other patients and teaching time. Please see my other sections and the rest of the note for further information on patient assessment and treatment. Stability Stability form required: No I personally scribed for SUZANNE DOTY MD ([email or web address]) on 09/29/24 at 21:02. Electronically submitted by Chandana Kelsey ([email or web address]). SUZANNE DOTY MD Sep 29, 2024 21:02
[2024-09-29 22:29] VITALS: PULSE 111; RESP 22; O2SAT 100
[2024-09-29] MEDS: IOHEXOL 300 MG/ML 100ML BOTTLE IJ ONE (23:44)
[2024-09-30] MEDS: ONDANSETRON HCL 4 MG/2 ML VIAL IV ONE (00:11)
[2024-09-30] MEDS: MORPHINE SULFATE 4 MG/ML SYR/VIAL IV ONE (00:12)
[2024-09-30 00:51] LABS: Basophils # (auto) 0.1 10 ^3/uL (0-0.2); Basophils % (auto) 0.5 % (0.0-2.0); Eosinophils # (auto) 0 10 ^3/uL (0-0.8); Eosinophils % (auto) 0.1 % (0.0-7.0); Hematocrit 32.6 % (36.0-46.0); Hemoglobin 10.5 g/dL (12.2-16.2); Lymphocytes % (auto) 7.4 % (10.0-50.0); Mean Corpuscular Hemoglobin 25.5 pg (28.0-32.0); Mean Corpuscular Hgb Conc. 32.1 g/dL (32.0-36.0); Mean Corpuscular Volume 79.5 fL (80.0-100.0); Monocytes # (auto) 0.8 10 ^3/uL (0-1.3); Monocytes % (auto) 5.5 % (0.0-12.0); Neutrophils # (auto) 12.2 10 ^3/uL (1.6-8.6); Neutrophils % (auto) 86.5 % (37.0-80.0); Nucleated Red Blood Cells % 0.1 %; Platelet Count (auto) 419 10^3/uL (140-450); Red Cell Distribution Width 17.8 % (11.8-14.3); White Blood Cell 14.1 10^3/uL (4.4-10.8)
[2024-09-30 01:21] LABS: Albumin 3.8 g/dL (3.2-4.8); Alkaline Phosphatase 93 U/L (46-116); Anion Gap 10 (5-15); BUN/Creatinine Ratio 17.9 (10.0-20.0); Blood Urea Nitrogen 14 mg/dL (9-23); Carbon Dioxide 29 mmol/L (20-31); Chloride 103 mmol/L (98-107); Potassium 4.3 mmol/L (3.5-5.1); Sodium 142 mmol/L (136-145)
[2024-09-30 01:22] LABS: Bilirubin, Total 0.2 mg/dL (0.2-1.0)
[2024-09-30] MEDS: SODIUM CHLORIDE 0.9% 1,000 ML IV ONE ×2 (01:25→08:01)
[2024-09-30 01:27] LABS: Alanine Aminotransferase 9 U/L (7-40); Aspartate Aminotransferase 9 U/L (13-40); Glucose 112 mg/dL (74-106)
[2024-09-30 01:28] LABS: Total Protein 8.4 g/dL (5.7-8.2)
[2024-09-30 03:24] LABS: Urine Bacteria None Seen /hpf (None Seen)
[2024-09-30 03:33] LABS: Urine Blood 2+ /uL (Negative); Urine Clarity Ex.Turbid (Clear); Urine Color Light-Brown (Yellow); Urine Mucus FEW (None Seen); Urine Protein, UAD 2+ (Negative); Urine Specific Gravity 1.025 (1.001-1.035); Urine Urobilinogen Normal (Negative); Urine WBC 2125 /hpf (0 - 5); Urine WBC Clumps PRESENT /hpf (None Seen); Urine pH 6.5 (5.0-9.0)
--- NOTE | 2024-09-30 03:46 | DVH ---
Examination: CXRP Clinical Indication: abdominal pain Comparison: None. Technique: Frontal radiograph of the chest was obtained. Findings: Moderate cardiomegaly with bilateral hilar congestion. Subtle blunting of the bilateral co stophrenic angle suggestive mild bilateral pleural effusion left more than right. No evidence of pne umothorax. No acute osseous abnormality is seen. Impression: 1. Moderate cardiomegaly with bilateral hilar congestion. 2. Subtle blunting of the bilateral costophrenic angle suggestive mild bilateral pleural effusion le ft more than right. Electronically Signed 09/30/2024 03:44 Tabatha Mcarthur
--- NOTE | 2024-09-30 03:50 | DVH ---
Examination: ABPLIV CLINICAL INDICATION: abdominal pain COMPARISON: None. CONTRAST USED: Intravenous. TECHNIQUE: A post-contrast CT study of the abdomen and pelvis was performed after administration of i ntravenous contrast medium. The examination was performed with [address] scan done accordi ng to ALARA (As Low as Reasonably Achievable). Multiplanar reconstructions were obtained. FINDINGS: CT ABDOMEN: Lung Base: Subsegmental atelectasis in the bilateral lower lobes with a linear fibrotic band. No foca l infiltrates, pleural effusion, or pneumothorax. Liver: Mild hepatomegaly with heterogeneous coarse attenuation, widening of the interlobar fissures, and caudate lobe hypertrophy. Findings are suggestive of probable liver parenchymal disease. Gallbladder: Distended gallbladder measuring 9.8 cm in length and 5.2 cm in the anteroposterior dimen savi. No evidence of radiopaque calculus, wall thickening, or features of acute cholecystitis. Pancreas: Normal in size and shape. No focal lesion or abnormality in the peripancreatic fat planes. Spleen: Normal in size with no focal abnormality. Kidneys: Left Kidney: Mild hydronephrosis and hydroureter with subtle wall thickening and enhancement of the l eft mid and distal ureter, raising the possibility of pyelonephritis. No evidence of renal or ureteri c calculus. Moderate left perinephric fat stranding. Right Kidney: Normal in size, shape, and position. Few right renal parapelvic cysts are noted. Retroperitoneum: Bilateral adrenal glands are unremarkable. No significant retroperitoneal lymphadeno panchito. Vessels: The aorta, IVC, and mesenteric vessels appear unremarkable. Scattered atherosclerotic calcif ications in the infrarenal aorta, common iliac arteries, and at the origin of the bilateral renal art eries. Stomach and Bowel: Moderate fecal residue in the cecum, ascending, and transverse colon. Scattered di verticulosis of the distal descending and sigmoid colon without evidence of diverticulitis. Omental fat-containing umbilical hernia measuring 14 x 8 mm. Skeletal System: Mild osteopenia and degenerative changes in the bilateral sacroiliac joints and supe rolateral edges of the hip joints. Multilevel severe degenerative facet arthropathy in the lumbar spine. Minimal anterolisthesis of L4 o cat L5. Prominent disc-osteophyte complex bulges at the L4-L5 and L5-S1 levels with [id number] narrow ing of the neural foramina at these levels. No acute osseous abnormality. CT PELVIS: Appendix: Visualized and appears unremarkable. Colon: Moderate fecal residue with scattered diverticulosis in the distal descending and sigmoid colo n. No evidence of diverticulitis. Bladder: Normally distended with no intraluminal pathology. Post Hysterectomy Status: Uterus is not visualized. Ovaries appear unremarkable, with no adnexal mass or pelvic lymphadenopathy. Pelvis: Diffuse fat stranding is noted in the pelvis. No abnormal fluid collection is seen. IMPRESSION: 1. Mild hepatomegaly with heterogeneous coarse attenuation, interlobar fissure widening, and caudate lobe hypertrophy, suggestive of liver parenchymal disease. 2. Distended gallbladder without evidence of calculi, wall thickening, or acute cholecystitis. 3. Mild left hydronephrosis and hydroureter with subtle left mid and distal ureter wall thickening a nd enhancement, suggesting possible pyelonephritis. Moderate left perinephric fat stranding. 4. Scattered diverticulosis in the distal descending and sigmoid colon without evidence of diverticu litis. 5. Omental fat-containing umbilical hernia (14 x 8 mm). 6. Multilevel severe lumbar spine degenerative changes with L4-L5 minimal anterolisthesis, disc-oste ophyte bulges, and [id number] neural foraminal narrowing at L4-L5 and L5-S1. 7. Mild cardiomegaly with no pericardial effusion. 8. Subsegmental atelectasis in the bilateral lower lobes with a linear fibrotic band. 9. Post-hysterectomy status with unremarkable adnexa and no pelvic lymphadenopathy. Electronically Signed 09/30/2024 03:49 Tabatha Mcarthur
[2024-09-30] MEDS ORDERED: HYDROcodone-ACET 5/325MG TAB PO PRN (04:30)
--- NOTE | 2024-09-30 05:04 | DVHHP2 ---
Review of Systems Allergies: Coded Allergies: Codeine (Verified Allergy, Unknown, 08/10/24) Medications Current Medications Medications Dose Ordered Sig/Ivett Route Start Time Stop Time Status Last Admin Dose Admin Lisinopril 10 mg DAILY PO 09/30/24 10:00 Aspirin 81 mg DAILY PO 09/30/24 10:00 Pantoprazole Sodium 40 mg DAILY@0600 PO 09/30/24 06:00 Apixaban 2.5 mg BID PO 09/30/24 10:00 Ceftriaxone Sodium 50 ml @ 100 mls/hr DAILY@09 IV 09/30/24 09:00 Acetaminophen/ Hydrocodone Bitart 1 tab Q4HP PRN PO 09/30/24 04:30 Ondansetron HCl 4 mg Q4HP PRN IV 09/30/24 04:30 Acetaminophen 650 mg Q6HP PRN PO 09/30/24 04:30 Exam Vital Signs Vital Signs Date Time Temp Pulse Resp B/P (MAP) Pulse Ox O2 Delivery O2 Flow Rate FiO2 09/30/24 00:42 106 20 142/89 09/29/24 20:48 98.8 100 Labs/Xrays Labs Test 09/30/24 03:20 09/30/24 00:20 Range/Units Urine Color Light-brown Yellow Urine Clarity Ex.turbid Clear Urine pH 6.5 5.0-9.0 Urine Specific [place] 1.025 1.001-1.035 Urine Protein 2+ H Negative Urine Ketones Negative Negative Urine Blood 2+ H Negative /uL Urine Nitrite Negative Negative Urine Bilirubin Negative Negative Urine Urobilinogen Normal Negative mg/dL Urine Leukocyte Esterase 3+ Negative /uL Urine RBC 78 0 - 4 /hpf Urine WBC 2125 0 - 5 /hpf Urine WBC Clumps Present None Seen /hpf Urine Squamous Epithelial Cells Few <5 /hpf Urine Bacteria None seen None Seen /hpf Urine Mucus Few None Seen Urine Glucose Normal Normal mg/dL White Blood Count 14.1 H 4.4-10.8 10^3/uL Red Blood Count 4.10 4.0-5.20 10^6/uL Hemoglobin 10.5 L 12.2-16.2 g/dL Hematocrit 32.6 L 36.0-46.0 % Mean Corpuscular Volume 79.5 L 80.0-100.0 fL Mean Corpuscular Hemoglobin 25.5 L 28.0-32.0 pg Mean Corpuscular Hemoglobin Concent 32.1 32.0-36.0 g/dL Red Cell Distribution Width 17.8 H 11.8-14.3 % Platelet Count 419 140-450 10^3/uL Mean Platelet Volume 8.2 6.9-10.8 fL Neutrophils (%) (Auto) 86.5 H 37.0-80.0 % Lymphocytes (%) (Auto) 7.4 L 10.0-50.0 % Monocytes (%) (Auto) 5.5 0.0-12.0 % Eosinophils (%) (Auto) 0.1 0.0-7.0 % Basophils (%) (Auto) 0.5 0.0-2.0 % Neutrophils # (Auto) 12.2 H 1.6-8.6 10 ^3/uL Lymphocytes # (Auto) 1.0 0.4-5.4 10 ^3/uL Monocytes # (Auto) 0.8 0-1.3 10 ^3/uL Eosinophils # (Auto) 0 0-0.8 10 ^3/uL Basophils # (Auto) 0.1 0-0.2 10 ^3/uL Nucleated Red Blood Cells 0.1 % Sodium Level 142 136-145 mmol/L Potassium Level 4.3 3.5-5.1 mmol/L Chloride Level 103 98-107 mmol/L Carbon Dioxide Level 29 20-31 mmol/L Anion Gap 10 5-15 Blood Urea Nitrogen 14 9-23 mg/dL Creatinine 0.78 0.550-1.02 mg/dL Glomerular Filtration Rate Calc 78 >90 mL/min BUN/Creatinine Ratio 17.9 10.0-20.0 Serum Glucose 112 H 74-106 mg/dL Lactic Acid Level 1.4 0.4-2.0 mmol/L Calcium Level 10.0 8.7-10.4 mg/dL Total Bilirubin 0.2 0.2-1.0 mg/dL Aspartate Amino Transferase (AST) 9 L 13-40 U/L Alanine Aminotransferase (ALT) 9 7-40 U/L Alkaline Phosphatase 93 46-116 U/L B-Type Natriuretic Peptide 167.69 0-100 pg/mL Total Protein 8.4 H 5.7-8.2 g/dL Albumin 3.8 3.2-4.8 g/dL Assessment/Plan My Orders Orders - SRINIVASA LEWIS Procedure Category Date Status Time Lisinopril Tablet PHA 09/30/24 In Process (Zestril Tablet) 10:00 Aspirin Tablet PHA 09/30/24 In Process 10:00 Pantoprazole Tablet PHA 09/30/24 In Process (Protonix Tablet) 06:00 Apixaban (Eliquis) PHA 09/30/24 In Process 10:00 Ceftriaxone 1gm/50ml PHA 09/30/24 In Process D5w (Rocephin) 09:00 Basic Metabolic Panel LAB 10/01/24 Verified 04:00 Admit ADMIT 09/30/24 Transmitted 04:19 Hydrocodone-Acet PHA 09/30/24 In Process 5/325mg Tab (Olden 04:30 Ondansetron Hcl PHA 09/30/24 In Process (Zofran) 04:30 Complete Blood Count LAB 10/01/24 Verified 04:00 Condition: Stable FIDE 09/30/24 In Process 04:19 Acetaminophen Tablet PHA 09/30/24 In Process (Tylenol Tablet) 04:30 Bedrest With Bathroom FIDE 09/30/24 In Process Privileg 04:19 Clear Liq Diet DIET 09/30/24 Transmitted Breakfast SRINIVASA LEWIS Sep 30, 2024 05:04
[2024-09-30] MEDS: CEFEPIME 2GM/50ML NS 50 ML IV ONE (05:16)
[2024-09-30] MEDS: PANTOPRAZOLE 40 MG TAB PO SCH (06:04)
--- NOTE | 2024-09-30 06:44 | ECG ---
[facility] Test Date: 2024-09-29 Test Time: 20:53:34 Pat Name: KAIN POLLOCK Department: ED Room: 0220 Gender: F Director Trust: FRANCINE : 1945 Requested By: SUZANNE STEVENSON Order Number: [id number] Reading MD: Estuardo Read Measurements Intervals [place] Rate: 111 P: -60 KS: 95 QRS: -66 QRSD: 145 T: 41 QT: 375 QTc: 510 Interpretive Statements Ectopic atrial tachycardia, unifocal Multiple ventricular premature complexes RBBB and LAFB Left ventricular hypertrophy Electronically Signed On 10-02-2024 12:40:33 PST by Estuardo Read Please click the below link to view image of tracing.
[2024-09-30 08:20] VITALS: PULSE 133; RESP 16; O2SAT 100
--- NOTE | 2024-09-30 10:13 | ECG ---
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
[2024-09-30] MEDS: cefTRIAXone 1GM/50ML D5W 50 ML IV SCH (10:49)
[2024-09-30] MEDS: LISINOPRIL 5 MG TAB PO SCH (10:51)
[2024-09-30] MEDS: ASPirin 81 mg TAB PO SCH (10:51)
[2024-09-30] MEDS: APIXABAN 2.5 MG TAB PO SCH (10:51)
--- NOTE | 2024-09-30 14:05 | DVHPN2 ---
Assessment/Plan Assessment/Plan Progress note Subjective 79-year-old female living in for most admitted for pyelonephritis. My exam patient was septic, tachycardic, received antibiotics. Patient was not fluid overloaded so we initiate 30 cc per kg of fluid bolus Objective Physical exam Alert, oriented x3 PERRLA Morbidly obese Distant heart sounds Distant lung sounds, no crackles Abdomen soft nontender, no organomegaly Moving all four extremities Trace extremity edema Lab Bicarb 29 WBC 14 Hemoglobin 10 Positive UA Imaging Chest x-ray clear CT abdomen concerning of left pyelonephritis, bilateral atelectasis Assessment and plan Sepsis secondary to UTI Pyelonephritis Morbid obesity Hypertension Pulmonary hypertension Likely obesity hypoventilation syndrome Bed-bound Empiric ceftriaxone Urine culture IV fluid bolus Watch respiratory status, if increasing oxygen requirements we will start Lasix Resume home meds Advance diet as tolerated Replete electrolytes Diet clear liquid DVT prophylaxis Lovenox Plan discussed with: Patient Date of Service: Sep 30, 2024 Billing Provider: ARNAUD CASTRO MD Common Visit Codes: [id number] INP/OBS CARE(HIGH) ARNAUD CASTRO MD Sep 30, 2024 14:05
[2024-09-30 14:10] VITALS: BP 128/80; PULSE 107; RESP 18; TEMP 98.1; O2SAT 95
[2024-09-30 14:28] VITALS: BP 128/80; PULSE 107; RESP 20; TEMP 98.1; O2SAT 95
[2024-09-30] MEDS: MAALOX PLUS or MAALOX 30 ML PO SCH (15:38)
[2024-09-30] MEDS ORDERED: SODIUM CHLORIDE 0.9% 1,000 ML IV ONE (15:45)
[2024-09-30] MEDS: SODIUM CHLORIDE 0.9% 500 ML IV ONE (16:22)
[2024-09-30 16:42] VITALS: BP 176/97; PULSE 110; RESP 19; TEMP 98.4; O2SAT 95
[2024-09-30 20:00] VITALS: PULSE 120
[2024-09-30 21:00] VITALS: BP 147/68; PULSE 125; RESP 22; TEMP 99.9; O2SAT 98
[2024-09-30] MEDS: ACETAMINOPHEN 325 MG TAB PO PRN (21:28)
[2024-10-01] VITALS (7 sets, daily range): BP systolic 96–148; BP diastolic 57–74; PULSE 80–117; RESP 17–20; TEMP 98.3–99.1; O2SAT 96–100
[2024-10-01 07:15] LABS: Chloride 105 mmol/L (98-107); Potassium 3.8 mmol/L (3.5-5.1); Sodium 139 mmol/L (136-145)
[2024-10-01 07:16] LABS: Anion Gap 4 (5-15); Calcium 8.9 mg/dL (8.7-10.4); Carbon Dioxide 30 mmol/L (20-31)
[2024-10-01 07:17] LABS: Basophils # (auto) 0.1 10 ^3/uL (0-0.2); Basophils % (auto) 1.1 % (0.0-2.0); Eosinophils # (auto) 0.2 10 ^3/uL (0-0.8); Eosinophils % (auto) 1.6 % (0.0-7.0); Hematocrit 27.4 % (36.0-46.0); Hemoglobin 8.7 g/dL (12.2-16.2); Lymphocytes # (auto) 1.5 10 ^3/uL (0.4-5.4); Lymphocytes % (auto) 12.7 % (10.0-50.0); Mean Corpuscular Hemoglobin 25.4 pg (28.0-32.0); Mean Corpuscular Hgb Conc. 31.7 g/dL (32.0-36.0); Mean Corpuscular Volume 80.3 fL (80.0-100.0); Monocytes # (auto) 1.1 10 ^3/uL (0-1.3); Monocytes % (auto) 9.7 % (0.0-12.0); Neutrophils # (auto) 8.7 10 ^3/uL (1.6-8.6); Neutrophils % (auto) 74.9 % (37.0-80.0); Nucleated Red Blood Cells % 0.2 %; Platelet Count (auto) 340 10^3/uL (140-450); Red Blood Cells 3.41 10^6/uL (4.0-5.20); Red Cell Distribution Width 18.1 % (11.8-14.3); White Blood Cell 11.6 10^3/uL (4.4-10.8)
[2024-10-01 07:21] LABS: Blood Urea Nitrogen 12 mg/dL (9-23)
[2024-10-01 07:25] LABS: Glucose 113 mg/dL (74-106)
--- NOTE | 2024-10-01 13:43 | DVHPN2 ---
Assessment/Plan Assessment/Plan Progress note Subjective 79-year-old female living in for most admitted for pyelonephritis. My exam patient was septic, tachycardic, received antibiotics. Patient was not fluid overloaded so we initiate 30 cc per kg of fluid bolus Seen during rounds today Improving, no complaints. downgrade to medsur Objective Physical exam Alert, oriented x3 PERRLA Morbidly obese Distant heart sounds Distant lung sounds, no crackles Abdomen soft nontender, no organomegaly Moving all four extremities Trace extremity edema Lab Bicarb 29 WBC 14 Hemoglobin 10 Positive UA Imaging Chest x-ray clear CT abdomen concerning of left pyelonephritis, bilateral atelectasis Assessment and plan Sepsis secondary to UTI Pyelonephritis Morbid obesity Hypertension Pulmonary hypertension Likely obesity hypoventilation syndrome Bed-bound Empiric ceftriaxone Urine culture IV fluid bolus Watch respiratory status, if increasing oxygen requirements we will start Lasix Resume home meds Advance diet as tolerated bipap at night Replete electrolytes Diet mechanical soft DVT prophylaxis Lovenox Plan discussed with: Patient My Orders Orders - ARNAUD CASTRO MD Procedure Category Date Status Time Alum & Mag PHA 09/30/24 In Process Hydrox-Simethicone 14:15 * Wound Consult CONS 10/01/24 Transmitted * Dietary Consult CONS 10/01/24 Transmitted 10:10 Date of Service: Oct 01, 2024 Billing Provider: ARNAUD CASTRO MD Common Visit Codes: [id number] INP/OBS CARE(HIGH) ARNAUD CASTRO MD Oct 01, 2024 13:43
[2024-10-01] MEDS ORDERED: POLYETHYLENE GLYCOL 17 GM PWDR PO PRN (13:45)
[2024-10-02] VITALS: BP 145/61; PULSE 94; RESP 18; TEMP 98.3; O2SAT 98
[2024-10-02 05:00] VITALS: BP 136/64; PULSE 91; RESP 20; TEMP 98.7; O2SAT 99
[2024-10-02 06:48] LABS: Basophils # (auto) 0.1 10 ^3/uL (0-0.2); Basophils % (auto) 0.9 % (0.0-2.0); Eosinophils # (auto) 0.3 10 ^3/uL (0-0.8); Hemoglobin 8.5 g/dL (12.2-16.2); Lymphocytes # (auto) 1.4 10 ^3/uL (0.4-5.4); Monocytes # (auto) 0.7 10 ^3/uL (0-1.3); Nucleated Red Blood Cells % 0.1 %
[2024-10-02 06:50] LABS: Eosinophils % (auto) 4.4 % (0.0-7.0); Hematocrit 27.1 % (36.0-46.0); Lymphocytes % (auto) 17.8 % (10.0-50.0); Mean Corpuscular Hemoglobin 25.6 pg (28.0-32.0); Mean Corpuscular Hgb Conc. 31.2 g/dL (32.0-36.0); Mean Corpuscular Volume 82.2 fL (80.0-100.0); Monocytes % (auto) 8.8 % (0.0-12.0); Neutrophils # (auto) 5.3 10 ^3/uL (1.6-8.6); Neutrophils % (auto) 68.1 % (37.0-80.0); Platelet Count (auto) 334 10^3/uL (140-450); White Blood Cell 7.8 10^3/uL (4.4-10.8)
[2024-10-02 06:51] LABS: Chloride 104 mmol/L (98-107); Potassium 3.7 mmol/L (3.5-5.1); Sodium 141 mmol/L (136-145)
[2024-10-02 06:53] LABS: Anion Gap 7 (5-15); Carbon Dioxide 30 mmol/L (20-31)
[2024-10-02 06:58] LABS: BUN/Creatinine Ratio 13.6 (10.0-20.0); Blood Urea Nitrogen 9 mg/dL (9-23)
[2024-10-02 07:00] LABS: Glucose 111 mg/dL (74-106)
[2024-10-02 09:15] VITALS: BP 130/61; PULSE 88; RESP 20; TEMP 97.5; O2SAT 98
--- NOTE | 2024-10-02 12:50 | DVHPN2 ---
Assessment/Plan Assessment/Plan Progress note Subjective 79-year-old female living in for most admitted for pyelonephritis. My exam patient was septic, tachycardic, received antibiotics. Patient was not fluid overloaded so we initiate 30 cc per kg of fluid bolus Seen during rounds today Further improvement, cultures pending. Objective Physical exam Alert, oriented x3 PERRLA Morbidly obese Distant heart sounds Distant lung sounds, no crackles Abdomen soft nontender, no organomegaly Moving all four extremities Trace extremity edema Lab Bicarb 29 WBC 14 Hemoglobin 10 Positive UA Imaging Chest x-ray clear CT abdomen concerning of left pyelonephritis, bilateral atelectasis Assessment and plan Sepsis secondary to UTI Pyelonephritis Morbid obesity Hypertension Pulmonary hypertension Likely obesity hypoventilation syndrome Bed-bound Empiric ceftriaxone Urine culture IV fluid bolus Watch respiratory status, if increasing oxygen requirements we will start Lasix Resume home meds Advance diet as tolerated bipap at night Replete electrolytes Diet mechanical soft DVT prophylaxis Lovenox Plan discussed with: Patient My Orders Orders - ARNAUD CASTRO MD Procedure Category Date Status Time Transfer Orders XFER 10/01/24 Transmitted 13:39 Discontinue Tele FIDE 10/01/24 In Process 13:39 Polyethylene Glycol PHA 10/01/24 In Process 17g Powder (Miralax 13:45 Mechanical Soft Diet DIET 10/01/24 Transmitted Dinner Date of Service: Oct 02, 2024 Billing Provider: ARNAUD CASTRO MD Common Visit Codes: [id number] INP/OBS CARE(HIGH) ARNAUD CASTRO MD Oct 02, 2024 12:50
[2024-10-02 17:00] VITALS: BP 145/78; PULSE 95; RESP 18; TEMP 98.2; O2SAT 99
[2024-10-02 20:00] VITALS: RESP 16
[2024-10-02 21:00] VITALS: BP 140/74; PULSE 90; RESP 20; TEMP 98.6; O2SAT 98
[2024-10-03 01:00] VITALS: BP 138/70; PULSE 88; RESP 18; TEMP 98.8; O2SAT 96
[2024-10-03 05:00] VITALS: BP 161/68; PULSE 84; RESP 18; TEMP 98.2; O2SAT 99
[2024-10-03 09:14] VITALS: BP 141/85; PULSE 89; RESP 19; TEMP 98.7; O2SAT 100
[2024-10-03] MEDS ORDERED: CEFP200T15 PO (10:08)
--- NOTE | 2024-10-03 13:25 | DVHPN2 ---
Assessment/Plan Assessment/Plan Progress note Subjective 79-year-old female living in for most admitted for pyelonephritis. My exam patient was septic, tachycardic, received antibiotics. Patient was not fluid overloaded so we initiate 30 cc per kg of fluid bolus Seen during rounds today NAEON Objective Physical exam Alert, oriented x3 PERRLA Morbidly obese Distant heart sounds Distant lung sounds, no crackles Abdomen soft nontender, no organomegaly Moving all four extremities Trace extremity edema Lab Bicarb 29 WBC 14 Hemoglobin 10 Positive UA Imaging Chest x-ray clear CT abdomen concerning of left pyelonephritis, bilateral atelectasis Assessment and plan Sepsis secondary to UTI Pyelonephritis Morbid obesity Hypertension Pulmonary hypertension Likely obesity hypoventilation syndrome Bed-bound Empiric ceftriaxone Urine culture IV fluid bolus Watch respiratory status, if increasing oxygen requirements we will start Lasix Resume home meds Advance diet as tolerated bipap at night pending UCX dc zamora Replete electrolytes Diet mechanical soft DVT prophylaxis Lovenox Plan discussed with: Patient My Orders Orders - ARNAUD CASTRO MD Procedure Category Date Status Time Communication Order ORDERS 10/02/24 Transmitted 18:30 * Nurse Extern CONS 10/03/24 Transmitted Consult Date of Service: Oct 03, 2024 Billing Provider: ARNAUD CASTRO MD Common Visit Codes: [id number] INP/OBS CARE(HIGH) ARNAUD CASTRO MD Oct 03, 2024 13:25
[2024-10-03 16:51] VITALS: BP 155/81; PULSE 79; RESP 18; TEMP 98.5; O2SAT 98
[2024-10-03 21:00] VITALS: BP 155/83; PULSE 88; RESP 20; TEMP 98.3; O2SAT 100
[2024-10-03 21:17] VITALS: BP 144/80
[2024-10-04] VITALS (9 sets, daily range): BP systolic 113–159; BP diastolic 54–89; PULSE 83–130; RESP 18–20; TEMP 97.5–98.7; O2SAT 98–100
--- NOTE | 2024-10-04 14:33 | DVHDS2 ---
Discharge Summary Date of Admission Sep 30, 2024 at 04:25 Date of Discharge: Oct 04, 2024 Labs/Diagnostic Data: Laboratory Results Test 10/02/24 06:09 09/30/24 03:20 09/30/24 00:20 White Blood Count 7.8 10^3/uL (4.4-10.8) Red Blood Count 3.30 10^6/uL (4.0-5.20) Hemoglobin 8.5 g/dL (12.2-16.2) Hematocrit 27.1 % (36.0-46.0) Mean Corpuscular Volume 82.2 fL (80.0-100.0) Mean Corpuscular Hemoglobin 25.6 pg (28.0-32.0) Mean Corpuscular Hemoglobin Concent 31.2 g/dL (32.0-36.0) Red Cell Distribution Width 18.0 % (11.8-14.3) Platelet Count 334 10^3/uL (140-450) Mean Platelet Volume 7.9 fL (6.9-10.8) Neutrophils (%) (Auto) 68.1 % (37.0-80.0) Lymphocytes (%) (Auto) 17.8 % (10.0-50.0) Monocytes (%) (Auto) 8.8 % (0.0-12.0) Eosinophils (%) (Auto) 4.4 % (0.0-7.0) Basophils (%) (Auto) 0.9 % (0.0-2.0) Neutrophils # (Auto) 5.3 10 ^3/uL (1.6-8.6) Lymphocytes # (Auto) 1.4 10 ^3/uL (0.4-5.4) Monocytes # (Auto) 0.7 10 ^3/uL (0-1.3) Eosinophils # (Auto) 0.3 10 ^3/uL (0-0.8) Basophils # (Auto) 0.1 10 ^3/uL (0-0.2) Nucleated Red Blood Cells 0.1 % Sodium Level 141 mmol/L (136-145) Potassium Level 3.7 mmol/L (3.5-5.1) Chloride Level 104 mmol/L (98-107) Carbon Dioxide Level 30 mmol/L (20-31) Anion Gap 7 (5-15) Blood Urea Nitrogen 9 mg/dL (9-23) Creatinine 0.66 mg/dL (0.550-1.02) Glomerular Filtration Rate Calc 90 mL/min (>90) BUN/Creatinine Ratio 13.6 (10.0-20.0) Serum Glucose 111 mg/dL (74-106) Calcium Level 9.0 mg/dL (8.7-10.4) Urine Color Light-brown (Yellow) Urine Clarity Ex.turbid (Clear) Urine pH 6.5 (5.0-9.0) Urine Specific [place] 1.025 (1.001-1.035) Urine Protein 2+ (Negative) Urine Ketones Negative (Negative) Urine Blood 2+ /uL (Negative) Urine Nitrite Negative (Negative) Urine Bilirubin Negative (Negative) Urine Urobilinogen Normal mg/dL (Negative) Urine Leukocyte Esterase 3+ /uL (Negative) Urine RBC 78 /hpf (0 - 4) Urine WBC 2125 /hpf (0 - 5) Urine WBC Clumps Present /hpf (None Seen) Urine Squamous Epithelial Cells Few /hpf (<5) Urine Bacteria None seen /hpf (None Seen) Urine Mucus Few (None Seen) Urine Glucose Normal mg/dL (Normal) Lactic Acid Level 1.4 mmol/L (0.4-2.0) Total Bilirubin 0.2 mg/dL (0.2-1.0) Aspartate Amino Transferase (AST) 9 U/L (13-40) Alanine Aminotransferase (ALT) 9 U/L (7-40) Alkaline Phosphatase 93 U/L (46-116) B-Type Natriuretic Peptide 167.69 pg/mL (0-100) Total Protein 8.4 g/dL (5.7-8.2) Albumin 3.8 g/dL (3.2-4.8) Other Laboratory Tests 10/02/24 06:09 Brief Hx & Hospital Course: 79-year-old female admitted for pyelonephritis, found to have a UTI and was started on ceftriaxone with significant improvement. Patient received 5 days of IV antibiotics and we will continue p.o. antibiotics at home. Patient leaving sensitivity inform us. Medication sent to pharmacy, stable to discharge home Condition at Discharge: Good Final Diagnosis/Problems List UTI and pyelonephritis Discharge Disposition: Assisted Living Facility Discharge Instruct/Medications Diet: Cardiac 2g Na,low cholest Activity: No Restrictions, As Tolerated Follow Up/Referral: PCP Medications: cefpodoxime 35 Discharge Statement: "Patient was advised to return to the ER or call 911 if any headaches, dizziness, shortness of breath, chest pain, abdominal pain, bleeding, fevers, or worsening of medical condition. Patient was counseled about treatment plan, medications, possible side effects, patientverbalized understanding. All questions were answered to the best of my ability. This discharge took greater then 30 minutes in planning, reviewing documentation, counseling the patient, and discussing with other team members." ASSESSMENT ASSESSMENT Assessment Sepsis secondary to UTI Pyelonephritis Morbid obesity Hypertension Pulmonary hypertension Likely obesity hypoventilation syndrome Bed-bound Date of Service: Oct 04, 2024 Billing Provider: ARNAUD CASTRO MD Common Visit Codes: [id number]/OBS DISCH DAY >30min ARNAUD CASTRO MD Oct 04, 2024 14:33
[2024-10-05] VITALS (7 sets, daily range): BP systolic 141–170; BP diastolic 78–96; PULSE 93–127; RESP 16–20; TEMP 97.9–99.3; O2SAT 16–99
[2024-10-05] MEDS: dilTIAZem 25 MG/5 ML VIAL IV ONE (00:12)
[2024-10-05] MEDS: ONDANSETRON HCL 4 MG/2 ML VIAL IV PRN (00:15)
[2024-10-05] MEDS: LISINOPRIL 20 MG TAB PO SCH (10:03)
[2024-10-05 10:16] LABS: Basophils # (auto) 0.1 10 ^3/uL (0-0.2); Eosinophils # (auto) 0.1 10 ^3/uL (0-0.8); Hemoglobin 9.8 g/dL (12.2-16.2)
[2024-10-05 10:17] LABS: Basophils % (auto) 0.9 % (0.0-2.0); Eosinophils % (auto) 1.6 % (0.0-7.0); Hematocrit 30.6 % (36.0-46.0); Lymphocytes # (auto) 1.1 10 ^3/uL (0.4-5.4); Lymphocytes % (auto) 16.5 % (10.0-50.0); Mean Corpuscular Hemoglobin 25.5 pg (28.0-32.0); Mean Corpuscular Hgb Conc. 32.2 g/dL (32.0-36.0); Mean Corpuscular Volume 79.2 fL (80.0-100.0); Monocytes # (auto) 0.3 10 ^3/uL (0-1.3); Monocytes % (auto) 4.7 % (0.0-12.0); Neutrophils # (auto) 5.1 10 ^3/uL (1.6-8.6); Neutrophils % (auto) 76.3 % (37.0-80.0); Nucleated Red Blood Cells % 0.1 %; Platelet Count (auto) 431 10^3/uL (140-450); Red Blood Cells 3.86 10^6/uL (4.0-5.20); Red Cell Distribution Width 17.6 % (11.8-14.3); White Blood Cell 6.6 10^3/uL (4.4-10.8)
[2024-10-05 10:23] LABS: Chloride 102 mmol/L (98-107); Potassium 4.1 mmol/L (3.5-5.1); Sodium 139 mmol/L (136-145)
[2024-10-05 10:24] LABS: Anion Gap 5 (5-15)
[2024-10-05 10:25] LABS: Calcium 9.6 mg/dL (8.7-10.4)
[2024-10-05 10:29] LABS: BUN/Creatinine Ratio 8.7 (10.0-20.0)
[2024-10-05 10:47] LABS: Blood Urea Nitrogen 6 mg/dL (9-23); Carbon Dioxide 32 mmol/L (20-31); Glucose 123 mg/dL (74-106)
[2024-10-05] MEDS ORDERED: SODIUM ZIRCONIUM CYCL 10 GM PAK PO ONE (11:30)
--- NOTE | 2024-10-05 15:11 | DVHPN2 ---
Assessment/Plan Assessment/Plan Progress note Subjective 79-year-old female living in for most admitted for pyelonephritis. My exam patient was septic, tachycardic, received antibiotics. Patient was not fluid overloaded so we initiate 30 cc per kg of fluid bolus Seen during rounds today for discharge yesterday, pending transport Objective Physical exam Alert, oriented x3 PERRLA Morbidly obese Distant heart sounds Distant lung sounds, no crackles Abdomen soft nontender, no organomegaly Moving all four extremities Trace extremity edema Lab Bicarb 29 WBC 14 Hemoglobin 10 Positive UA Imaging Chest x-ray clear CT abdomen concerning of left pyelonephritis, bilateral atelectasis Assessment and plan Sepsis secondary to UTI Pyelonephritis Morbid obesity Hypertension Pulmonary hypertension Likely obesity hypoventilation syndrome Bed-bound Empiric ceftriaxone Urine culture IV fluid bolus Watch respiratory status, if increasing oxygen requirements we will start Lasix Resume home meds Advance diet as tolerated bipap at night pending UCX dc zamora Replete electrolytes Diet mechanical soft DVT prophylaxis Lovenox Plan discussed with: Patient My Orders Orders - ARNAUD CASTRO MD Procedure Category Date Status Time Electrocardigram EKG 10/05/24 Logged 08:36 Lisinopril Tablet PHA 10/05/24 In Process (Zestril Tablet) 10:00 * Watch Caser CONS 10/05/24 Transmitted Consult Discharge DISCHARGE 10/05/24 Transmitted 10:00 Date of Service: Oct 05, 2024 Billing Provider: ARNAUD CASTRO MD Common Visit Codes: [id number]-INB/OBS DISCH DAY >30min ARNAUD CASTRO MD Oct 05, 2024 15:11
== END 2024-10-05 16:05 | disposition home or self-care (01) | DRG 872 ==
LOC: ER 20:41 → EDBD 20:41 → CENTRAL 09-30 04:25 → OVERFLOW 09-30 04:25 → CENTRAL 09-30 14:58 → TELE-CENTR 09-30 19:02 → CENTRAL 10-01 18:45 → TELE-CENTR 10-04 22:48
PROVIDERS: ADMIT Nurse Practitioner; ATTEND Student in an Organized Health Care Education/Training Program
DX: A41.9 Sepsis, unspecified organism (principal); N12 Tubulo-interstitial nephritis, not specified as acute or chronic; E66.2 Morbid (severe) obesity with alveolar hypoventilation; Z68.43 Body mass index [BMI] 50.0-59.9, adult; I27.20 Pulmonary hypertension, unspecified; J44.9 Chronic obstructive pulmonary disease, unspecified; I50.9 Heart failure, unspecified; I11.0 Hypertensive heart disease with heart failure; Z88.5 Allergy status to narcotic agent; Z74.01 Bed confinement status; Z79.82 Long term (current) use of aspirin; Z79.899 Other long term (current) drug therapy
CPT/HCPCS: 36415; 71045; 74177; 80048; 80053; 81001; 83605; 83880; 85025; 93005; 96361; 96365; 96367; 96375; G0378; J0692; J2405

== ENCOUNTER 2025-05-15 06:54 | Inpatient (IN) | payer OTHER, MEDICARE, MEDICAID ==
[~2025-05-15] VITALS: Ht 170.2 cm; Wt 166.4 kg
[~2025-05-15 06:54] MED LIST changes: +CEFP200T15 PO; -CLON0.1T PO
--- NOTE | 2025-05-15 07:12 | ED.PDOC ---
SOB-HPI HPI Comments This is a 79 year old female BIBA presenting to the ED with chief complaint of SOB and nasal pain. EMS reports that the patient has been experiencing increased SOB for the past day along with associated nasal pain with her nasal cannula. EMS relays that the patient is coming from [facility] and is currently on hospice. EMS states patient is 98% on O2. Patient denies any chest pain, dizziness, nasal congestion, fever, chills, cough, or N/V. Chief Complaint: Shortness of Breath Time Seen by MD: 07:10 Reviewed notes: Nurses Notes, Termite Control Representative Notes, Medications, Allergies Information Source: Patient, Emergency Med Personnel Mode of Arrival: EMS Severity: Moderate Timing: Hours Duration: Since onset Context: At Rest PE Risk Factors: None History of: CHF Prehospital treatment: Oxygen Modifying Factors: Nothing Associated Signs and Symptoms: None Past Medical History PAST MEDICAL HISTORY: CHF, HTN Surgical History: Hysterectomy Surgical History (Other): Kidney stone removal [employer]PENTER [employer]SEM[employer]ER History: Denies all [employer]ENTER [employer]SEM[employer]ER Hx Family History Family History: Reviewed,noncontributory to illness Social History Smoker: Non-Smoker Alcohol: Denies ETOH Use Drugs: Denies Drug Use Lives In: [facility] Constitutional: denies: chills, diaphoresis, fatigue, fever, malaise, sweats, weakness, others EENTM: reports: nose pain; denies: blurred vision, double vision, ear bleeding, ear discharge, ear drainage, ear pain, ear ringing, eye pain, eye redness, hearing loss, mouth pain, mouth swelling, nasal discharge, nose bleeding, nose congestion, photophobia, tearing, throat pain, throat swelling, voice changes, others Respiratory: reports: shortness of breath; denies: cough, hemoptysis, orthopnea, SOB at rest, SOB with excertion, stridor, wheezing, others Cardiovascular: denies: chest pain, dizzy spells, diaphoresis, Dyspnea on exertion, edema, irregular heart beat, left arm pain, lightheadedness, palpitations, PND, syncope, others Gastrointestinal: denies: abdomen distended, abdominal pain, blood streaked bowels, constipated, diarrhea, dysphagia, difficulty swallowing, hematemesis, melena, nausea, poor appetite, poor fluid intake, rectal bleeding, rectal pain, vomiting, others Genitourinary: denies: abnormal vagina bleeding, burning, dyspareunia, dysuria, flank pain, frequency, hematuria, incontinence, pain, , vagina discharge, urgency, others Neurological: denies: dizziness, fainting, headache, left sided numbness, left sided weakness, numbness, paresthesia, pre-existing deficit, right sided numbness, right sided weakness, seizure, speech problems, tingling, tremors, weakness, others Musculoskeletal: denies: back pain, gout, joint pain, joint swelling, muscle pain, muscle stiffness, neck pain, others Integumetry: denies: bruises, change in color, change in hair/nails, dryness, laceration, lesions, lumps, rash, wounds, others Allergic/Immunocompromised: denies: Difficulty Healing, Frequent Infections, Hives, Itching, others Hematologic/Lymphatic: denies: anemia, blood clots, easy bleeding, easy bruising, swollen glands, others Endocrine: denies: excessive hunger, excessive sweating, excessive thirst, excessive urination, flushing, intolerance to cold, intolerance to heat, unexplained weight gain, unexplained weight loss, others Psychiatric: denies: anxiety, bipolar disorder, depression, hopeless, panic disorder, schizophrenia, sleepless, suicidal, others All Other Systems: Reviewed and Negative Physical Exam General Appearance: Moderate Distress, Obese HEENT: Normal ENT Inspection, Pharynx Normal, TMs Normal Neck: Full Range of Motion, Non-Tender, Normal, Normal Inspection Respiratory: Chest Non-Tender, Lungs Clear, No Accessory Muscle Use, No Respiratory Distress, Normal Breath Sounds Cardiovascular: No Edema, No JVD, No Murmur, No Gallop, Normal Peripheral Pulses, Regular Rate/Rhythm Breast Exam: Deferred Gastrointestinal: No Organomegaly, Non Tender, No Pulsatile Mass, Normal Bowel Sounds, Soft Genitalia: Deferred Pelvic: Deferred Rectal: Deferred Extremities: No calf tenderness, Normal capillary refill, Non-tender, No pedal edema Musculoskeletal : Apperance: Normal Neurologic: Alert, clay washer II-XII nml as Tested, No Motor Deficits, Normal Affect, Normal Mood, No Sensory Deficits Cerebellar Function: NOT DONE Reflexes: NOT DONE Skin: Dry, Normal Color, Warm Peripheral Pulses: 3+ Radial (R), 3+ Radial (L) Lymphatic: No Adenopathy Was a procedure done? Was a procedure done?: No Differential Dx Differential Diagnosis: Anxiety, Asthma, Bronchitis, CHF, COPD X-Ray, Labs, Meds, VS Vital Signs Date Time Temp Pulse Resp B/P (MAP) Pulse Ox O2 Delivery O2 Flow Rate FiO2 05/15/25 07:44 16 95 Nasal Cannula* 2 28 05/15/25 06:55 97 Room Air* 0 21 05/15/25 06:55 98.2 97 18 123/78 (93) 98 98.2 Current Medications Medications (Trade) Dose Ordered Sig/Ivett Route Start Time Stop Time Status Last Admin Albuterol (Ventolin Medneb) 5 mg ONCE ONCE NEB 05/15/25 07:45 05/15/25 07:46 DC 05/15/25 07:41 Ipratropium [place] (Atrovent Medneb) 0.5 mg ONCE ONCE NEB 05/15/25 07:45 05/15/25 07:46 DC 05/15/25 07:41 Chest XR: FINDINGS: Lines and tubes: None Cardiomediastinal silhouette: Prominent. Pulmonary vasculature: Prominent Lung expansion: normal Lung airspace: normal Lung interstitium: normal Pleura: normal Pneumothorax: no Bones: Unremarkable Other: no IMPRESSION: Cardiomegaly with pulmonary congestion. Patient alert. Coming from a detention. Heavy breathing. Vitals stable. Was given breathing treatment. Was given steroid. Chest x-ray reviewed does show congestion. Placed on oxygen. Was given Lasix. Explained to the patient. Continue monitoring. Images Reviewed?: Images reviewed and evaluated by me Time of 1ST Reevaluation: 08:09 Reevaluation 1ST: Unchanged Patient Education/Counseling: Diagnosis, Treatment Family Education/Counseling: No Family Present SEPSIS Sepsis Screen Physician Orders Troponin-I Hs (05/15/25 07:31) Complete Blood Count (05/15/25 07:31) Chest Portable (05/15/25 07:31) Urinalysis (05/15/25 07:31) Basic Metabolic Panel (05/15/25 07:31) Vital Signs Date Time Temp Pulse Resp B/P (MAP) Pulse Ox O2 Delivery O2 Flow Rate FiO2 05/15/25 07:44 16 95 Nasal Cannula* 2 28 05/15/25 06:55 97 Room Air* 0 21 05/15/25 06:55 98.2 97 18 123/78 (93) 98 98.2 Medications Medications Dose Ordered Sig/Ivett Route Start Time Stop Time Status Last Admin Dose Admin Albuterol 5 mg ONCE ONCE NEB 05/15/25 07:45 05/15/25 07:46 DC 05/15/25 07:41 Ipratropium [place] 0.5 mg ONCE ONCE NEB 05/15/25 07:45 05/15/25 07:46 DC 05/15/25 07:41 Departure 1 Departure Time of Disposition: 09:03 Impression: Primary Impression: CHF (congestive heart failure) Qualified Codes: I50.43 - Acute on chronic combined systolic (congestive) and diastolic (congestive) heart failure Additional Impression: Pneumonitis Disposition: ADMITTED INPATIENT Admit to: Med Surg Condition: Guarded Critical Care Note Critical Care Time?: No Stability Stability form required: No Heart Score Heart Score: Heart Score Response (Comments) Value History N/A 0 EKG N/A 0 Age N/A 0 Risk Factors N/A 0 Troponin N/A 0 Total 0 I personally scribed for OPAL CURTIS MD ([email or web address]) on 05/15/25 at 07:12. Electronically submitted by [facility] ([email or web address]). I personally scribed for OPAL CURTIS MD ([email or web address]) on 05/15/25 at 08:59. Electronically submitted by Wesley Clark ([email or web address]). OPAL CURTIS MD May 15, 2025 07:12
[2025-05-15] MEDS: ALBUTEROL SULF 2.5 MG/0.5ML(0.5%) NEB SOLN NEB ONE (07:41)
[2025-05-15] MEDS: IPRATROPIUM BROM 0.5 MG/2.5ML INH SOL NEB ONE (07:41)
--- NOTE | 2025-05-15 08:52 | DVH ---
XY CHEST PORTABLE, HISTORY: sob COMPARISON: XY CHEST PORTABLE on DOS: 09/30/24, XY CHEST PORTABLE on DOS: 08/17/24, XY CHEST PORTABLE on DOS: 08/12/24 XY CHEST PORTABLE on DOS: 09/30/24, XY CHEST PORTABLE on DOS: 08/17/24, XY CHEST PORTABLE on DOS: TECHNICAL DATA: 1 view of the chest was obtained. FINDINGS: Lines and tubes: None Cardiomediastinal silhouette: Prominent. Pulmonary vasculature: Prominent Lung expansion: normal Lung airspace: normal Lung interstitium: normal Pleura: normal Pneumothorax: no Bones: Unremarkable Other: no IMPRESSION: Cardiomegaly with pulmonary congestion.
[2025-05-15 09:12] LABS: Hemoglobin 10.1 g/dL (12.2-16.2); Nucleated Red Blood Cells % 0.0 %
[2025-05-15] MEDS: PIPERACILLIN-TAZOB 3.375GM 100 ML IV ONE (09:15)
[2025-05-15 09:17] LABS: Hematocrit 31.8 % (36.0-46.0); Mean Corpuscular Hemoglobin 25.8 pg (28.0-32.0); Mean Corpuscular Volume 81.3 fL (80.0-100.0)
[2025-05-15 09:25] LABS: Chloride 103 mmol/L (98-107); Potassium 3.7 mmol/L (3.5-5.1)
[2025-05-15 09:26] LABS: Anion Gap 10 (5-15); Calcium 9.7 mg/dL (8.7-10.4)
[2025-05-15 09:30] LABS: Carbon Dioxide 33 mmol/L (20-31); Sodium 146 mmol/L (136-145)
[2025-05-15 09:31] LABS: BUN/Creatinine Ratio 25.0 (10.0-20.0); Blood Urea Nitrogen 23 mg/dL (9-23); Glucose 90 mg/dL (74-106)
[2025-05-15] MEDS ORDERED: MIDODRINE HCL 5 MG PO PRN (11:00)
[2025-05-15] MEDS ORDERED: ONDANSETRON HCL 4 MG/2 ML VIAL IV PRN ×2 (11:00→11:15)
[2025-05-15] MEDS ORDERED: NITROGLYCERIN 0.4 MG SL TAB SL PRN ×2 (11:00→11:15)
[2025-05-15] MEDS ORDERED: MORPHINE SULFATE INJ 2 MG/ml SYRG IV PRN (11:00)
[2025-05-15] MEDS ORDERED: DOCUSATE SOD 100 MG CAP PO PRN ×2 (11:00→11:15)
--- NOTE | 2025-05-15 11:09 | DVHHP2 ---
History of Present Illness Reason for Visit: sob and nasal pain History of Present Illness 73-year-old female with past medical history of (CHF) and hypertension, and surgical history of hysterectomy and stone removal, presents from [facility] with complaints of burning nasal discomfort and increased shortness of breath. She reports that her home oxygen setup previously included humidity, but this was recently removed by nursing staff, and since then she has experienced severe nasal burning. The staff attempted to apply vasline ointment intranasally caused more pain, but the patient requested ER evaluation due to worsening symptoms. She denies nasal trauma, chest pain, nausea, or vomiting, but reports dyspnea worse than baseline. She is currently on 2L nasal cannula with oxygen saturation of 98%. In the ED, she received Lasix and albuterol. Lab work revealed hemoglobin 10.1, HCT 31.8, BUN 31, Cr 0.86, suggestive of volume overload. Chest x-ray showed cardiomegaly and vascular congestion. Patient also endorsed burning with urination. Urinalysis has been sent. Given her worsening dyspnea, volume overload, and history of CHF, patient will be admitted for acute on chronic diastolic and systolic heart failure exacerbation. Additional workup for nasal irritation with CT maxillofacial is pending. Will consult cardiology, respiratory therapy, and provide symptomatic relief. Past Medical History See HPI above Past Surgical History See HPI above Family History Reviewed, non-contributory to the management of this case. Past Social History The patient lives at home, denies smoking, alcohol or illicit drugs abuse. Review of Systems Constitutional: No: Fever, Chills, Sweats, Weakness, Malaise, Other Eyes: No: Pain, Vision change, Conjunctivae inflammation, Eyelid inflammation, Other, Redness ENT: Nose pain; No: Ear pain, Ear discharge, Nose discharge, Nose congestion, Mouth pain, Mouth swelling, Throat pain, Throat swelling, Other Respiratory: Shortness of breath; No: Cough, Dry, SOB with excertion, Wheezing, Hemoptysis, Pleuritic Pain, Sputum, Wheezing, Other Cardiovascular: No: Chest Pain, Palpitations, Orthopnea, Paroxysmal Noc. Dys pnea, Edema, Lt Headedness, Other Gastrointestinal: No: Nausea, Vomiting, Abdominal Pain, Diarrhea, Constipation, Melena, Hematochezia, Other Genitourinary: No Dysuria, No Frequency, No Incontinence, No Hematuria, No Retention, No Other Musculoskeletal: No: other, neck pain, shoulder pain, arm pain, back pain, hand pain, leg pain, foot pain Skin: No: Rash, Lesions, Jaundice, Bruising, Other Neurological: Weakness; No: Numbness, Incoordination, Change in speech, Confusion, Seizures, Other Allergies: Coded Allergies: Codeine (Verified Allergy, Unknown, 08/10/24) Medications Current Medications Medications Dose Ordered Sig/Ivett Route Start Time Stop Time Status Last Admin Dose Admin Mupirocin 1 applic BID EACHNOSTRI 05/15/25 22:00 05/20/25 21:59 UNV Ondansetron HCl 4 mg Q4HP PRN IV 05/15/25 11:00 UNV Docusate Sodium 100 mg BIDPRN PRN PO 05/15/25 11:00 UNV Morphine Sulfate 2 mg Q4HPRN PRN IV 05/15/25 11:00 UNV Nitroglycerin 0.4 mg Q5MINP PRN SL 05/15/25 11:00 UNV Furosemide 40 mg BIDD IV 05/15/25 18:00 UNV Apixaban 2.5 mg BID PO 05/15/25 22:00 UNV Cefpodoxime Proxetil 200 mg BID PO 05/15/25 22:00 UNV Lisinopril 10 mg DAILY PO 05/16/25 10:00 UNV Multivitamins/ Minerals 1 tab DAILY PO 05/16/25 10:00 UNV Pantoprazole Sodium 40 mg DAILY PO 05/16/25 10:00 UNV Tramadol HCl 50 mg Q6HPRN PRN PO 05/15/25 11:00 UNV Patient Own Medication 81 mg DAILY PO 05/16/25 10:00 UNV Patient Own Medication 325 mg DAILY PO 05/16/25 10:00 UNV Patient Own Medication 1 mg DAILY PO 05/16/25 10:00 UNV Patient Own Medication 5 mg Q6HPRN PRN PO 05/15/25 11:00 UNV Exam Vital Signs Vital Signs Date Time Temp Pulse Resp B/P (MAP) Pulse Ox O2 Delivery O2 Flow Rate FiO2 05/15/25 07:44 16 95 Nasal Cannula* 2 28 05/15/25 06:55 98.2 97 123/78 (93) 98.2 General Appearance: Alert, Oriented X3, Cooperative, No acute distress HEENT: Atraumatic, PERRLA, EOMI, Mucous membr. moist/pink, Other (Bilateral nares with polyps seen overlying the skin mild erythema excoriation noted no drainage no bleeding no fluctuance) Respiratory: Other (Diminished throughout) Cardiovascular: Regular rate, Normal S1, Normal S2, No murmurs Abdominal: Normal bowel sounds, Soft, No tenderness, No hepatospenomegaly, No masses Extremities: No clubbing, No cyanosis, No edema, Normal pulses, No tenderness/swelling Skin: No rashes, No breakdown, No significant lesion Neuro: Other (Patient appears to be bedridden) Psych/Mental Status: Mental status NL, Mood NL Labs/Xrays Chest x-ray shows cardiomegaly and congestion I reviewed labs, imaging CT scan abdomen pelvis, EKG and all diagnostic studies on this patient from ED records and the medical chart Labs Test 05/15/25 09:00 Range/Units White Blood Count 7.1 4.4-10.8 10^3/uL Red Blood Count 3.91 L 4.0-5.20 10^6/uL Hemoglobin 10.1 L 12.2-16.2 g/dL Hematocrit 31.8 L 36.0-46.0 % Mean Corpuscular Volume 81.3 80.0-100.0 fL Mean Corpuscular Hemoglobin 25.8 L 28.0-32.0 pg Mean Corpuscular Hemoglobin Concent 31.7 L 32.0-36.0 g/dL Red Cell Distribution Width 17.7 H 11.8-14.3 % Platelet Count 278 140-450 10^3/uL Mean Platelet Volume 8.6 6.9-10.8 fL Neutrophils (%) (Auto) 64.9 37.0-80.0 % Lymphocytes (%) (Auto) 25.6 10.0-50.0 % Monocytes (%) (Auto) 7.3 0.0-12.0 % Eosinophils (%) (Auto) 1.5 0.0-7.0 % Basophils (%) (Auto) 0.7 0.0-2.0 % Neutrophils # (Auto) 4.6 1.6-8.6 10 ^3/uL Lymphocytes # (Auto) 1.8 0.4-5.4 10 ^3/uL Monocytes # (Auto) 0.5 0-1.3 10 ^3/uL Eosinophils # (Auto) 0.1 0-0.8 10 ^3/uL Basophils # (Auto) 0 0-0.2 10 ^3/uL Nucleated Red Blood Cells 0.0 % Sodium Level 146 H 136-145 mmol/L Potassium Level 3.7 3.5-5.1 mmol/L Chloride Level 103 98-107 mmol/L Carbon Dioxide Level 33 H 20-31 mmol/L Anion Gap 10 5-15 Blood Urea Nitrogen 23 9-23 mg/dL Creatinine 0.92 0.550-1.02 mg/dL Glomerular Filtration Rate Calc 64 >90 mL/min BUN/Creatinine Ratio 25.0 H 10.0-20.0 Serum Glucose 90 74-106 mg/dL Calcium Level 9.7 8.7-10.4 mg/dL Troponin I High Sensitivity 8 </=34 ng/L SEPSIS Sepsis Screen Date sepsis recognized/suspect: May 15, 2025 Time Sepsis recognized/suspect: 654 Recent Procedure: No On Antibiotic Therapy: No Respiratory Rate >20: No Heart Rate >90: Yes Temp<36 C (96.8 F) or >38.3 C: No SBP <90 or MAP <65 mmHG: No New Acute Mental Status Change: No Is the patient on CPAP, BIPAP,: No Physician Orders Chest Portable (05/15/25 07:31) Urinalysis (05/15/25 07:31) Respiratory Misc. Order (05/15/25 10:57) Nose Throat Culture (05/15/25 10:57) Mupirocin 2% Oint Mrsa Nares (Bactroban (05/15/25 22:00) Maxillofacial Without (05/15/25 10:57) Admit (05/15/25 10:57) Allergies (05/15/25 10:57) Code Status (05/15/25 10:57) Ondansetron Hcl (Zofran) (05/15/25 11:00) Docusate Sodium Capsule (Colace Capsule) (05/15/25 11:00) Complete Blood Count (05/16/25 04:00) Comprehensive Metabolic Panel (05/16/25 04:00) Cardiac Diet-2gna,Lofat,Lochol (05/15/25 Lunch) Condition: Stable (05/15/25 10:57) BRP (05/15/25 10:57) Morphine Sulfate Injection (05/15/25 11:00) Sequential Compression Device (05/15/25 ) Nitroglycerin Sublingual (Ntrostat Subli (05/15/25 11:00) Stat Ekg For Chest Pain (05/15/25 10:57) Notify Md Of Changes From Base (05/15/25 10:57) Social Media Marketer For 24 Hours (05/15/25 10:57) Emergency Dysrhythmia Protocol (05/15/25 10:57) Rhythm Strips Once Every Shift (05/15/25 10:57) Oxygen By Nasal Cannula (05/15/25 10:57) Furosemide Injection (Lasix Injection) (05/15/25 18:00) Echo 2d Mode Cardiac Dop (05/15/25 10:57) Apixaban (Eliquis) (05/15/25 22:00) Cefpodoxime Proxetil (Vantin) (05/15/25 22:00) Lisinopril Tablet (Zestril Tablet) (05/16/25 10:00) Multiple Vitamin W Mineral Tab (Mvi W/ M (05/16/25 10:00) Pantoprazole Tablet (Protonix Tablet) (05/16/25 10:00) Tramadol Hcl (Ultram) (05/15/25 11:00) (Nf) Aspirin (Aspirin Low Dose) (05/16/25 10:00) (Nf) Ferrous Sulfate (Ferosul) (05/16/25 10:00) (Nf) Folic Acid (05/16/25 10:00) (Nf) Midodrine Hcl (Midodrine Hydrochlor (05/15/25 11:00) Vital Signs Date Time Temp Pulse Resp B/P (MAP) Pulse Ox O2 Delivery O2 Flow Rate FiO2 05/15/25 07:44 16 95 Nasal Cannula* 2 28 05/15/25 06:55 97 Room Air* 0 21 05/15/25 06:55 98.2 97 18 123/78 (93) 98 98.2 Laboratory Tests Test 05/15/25 09:00 White Blood Count 7.1 10^3/uL (4.4-10.8) Medications Medications Dose Ordered Sig/Ivett Route Start Time Stop Time Status Last Admin Dose Admin Albuterol 5 mg ONCE ONCE NEB 05/15/25 07:45 05/15/25 07:46 DC 05/15/25 07:41 5 MG Ipratropium [place] 0.5 mg ONCE ONCE NEB 05/15/25 07:45 05/15/25 07:46 DC 05/15/25 07:41 0.5 MG Assessment/Plan Assessment/Plan 79-year-old female with Acute on chronic systolic or diastolic heart failure with volume overload admit for diuresis, oxygen support, and cardiac workup. ASSESSMENT & PLAN Acute on chronic systolic diastolic heart failure Volume overload on exam and chest x-ray Continue IV Lasix Daily weights, strict I&Os Low-sodium diet Monitor electrolytes, renal function Cardiology consult ordered Echocardiogram ordered asa and atorvastatin acute Nasal mucosal irritation Likely secondary to dry oxygen without humidification Start mupirocin nasal ointment BID CT maxillofacial to rule out polyps, masses, or infection Respiratory therapy consult for oxygen humidification support Hypertension Monitor BP; continue home antihypertensives if stable Adjust as needed for volume status Urinary symptoms (dysuria), rule out UTI Urinalysis and urine culture pending If positive, initiate antibiotics accordingly CHRONIC PROBLEM LIST Congestive heart failure Hypertension Hysterectomy Nephrolithiasis, history of kidney stone (resolved) FEN / PPx Fluids: IV fluids only if hypotensive or required for meds Electrolytes: Monitor BMP daily; replete K/Mg as needed Nutrition: Cardiac/low-sodium diet DVT Prophylaxis: SCDs and eliquis GI Prophylaxis: protonix Disposition Admit to internal medicine. Diuresis for CHF exacerbation. Cardiology consult, echocardiogram, and evaluation for nasal dryness. Treat urinary symptoms pending culture. Supportive care with input from respiratory therapy. Plan discussed with: Patient My Orders Orders - JENIFFER LOZOYA DNP Procedure Category Date Status Time Respiratory Misc. RT 05/15/25 Transmitted Order 10:57 Nose Throat Culture ALESSANDRO 05/15/25 Logged 10:57 Mupirocin 2% Oint PHA 05/15/25 Logged Mrsa Nares (Bactroban 22:[address] 05/15/25 Logged 10:57 Admit ADMIT 05/15/25 Transmitted 10:57 Allergies FIDE 05/15/25 In Process 10:57 Code Status CODE 05/15/25 Transmitted 10:57 Ondansetron Hcl PHA 05/15/25 Logged (Zofran) 11:00 Docusate Sodium PHA 05/15/25 Logged Capsule (Colace 11:00 Complete Blood Count LAB 05/16/25 Verified 04:00 Comprehensive LAB 05/16/25 Verified Metabolic Panel 04:00 Cardiac DIET 05/15/25 Transmitted Diet-2gna,Lofat,Lochol Lunch Condition: Stable [facility] 05/15/25 In Process 10:57 BRP [facility] 05/15/25 In Process 10:57 Morphine Sulfate [facility] 05/15/25 Logged Injection 11:00 Sequential FIDE 05/15/25 In Process Compression Device Nitroglycerin [facility] 05/15/25 Logged Sublingual (Ntrostat 11:00 Stat Ekg For Chest [facility] 05/15/25 In Process Pain 10:57 Notify Of Changes [facility] 05/15/25 In Process From Base 10:57 Social Media Marketer For [facility] 05/15/25 In Process 24 Hours 10:57 Emergency Dysrhythmia [facility] 05/15/25 In Process Protocol 10:57 Rhythm Strips Once [facility] 05/15/25 In Process Every Shift 10:57 Oxygen By Nasal RT 05/15/25 Transmitted Cannula 10:57 Furosemide Injection [facility] 05/15/25 Logged (Lasix Injection) 18:00 Echo 2d Mode Cardiac US 05/15/25 Logged DOP 10:57 Apixaban (Eliquis) PHA 05/15/25 Logged 22:00 Cefpodoxime Proxetil PHA 05/15/25 Logged (Vantin) 22:00 Lisinopril Tablet PHA 05/16/25 Logged (Zestril Tablet) 10:00 Multiple Vitamin W PHA 05/16/25 Logged Mineral Tab (Mvi W/ M 10:00 Pantoprazole Tablet PHA 05/16/25 Logged (Protonix Tablet) 10:00 Tramadol Hcl (Ultram) PHA 05/15/25 Logged 11:00 (Nf) Aspirin (Aspirin PHA 05/16/25 Logged Low Dose) 10:00 (Nf) Ferrous Sulfate PHA 05/16/25 Logged (Ferosul) 10:00 (Nf) Folic Acid PHA 05/16/25 Logged 10:00 (Nf) Midodrine Hcl PHA 05/15/25 Logged (Midodrine Hydrochlor 11:00 Date of Service: May 15, 2025 Billing Provider: JENIFFER LOZOYA DNP Common Visit Codes: [id number] INP/OBS CARE (HIGH) JENIFFER LOZOYA DNP May 15, 2025 11:09
[2025-05-15 11:37] VITALS: PULSE 92; RESP 19; O2SAT 99
[2025-05-15] MEDS ORDERED: MIDODRINE HCL 10 MG TAB PO PRN (12:45)
--- NOTE | 2025-05-15 12:52 | DVH ---
HISTORY: acute bilateral nasal pain eval for abscess TECHNIQUE: Nonenhanced axial images through the facial bones with coronal and sagittal MPR. Radiation Dose Information: CT Dose: CTDI volume is 28 mGy. Dose-length product is 1475 mGy*cm COMPARISON: None FINDINGS: Mandible: Unremarkable Maxilla: Unremarkable Zygomatic arches: Unremarkable Nasal bone: Unremarkable Orbits: Unremarkable Sinuses: Clear Facial swelling: None IMPRESSION: 1. No acute findings Radiation optimization: All CT scans at this facility use at least one of these dose optimization bernardino hniques: automated exposure control mA and/or kV adjustment per patient size (includes targeted exam s where dose is matched to clinical indication) or iterative reconstruction.
[2025-05-15 13:05] LABS: Urine Protein, UAD 2+ (Negative)
[2025-05-15] MEDS: FUROSEMIDE 40 MG/4 ML VIAL IV ONE (16:19)
[2025-05-15] MEDS: methylPREDNISolone SOD SUCC 125 MG/2 ML VL IV ONE (16:19)
[2025-05-15 17:44] VITALS: BP 142/83; PULSE 94; RESP 18; TEMP 98; O2SAT 95
[2025-05-15] MEDS ORDERED: FUROSEMIDE 40 MG/4 ML VIAL IV SCH (18:00)
[2025-05-15] MEDS: FUROSEMIDE 40 MG/4 ML VIAL IV SCH (19:34)
[2025-05-15 20:00] VITALS: PULSE 96; RESP 16; O2SAT 99
[2025-05-15 21:00] VITALS: BP 148/92; PULSE 93; RESP 16; TEMP 97.8; O2SAT 99
[2025-05-15] MEDS: MUPIROCIN 2% OINT 15gm or 22gm FOR MRSA NARES EACHNOSTRI SCH (21:55)
[2025-05-15] MEDS ORDERED: MUPIROCIN 2% OINT 15gm or 22gm FOR MRSA NARES EACHNOSTRI SCH (22:00)
[2025-05-15] MEDS ORDERED: APIXABAN 2.5 MG TAB PO SCH ×2 (22:00)
[2025-05-15] MEDS ORDERED: CEFPODOXIME PROXETIL 200 MG TAB PO SCH ×2 (22:00)
[2025-05-16] VITALS (8 sets, daily range): BP systolic 101–139; BP diastolic 66–86; PULSE 89–100; RESP 14–17; TEMP 96.9–98.1; O2SAT 96–99
[2025-05-16 06:44] LABS: Alanine Aminotransferase 12 U/L (7-40); Albumin 3.8 g/dL (3.2-4.8); Alkaline Phosphatase 79 U/L (46-116); Anion Gap 10 (5-15); BUN/Creatinine Ratio 25.9 (10.0-20.0); Blood Urea Nitrogen 21 mg/dL (9-23); Calcium 9.6 mg/dL (8.7-10.4); Chloride 101 mmol/L (98-107); Glucose 99 mg/dL (74-106); Potassium 4.6 mmol/L (3.5-5.1); Sodium 144 mmol/L (136-145); Total Protein 7.5 g/dL (5.7-8.2)
[2025-05-16 06:46] LABS: Bilirubin, Total 0.3 mg/dL (0.2-1.0); Carbon Dioxide 33 mmol/L (20-31)
[2025-05-16 09:33] LABS: Hematocrit 33.8 % (36.0-46.0); Hemoglobin 10.8 g/dL (12.2-16.2); Mean Corpuscular Hemoglobin 25.7 pg (28.0-32.0); Mean Corpuscular Volume 80.9 fL (80.0-100.0); Nucleated Red Blood Cells % 0.1 %
[2025-05-16] MEDS ORDERED: PATIENTS OWN MEDICATION (Ferrous Sulfate (Ferosul) 325 MG) PO SCH (10:00)
[2025-05-16] MEDS ORDERED: PATIENTS OWN MEDICATION (Folic Acid 1 MG) PO SCH (10:00)
[2025-05-16] MEDS ORDERED: LISINOPRIL 20 MG TAB PO SCH (10:00)
[2025-05-16] MEDS ORDERED: MULTIPLE VITAMINS W/ MINERALS TAB PO SCH (10:00)
[2025-05-16] MEDS ORDERED: PANTOPRAZOLE 40 MG TAB PO SCH (10:00)
[2025-05-16] MEDS ORDERED: PATIENTS OWN MEDICATION (Aspirin (Aspirin Low Dose) 81 MG) PO SCH (10:00)
[2025-05-16] MEDS: FOLIC ACID 1 MG TAB PO SCH (12:06)
[2025-05-16] MEDS: FERROUS SULFATE 325mg EC TAB PO SCH (12:06)
[2025-05-16] MEDS: PANTOPRAZOLE 40 MG TAB PO SCH (12:07)
[2025-05-16] MEDS: MULTIPLE VITAMINS W/ MINERALS TAB PO SCH (12:07)
[2025-05-16] MEDS: LISINOPRIL 20 MG TAB PO SCH (12:10)
[2025-05-16] MEDS: CEFPODOXIME PROXETIL 200 MG TAB PO SCH (12:13)
--- NOTE | 2025-05-16 16:46 | DVHSR ---
APPROVED REPORT EXAM: Two-dimensional and M-mode echocardiogram with Doppler and color Doppler. Blood Pressure: 146/71 mmHg INDICATION Eval for cardiac function and ef RISK FACTORS Obesity: Height: 5'7", Weight: 352 DIMENSIONS LVDd5.4 (3.8-5.7cm)LA (2D)3.9 (1.9-4.0cm)Aortic Root3.2 (2.0-3.7cm) LVDs3.7 (2.5-4.0cm)LA (MM) (1.9-4.0cm)Aortic Cusp Exc1.7 (1.5-2.0cm) EF (%) 60.0 (55-70%)Rt. Atrium4.4 (1.9-4.0cm)Asc. Aorta cm IVSd1.2 (0.7-1.1cm)RV (D) (1.8-2.4cm) PWd1.1 (0.7-1.1cm) Mitral Valve MitralMitral Stenosis E wave1.07m/sMV Mean GR.mmHg A wave1.51m/sMV Peak GR.mmHg E/A ratio0.72D MVAcm2 DECEL [id number] 1/2 Timems Aortic Valve Aortic ValveAortic Stenosis V11.18m/Rufina Mean GR.13mmHg V22.56m/Rufina Peak GR.26mmHg LVOT Diameter2.0 (1.8-2.4cm)Doppler AVA1.45cm2 Tricuspid Valve TR Velocity3.22m/s [id number] Other Information Technically limited study due to body habitus. Conclusion Sinus rhythm. Technically difficult study. Difficult acoustic windows. Left atrial enlargement. Valves are normal. EF of 55-60%. Normal RV function. Moderate tricuspid regurgitation. No pericardial effusion masses or vegetations.
--- NOTE | 2025-05-16 23:43 | DVHPN2 ---
Subjective The patient is seen and examined at bedside. The patient is still complain of shortness for breath. Reviewed: Care Plan, H&P, Labs, Medications, Previous Orders, Radiology Changes from previous H/P or p: No Changes Eyes: No Pain, No Vision change, No Conjunctivae inflammation, No Eyelid inflammation, No Other, No Redness ENT: No Ear pain, No Ear discharge; Nose pain; No Nose discharge, No Nose congestion, No Mouth pain, No Mouth swelling, No Throat pain, No Throat swelling, No Other Cardiovascular: No Chest Pain, No Palpitations, No Orthopnea, No Paroxysmal Noc. Dyspnea, No Edema, No Lt Headedness, No Other Respiratory: No Cough, No Dry; Shortness of breath; No SOB with excertion, No Wheezing, No Hemoptysis, No Pleuritic Pain, No Sputum, No Other Gastrointestinal: No Nausea, No Vomiting, No Abdominal Pain, No Diarrhea, No Constipation, No Melena, No Hematochezia, No Other Genitourinary: No Dysuria, No Frequency, No Incontinence, No Hematuria, No Retention, No Other Musculoskeletal: No other, No neck pain, No shoulder pain, No arm pain, No back pain, No hand pain, No leg pain, No foot pain Skin: No Rash, No Lesions, No Jaundice, No Bruising, No Other Objective Vitals Vital Signs Date Time Temp Pulse Resp B/P (MAP) Pulse Ox O2 Delivery O2 Flow Rate FiO2 05/16/25 21:00 96.9 100 15 125/79 (94) 98 96.9 05/16/25 08:15 Nasal Cannula* 2 28 Intake/Output Intake and Output 05/16/25 07:00 Intake Total 600 ml Output Total 3100 ml Balance -2500 ml Intake Oral 600 ml Output Urine Total 3100 ml # Bowel Movements 1 General Appearance: Alert, Cooperative HEENT: Atraumatic, PERRLA, EOMI, Mucous membr. moist/pink Neck: Supple Lungs: Clear to auscultation, Normal air movement Cardiovascular: Regular rate, Normal S1, Normal S2, No murmurs, Gallops, Rubs Abdomen: Normal bowel sounds, Soft, No tenderness Neuro: Cranial nerves 3-12 NL Psych/Mental Status: Mental status NL Medications Current Medications Medications Dose Ordered Sig/Ivett Route Start Time Stop Time Status Last Admin Dose Admin Mupirocin 1 applic BID EACHNOSTRI 05/15/25 22:00 05/20/25 21:59 05/16/25 22:35 1 APPLIC Ondansetron HCl 4 mg Q4HP PRN IV 05/15/25 11:15 Morphine Sulfate 2 mg Q4HPRN PRN IV 05/15/25 11:15 Furosemide 40 mg BIDD IV 05/15/25 18:00 05/16/25 18:55 40 MG Docusate Sodium 100 mg BIDPRN PRN PO 05/15/25 11:15 Nitroglycerin 0.4 mg Q5MINP PRN SL 05/15/25 11:15 Apixaban 2.5 mg BID PO 05/15/25 22:00 Hold Lisinopril 10 mg DAILY PO 05/16/25 10:00 05/16/25 12:10 10 MG Multivitamins/ Minerals 1 tab DAILY PO 05/16/25 10:00 05/16/25 12:07 1 TAB Pantoprazole Sodium 40 mg DAILY PO 05/16/25 10:00 05/16/25 12:07 40 MG Tramadol HCl 50 mg Q6HPRN PRN PO 05/15/25 11:15 05/16/25 21:49 50 MG Aspirin 81 mg DAILY PO 05/16/25 10:00 05/16/25 12:06 81 MG Ferrous Sulfate 325 mg DAILY PO 05/16/25 10:00 05/16/25 12:06 325 MG Folic Acid 1 mg DAILY PO 05/16/25 10:00 05/16/25 12:06 1 MG Midodrine 5 mg Q6HPRN PRN PO 05/15/25 12:45 Hold Cefpodoxime Proxetil 200 mg BID PO 05/16/25 10:00 05/16/25 22:35 200 MG Laboratory Results Laboratory Tests 05/16/25 05:20 05/16/25 08:43 Chemistry Test 05/16/25 05:20 Albumin 3.8 g/dL (3.2-4.8) Calcium Level 9.6 mg/dL (8.7-10.4) Total Protein 7.5 g/dL (5.7-8.2) LFT Test 05/16/25 05:20 Alanine Aminotransferase (ALT) 12 U/L (7-40) Alkaline Phosphatase 79 U/L (46-116) Aspartate Amino Transferase (AST) 24 U/L (13-40) Total Bilirubin 0.3 mg/dL (0.2-1.0) Urinalysis Test 05/15/25 11:59 Urine Color Light-yellow (Yellow) Urine Clarity Clear (Clear) Urine pH 8.0 (5.0-9.0) Urine Specific [place] 1.016 (1.001-1.035) Urine Protein 2+ (Negative) H Urine Ketones Negative (Negative) Urine Blood 1+ /uL (Negative) H Urine Nitrite Negative (Negative) Urine Bilirubin Negative (Negative) Urine Urobilinogen Normal mg/dL (Negative) Urine Leukocyte Esterase 1+ /uL (Negative) Urine RBC 55 /hpf (0 - 4) Urine Microscopic WBC 56 /HPF (0-5) H Urine Squamous Epithelial Cells Few /hpf (<5) Urine Bacteria Few /hpf (None Seen) H Urine Glucose Normal mg/dL (Normal) Microbiology Microbiology Date/Time Source Procedure Growth Status 05/15/25 21:30 Nose MRSA Screen - Final Methicillin Resistant S.aureus Complete Assessment/Plan Assessment/Plan Acute on chronic systolic diastolic heart failure Acute nasal mucosal irritation Hypertension Urinary tract infection History of kidney stone Continuing current management. Continuing with IV Lasix. Empirically put the patient on Rocephin 1 g IV q.day. Continuing hypertensive medication. This medical document was created using an electronic medical record system with [employer] direct computerized dictation system. Although this document has been carefully reviewed, there may still be some phonetic and typographical errors. These areas are purely typographical due to imperfections of the software programs, and do not reflect any compromise in the patient's medical care. Plan discussed with: Patient My Orders Orders - LETICIA PAULA MD Procedure Category Date Status Time Apply Barrier Cream [facility] 05/16/25 In Process 09:06 Date of Service: May 16, 2025 Billing Provider: LETICIA PAULA MD Common Visit Codes: [id number] INP/OBS CARE(HIGH) LETICIA PAULA MD May 16, 2025 23:43
[2025-05-17] VITALS (8 sets, daily range): BP systolic 101–122; BP diastolic 52–87; PULSE 84–91; RESP 15–19; TEMP 96.8–99; O2SAT 90–99
[2025-05-17] MEDS: cefTRIAXone 1GM/50ML D5W 50 ML IV SCH (10:08)
--- NOTE | 2025-05-17 11:33 | DVHPN2 ---
Subjective The patient is seen and examined at bedside. The patient is still complain of shortness for breath. Reviewed: Care Plan, H&P, Labs, Medications, Previous Orders, Radiology Changes from previous H/P or p: No Changes Eyes: No Pain, No Vision change, No Conjunctivae inflammation, No Eyelid inflammation, No Other, No Redness ENT: No Ear pain, No Ear discharge; Nose pain; No Nose discharge, No Nose congestion, No Mouth pain, No Mouth swelling, No Throat pain, No Throat swelling, No Other Cardiovascular: No Chest Pain, No Palpitations, No Orthopnea, No Paroxysmal Noc. Dyspnea, No Edema, No Lt Headedness, No Other Respiratory: No Cough, No Dry; Shortness of breath; No SOB with excertion, No Wheezing, No Hemoptysis, No Pleuritic Pain, No Sputum, No Other Gastrointestinal: No Nausea, No Vomiting, No Abdominal Pain, No Diarrhea, No Constipation, No Melena, No Hematochezia, No Other Genitourinary: No Dysuria, No Frequency, No Incontinence, No Hematuria, No Retention, No Other Musculoskeletal: No other, No neck pain, No shoulder pain, No arm pain, No back pain, No hand pain, No leg pain, No foot pain Skin: No Rash, No Lesions, No Jaundice, No Bruising, No Other Objective Vitals Vital Signs Date Time Temp Pulse Resp B/P (MAP) Pulse Ox O2 Delivery O2 Flow Rate FiO2 05/17/25 10:23 106/63 05/17/25 09:27 97.1 91 18 97 97.1 05/17/25 08:05 Nasal Cannula* 2 28 Intake/Output Intake and Output 05/17/25 07:00 Intake Total 1400 ml Output Total 1900 ml Balance -500 ml Intake Oral 1400 ml Output Urine Total 1900 ml General Appearance: Alert, Oriented X3, Cooperative HEENT: Atraumatic, PERRLA, EOMI, Mucous membr. moist/pink Neck: Supple Lungs: Clear to auscultation, Normal air movement Cardiovascular: Regular rate, Normal S1, Normal S2, No murmurs, Gallops, Rubs Abdomen: Normal bowel sounds, Soft, No tenderness Neuro: Cranial nerves 3-12 NL Psych/Mental Status: Mental status NL Medications Current Medications Medications Dose Ordered Sig/Ivett Route Start Time Stop Time Status Last Admin Dose Admin Mupirocin 1 applic BID EACHNOSTRI 05/15/25 22:00 05/20/25 21:59 05/17/25 10:29 1 APPLIC Ondansetron HCl 4 mg Q4HP PRN IV 05/15/25 11:15 Morphine Sulfate 2 mg Q4HPRN PRN IV 05/15/25 11:15 Furosemide 40 mg BIDD IV 05/15/25 18:00 05/16/25 18:55 40 MG Docusate Sodium 100 mg BIDPRN PRN PO 05/15/25 11:15 Nitroglycerin 0.4 mg Q5MINP PRN SL 05/15/25 11:15 Apixaban 2.5 mg BID PO 05/15/25 22:00 Hold Lisinopril 10 mg DAILY PO 05/16/25 10:00 05/17/25 10:23 10 MG Multivitamins/ Minerals 1 tab DAILY PO 05/16/25 10:00 05/17/25 10:22 1 TAB Pantoprazole Sodium 40 mg DAILY PO 05/16/25 10:00 05/17/25 10:22 40 MG Tramadol HCl 50 mg Q6HPRN PRN PO 05/15/25 11:15 05/17/25 05:57 50 MG Aspirin 81 mg DAILY PO 05/16/25 10:00 05/17/25 10:22 81 MG Ferrous Sulfate 325 mg DAILY PO 05/16/25 10:00 05/17/25 10:22 325 MG Folic Acid 1 mg DAILY PO 05/16/25 10:00 05/17/25 10:22 1 MG Midodrine 5 mg Q6HPRN PRN PO 05/15/25 12:45 Hold Ceftriaxone Sodium 50 ml @ 100 mls/hr DAILY@09 IV 05/17/25 09:00 05/17/25 10:08 100 MLS/HR Laboratory Results Laboratory Tests 05/16/25 05:20 05/16/25 08:43 Urinalysis Test 05/15/25 11:59 Urine Color Light-yellow (Yellow) Urine Clarity Clear (Clear) Urine pH 8.0 (5.0-9.0) Urine Specific [place] 1.016 (1.001-1.035) Urine Protein 2+ (Negative) H Urine Ketones Negative (Negative) Urine Blood 1+ /uL (Negative) H Urine Nitrite Negative (Negative) Urine Bilirubin Negative (Negative) Urine Urobilinogen Normal mg/dL (Negative) Urine Leukocyte Esterase 1+ /uL (Negative) Urine RBC 55 /hpf (0 - 4) Urine Microscopic WBC 56 /HPF (0-5) H Urine Squamous Epithelial Cells Few /hpf (<5) Urine Bacteria Few /hpf (None Seen) H Urine Glucose Normal mg/dL (Normal) Microbiology Microbiology Date/Time Source Procedure Growth Status 05/15/25 21:30 Nose MRSA Screen - Final Methicillin Resistant S.aureus Complete Labs and/or images reviewed: Labs reviewed by me Assessment/Plan Assessment/Plan Acute on chronic systolic diastolic heart failure Acute nasal mucosal irritation Hypertension Urinary tract infection History of kidney stone Continuing current management. Continuing with IV Lasix. Empirically put the patient on Rocephin 1 g IV q.day. Continuing hypertensive medication. CT maxillar/oral negative for any abnormal. This medical document was created using an electronic medical record system with [employer] direct computerized dictation system. Although this document has been carefully reviewed, there may still be some phonetic and typographical errors. These areas are purely typographical due to imperfections of the software programs, and do not reflect any compromise in the patient's medical care. Plan discussed with: Patient My Orders Orders - LETICIA PAULA MD Procedure Category Date Status Time Apply Barrier Cream FIDE 05/16/25 In Process 09:06 Ceftriaxone 1gm/50ml PHA 05/17/25 In Process D5w (Rocephin) 09:00 Complete Blood Count LAB 05/17/25 Logged 08:20 Basic Metabolic Panel LAB 05/17/25 Logged 08:20 Date of Service: May 17, 2025 Billing Provider: LETICIA PAULA MD Common Visit Codes: [id number] INP/OBS CARE(HIGH) LETICIA PAULA MD May 17, 2025 11:33
[2025-05-17 14:25] LABS: Hematocrit 31.6 % (36.0-46.0); Hemoglobin 10.1 g/dL (12.2-16.2); Mean Corpuscular Hemoglobin 26.2 pg (28.0-32.0); Mean Corpuscular Volume 82.0 fL (80.0-100.0); Nucleated Red Blood Cells % 0.2 %
[2025-05-17 14:31] LABS: Potassium 4.6 mmol/L (3.5-5.1); Sodium 138 mmol/L (136-145)
[2025-05-17 14:32] LABS: Anion Gap 6 (5-15); Calcium 9.5 mg/dL (8.7-10.4); Carbon Dioxide 34 mmol/L (20-31); Chloride 98 mmol/L (98-107)
[2025-05-17 14:37] LABS: BUN/Creatinine Ratio 22.0 (10.0-20.0); Blood Urea Nitrogen 20 mg/dL (9-23)
[2025-05-17 14:38] LABS: Glucose 128 mg/dL (74-106)
[2025-05-18 05:00] VITALS: BP 100/60; PULSE 87; RESP 19; TEMP 97.3; O2SAT 96
[2025-05-18 09:00] VITALS: BP 118/74; PULSE 90; RESP 19; TEMP 98.4; O2SAT 97
[2025-05-18 12:49] VITALS: BP 109/69; PULSE 89; RESP 19; TEMP 98.2; O2SAT 98
[2025-05-18 16:41] VITALS: BP 100/66; PULSE 88; RESP 18; TEMP 98.4; O2SAT 100
--- NOTE | 2025-05-18 17:50 | DVHPN2 ---
Subjective The patient is seen and examined at bedside. The patient is still complain of shortness for breath. Reviewed: Care Plan, H&P, Labs, Medications, Previous Orders, Radiology Changes from previous H/P or p: No Changes Eyes: No Pain, No Vision change, No Conjunctivae inflammation, No Eyelid inflammation, No Other, No Redness ENT: No Ear pain, No Ear discharge; Nose pain; No Nose discharge, No Nose congestion, No Mouth pain, No Mouth swelling, No Throat pain, No Throat swelling, No Other Cardiovascular: No Chest Pain, No Palpitations, No Orthopnea, No Paroxysmal Noc. Dyspnea, No Edema, No Lt Headedness, No Other Respiratory: No Cough, No Dry; Shortness of breath; No SOB with excertion, No Wheezing, No Hemoptysis, No Pleuritic Pain, No Sputum, No Other Gastrointestinal: No Nausea, No Vomiting, No Abdominal Pain, No Diarrhea, No Constipation, No Melena, No Hematochezia, No Other Genitourinary: No Dysuria, No Frequency, No Incontinence, No Hematuria, No Retention, No Other Musculoskeletal: No other, No neck pain, No shoulder pain, No arm pain, No back pain, No hand pain, No leg pain, No foot pain Skin: No Rash, No Lesions, No Jaundice, No Bruising, No Other Objective Vitals Vital Signs Date Time Temp Pulse Resp B/P (MAP) Pulse Ox O2 Delivery O2 Flow Rate FiO2 05/18/25 16:41 98.4 88 18 100/66 (77) 100 98.4 05/18/25 08:05 Nasal Cannula* 2 28 Intake/Output Intake and Output 05/18/25 07:00 Intake Total 3150 ml Output Total 400 ml Balance 2750 ml Intake Oral 3100 ml IV Total 50 ml Output Urine Total 400 ml # Bowel Movements 2 General Appearance: Alert, Oriented X3, Cooperative HEENT: Atraumatic, PERRLA, EOMI, Mucous membr. moist/pink Neck: Supple Lungs: Clear to auscultation, Normal air movement Cardiovascular: Regular rate, Normal S1, Normal S2, No murmurs, Gallops, Rubs Abdomen: Normal bowel sounds, Soft, No tenderness Neuro: Cranial nerves 3-12 NL Psych/Mental Status: Mental status NL Medications Current Medications Medications Dose Ordered Sig/Ivett Route Start Time Stop Time Status Last Admin Dose Admin Mupirocin 1 applic BID EACHNOSTRI 05/15/25 22:00 05/20/25 21:59 05/18/25 11:00 1 APPLIC Ondansetron HCl 4 mg Q4HP PRN IV 05/15/25 11:15 Morphine Sulfate 2 mg Q4HPRN PRN IV 05/15/25 11:15 Furosemide 40 mg BIDD IV 05/15/25 18:00 05/18/25 05:42 40 MG Docusate Sodium 100 mg BIDPRN PRN PO 05/15/25 11:15 Nitroglycerin 0.4 mg Q5MINP PRN SL 05/15/25 11:15 Apixaban 2.5 mg BID PO 05/15/25 22:00 Hold Lisinopril 10 mg DAILY PO 05/16/25 10:00 05/18/25 10:55 10 MG Multivitamins/ Minerals 1 tab DAILY PO 05/16/25 10:00 05/18/25 10:56 1 TAB Pantoprazole Sodium 40 mg DAILY PO 05/16/25 10:00 05/18/25 10:56 40 MG Tramadol HCl 50 mg Q6HPRN PRN PO 05/15/25 11:15 05/17/25 05:57 50 MG Aspirin 81 mg DAILY PO 05/16/25 10:00 05/18/25 10:56 81 MG Ferrous Sulfate 325 mg DAILY PO 05/16/25 10:00 05/18/25 10:56 325 MG Folic Acid 1 mg DAILY PO 05/16/25 10:00 05/18/25 10:56 1 MG Midodrine 5 mg Q6HPRN PRN PO 05/15/25 12:45 Hold Ceftriaxone Sodium 50 ml @ 100 mls/hr DAILY@09 IV 05/17/25 09:00 05/18/25 10:46 100 MLS/HR Laboratory Results Laboratory Tests 05/17/25 13:40 Urinalysis Test 05/15/25 11:59 Urine Color Light-yellow (Yellow) Urine Clarity Clear (Clear) Urine pH 8.0 (5.0-9.0) Urine Specific [place] 1.016 (1.001-1.035) Urine Protein 2+ (Negative) H Urine Ketones Negative (Negative) Urine Blood 1+ /uL (Negative) H Urine Nitrite Negative (Negative) Urine Bilirubin Negative (Negative) Urine Urobilinogen Normal mg/dL (Negative) Urine Leukocyte Esterase 1+ /uL (Negative) Urine RBC 55 /hpf (0 - 4) Urine Microscopic WBC 56 /HPF (0-5) H Urine Squamous Epithelial Cells Few /hpf (<5) Urine Bacteria Few /hpf (None Seen) H Urine Glucose Normal mg/dL (Normal) Microbiology Microbiology Date/Time Source Procedure Growth Status 05/15/25 21:30 Nose MRSA Screen - Final Methicillin Resistant S.aureus Complete Labs and/or images reviewed: Labs reviewed by me Assessment/Plan Assessment/Plan Acute on chronic systolic diastolic heart failure Acute nasal mucosal irritation Hypertension Urinary tract infection History of kidney stone Continuing current management. Continuing with IV Lasix. Empirically put the patient on Rocephin 1 g IV q.day. Continuing hypertensive medication. CT maxillar/oral negative. PT to get the patient up and out of bed and ambulate as tolerate. Discharge planning with hospice protocol. This medical document was created using an electronic medical record system with [employer] direct computerized dictation system. Although this document has been carefully reviewed, there may still be some phonetic and typographical errors. These areas are purely typographical due to imperfections of the software programs, and do not reflect any compromise in the patient's medical care. Plan discussed with: Patient Date of Service: May 18, 2025 Billing Provider: LETICIA PAULA MD Common Visit Codes: [id number] INP/OBS CARE(HIGH) LETICIA PAULA MD May 18, 2025 17:50
[2025-05-18 20:00] VITALS: PULSE 89; RESP 18; O2SAT 97
[2025-05-18 21:00] VITALS: BP 113/64; PULSE 89; RESP 19; TEMP 98.2; O2SAT 97
[2025-05-19 01:00] VITALS: BP 134/67; PULSE 101; RESP 17; TEMP 98.6; O2SAT 93
[2025-05-19 05:00] VITALS: BP 108/86; PULSE 71; RESP 18; TEMP 98.7; O2SAT 96
[2025-05-19 05:30] LABS: Hematocrit 33.7 % (36.0-46.0); Hemoglobin 10.7 g/dL (12.2-16.2); Mean Corpuscular Hemoglobin 26.6 pg (28.0-32.0); Mean Corpuscular Volume 83.8 fL (80.0-100.0); Nucleated Red Blood Cells % 0.5 %
[2025-05-19 05:33] LABS: Calcium 9.0 mg/dL (8.7-10.4); Potassium 4.5 mmol/L (3.5-5.1); Sodium 137 mmol/L (136-145)
[2025-05-19 05:34] LABS: Anion Gap 8 (5-15); Chloride 96 mmol/L (98-107)
[2025-05-19 05:36] LABS: Carbon Dioxide 33 mmol/L (20-31)
[2025-05-19 05:39] LABS: BUN/Creatinine Ratio 29.4 (10.0-20.0); Glucose 96 mg/dL (74-106)
[2025-05-19 05:41] LABS: Blood Urea Nitrogen 25 mg/dL (9-23)
[2025-05-19 08:53] VITALS: BP 133/74; PULSE 107; RESP 20; TEMP 97.4; O2SAT 98
[2025-05-19] MEDS: MORPHINE SULFATE INJ 2 MG/ml SYRG IV PRN (10:37)
--- NOTE | 2025-05-19 11:37 | DVHDS2 ---
Discharge Summary Date of Admission May 15, 2025 at 10:57 Date of Discharge: May 19, 2025 Admitting Diagnosis Acute on chronic systolic diastolic heart failure Acute nasal mucosal irritation Hypertension Urinary tract infection History of kidney stone Labs/Diagnostic Data: Laboratory Results Test 05/19/25 04:58 05/16/25 05:20 05/15/25 11:59 05/15/25 09:00 White Blood Count 7.3 10^3/uL (4.4-10.8) Red Blood Count 4.02 10^6/uL (4.0-5.20) Hemoglobin 10.7 g/dL (12.2-16.2) Hematocrit 33.7 % (36.0-46.0) Mean Corpuscular Volume 83.8 fL (80.0-100.0) Mean Corpuscular Hemoglobin 26.6 pg (28.0-32.0) Mean Corpuscular Hemoglobin Concent 31.7 g/dL (32.0-36.0) Red Cell Distribution Width 17.0 % (11.8-14.3) Platelet Count 306 10^3/uL (140-450) Mean Platelet Volume 8.8 fL (6.9-10.8) Neutrophils (%) (Auto) 71.2 % (37.0-80.0) Lymphocytes (%) (Auto) 12.0 % (10.0-50.0) Monocytes (%) (Auto) 9.7 % (0.0-12.0) Eosinophils (%) (Auto) 6.5 % (0.0-7.0) Basophils (%) (Auto) 0.6 % (0.0-2.0) Neutrophils # (Auto) 5.2 10 ^3/uL (1.6-8.6) Lymphocytes # (Auto) 0.9 10 ^3/uL (0.4-5.4) Monocytes # (Auto) 0.7 10 ^3/uL (0-1.3) Eosinophils # (Auto) 0.5 10 ^3/uL (0-0.8) Basophils # (Auto) 0 10 ^3/uL (0-0.2) Nucleated Red Blood Cells 0.5 % Sodium Level 137 mmol/L (136-145) Potassium Level 4.5 mmol/L (3.5-5.1) Chloride Level 96 mmol/L (98-107) Carbon Dioxide Level 33 mmol/L (20-31) Anion Gap 8 (5-15) Blood Urea Nitrogen 25 mg/dL (9-23) Creatinine 0.85 mg/dL (0.550-1.02) Glomerular Filtration Rate Calc 70 mL/min (>90) BUN/Creatinine Ratio 29.4 (10.0-20.0) Serum Glucose 96 mg/dL (74-106) Calcium Level 9.0 mg/dL (8.7-10.4) Total Bilirubin 0.3 mg/dL (0.2-1.0) Aspartate Amino Transferase (AST) 24 U/L (13-40) Alanine Aminotransferase (ALT) 12 U/L (7-40) Alkaline Phosphatase 79 U/L (46-116) Total Protein 7.5 g/dL (5.7-8.2) Albumin 3.8 g/dL (3.2-4.8) Urine Color Light-yellow (Yellow) Urine Clarity Clear (Clear) Urine pH 8.0 (5.0-9.0) Urine Specific [place] 1.016 (1.001-1.035) Urine Protein 2+ (Negative) Urine Ketones Negative (Negative) Urine Blood 1+ /uL (Negative) Urine Nitrite Negative (Negative) Urine Bilirubin Negative (Negative) Urine Urobilinogen Normal mg/dL (Negative) Urine Leukocyte Esterase 1+ /uL (Negative) Urine RBC 55 /hpf (0 - 4) Urine Microscopic WBC 56 /HPF (0-5) Urine Squamous Epithelial Cells Few /hpf (<5) Urine Bacteria Few /hpf (None Seen) Urine Glucose Normal mg/dL (Normal) Troponin I High Sensitivity 8 ng/L (</=34) Other Laboratory Tests 05/19/25 04:58 Brief Hx & Hospital Course: This is 73 years old female with past medical history congestive heart failure, hypertension, hysterectomy, stone removal, came from [facility] with chief complaint of burning nasal discomfort and increased shortness for breath.She reports that her home oxygen setup previously included humidity, but this was recently removed by nursing staff, and since then she has experienced severe nasal burning. The staff attempted to apply vasline ointment intranasally caused more pain, but the patient requested ER evaluation due to worsening symptoms. She denies nasal trauma, chest pain, nausea, or vomiting, but reports dyspnea worse than baseline. She is currently on 2L nasal cannula with oxygen saturation of 98%. The patient was admitted. Workup was done. CT maxilla oral showed no acute process. Her pain improves. Patient also had shortness for breath and was given Lasix. Patient also was found to have presumable urinary tract infection with dysuria and increase frequent of urination. The patient was put on Rocephin 1 g IV q.day. the patient also received diuretic medication. Today she feels better. She back to her baseline of chronic respiratory rate failure with 2 L nasal cannula oxygen and she sat around 96% to 98%. I am going to discharge her home back to [facility] today. Activity as tolerated. Diet low- salt low-cholesterol diet. food service utility worker consulted for resume hospice. Patient will need a gurney transportation home which will be arranged by dialysis social worker. I discussed with dialysis social worker today. Physical exam: HEENT: Normocephalic atraumatic pupils equal react to light and accommodation. Extraocular muscles intact, conjunctiva pink, oropharynx moist, no thrush, no exudate. Lymphatic: No lymphadenopathy Cardiovascular exam: S1, S2 was heard. No murmurs, rubs, gallops Lung: Clear on auscultation bilaterally, no wheeze, rale, rhonchi. GI: Abdominal soft, nondistended, nontenderness, positive bowel sounds. Extremity: No crepitus, cyanosis, edema. Pedal pulses present bilateral. Full range of motion. Skin: Normal turgor, no rash. Psych: Alert, oriented x3. Neurology: No focal deficits, cranial nerve II to XII grossly intact. This medical document was created using an electronic medical record system with [employer] direct computerized dictation system. Although this document has been carefully reviewed, there may still be some phonetic and typographical errors. These areas are purely typographical due to imperfections of the software programs, and do not reflect any compromise in the patient's medical care. Condition at Discharge: Stable Final Diagnosis/Problems List Acute on chronic systolic diastolic heart failure Acute nasal mucosal irritation Hypertension Urinary tract infection History of kidney stone Discharge Disposition: Hospice- Medical Facility Discharge Instruct/Medications Scheduled Apixaban Base (Eliquis), 2.5 MG PO BID, (Reported) Ascorbic Acid (Vitamin C Tablet), 500 MG PO DAILY, (Reported) Aspirin (Aspirin Low Dose), 81 MG PO DAILY, (Reported) Cefpodoxime Proxetil (Cefpodoxime Proxetil), 1 TAB PO BID Diphenhydramine Hcl (Banophen), 50 MG PO DAILY, (Reported) Ferrous Sulfate (Ferosul), 325 MG PO DAILY, (Reported) Folic Acid (Folic Acid), 1 MG PO DAILY, (Reported) Levofloxacin Hemihydrate (Levaquin 500 Mg), 1 TAB PO DAILY Lisinopril (Lisinopril), 10 MG PO DAILY, (Reported) Multiple Vitamins W/ Minerals (Strovite One), 1 TAB PO DAILY, (Reported) Pantoprazole Sodium Sesquihydr (Protonix), 40 MG PO DAILY, (Reported) Scheduled PRN Acetaminophen (Apap), 2 TAB PO Q6HPRN PRN for TEMP GREATER THAN 100, (Reported) Docusate Sodium (Colace), 100 MG PO [id number] PRN for FOR CONSTIPATION, (Reported) Ipratropium-Albuterol (Ipratropium [place]/Albut), 1 NEIL IN Q2HP PRN for SHORTNESS OF BREATH, (Reported) Midodrine HCl (Midodrine Hydrochloride), 5 MG PO Q6HPRN PRN for HYPOTENSION, (Reported) Tramadol Hcl (Tramadol Hcl), 50 MG PO Q6HPRN PRN for SEVERE PAIN, (Reported) Discharge Statement: "Patient was advised to return to the ER or call 911 if any headaches, dizziness, shortness of breath, chest pain, abdominal pain, bleeding, fevers, or worsening of medical condition. Patient was counseled about treatment plan, medications, possible side effects, patientverbalized understanding. All questions were answered to the best of my ability. This discharge took greater then 30 minutes in planning, reviewing documentation, counseling the patient, and discussing with other team members." ASSESSMENT ASSESSMENT Assessment Date of Service: May 19, 2025 Billing Provider: LETICIA PAULA MD Common Visit Codes: [id number] DISCH DAY >30min LETICIA PAULA MD May 19, 2025 11:37
[2025-05-19] MEDS ORDERED: LEVO500T91 PO (11:39)
[2025-05-19 13:04] VITALS: BP 132/83; PULSE 98; RESP 20; TEMP 97.4; O2SAT 99
[2025-05-19 20:00] VITALS: PULSE 100; RESP 19; O2SAT 93
[2025-05-19 21:00] VITALS: BP 134/83; PULSE 100; RESP 19; TEMP 98.6; O2SAT 93
[2025-05-20] VITALS (7 sets, daily range): BP systolic 112–139; BP diastolic 56–80; PULSE 76–98; RESP 17–20; TEMP 97.6–98.9; O2SAT 96–98
--- NOTE | 2025-05-20 11:17 | DVHPN2 ---
Subjective The patient is seen and examined at bedside. No complains today. Waiting for hospice evaluation. Patient was discharge yesterday. Reviewed: Care Plan, H&P, Labs, Medications, Previous Orders, Radiology Changes from previous H/P or p: No Changes Eyes: No Pain, No Vision change, No Conjunctivae inflammation, No Eyelid inflammation, No Other, No Redness ENT: No Ear pain, No Ear discharge; Nose pain; No Nose discharge, No Nose congestion, No Mouth pain, No Mouth swelling, No Throat pain, No Throat swelling, No Other Cardiovascular: No Chest Pain, No Palpitations, No Orthopnea, No Paroxysmal Noc. Dyspnea, No Edema, No Lt Headedness, No Other Respiratory: No Cough, No Dry; Shortness of breath; No SOB with excertion, No Wheezing, No Hemoptysis, No Pleuritic Pain, No Sputum, No Other Gastrointestinal: No Nausea, No Vomiting, No Abdominal Pain, No Diarrhea, No Constipation, No Melena, No Hematochezia, No Other Genitourinary: No Dysuria, No Frequency, No Incontinence, No Hematuria, No Retention, No Other Musculoskeletal: No other, No neck pain, No shoulder pain, No arm pain, No back pain, No hand pain, No leg pain, No foot pain Skin: No Rash, No Lesions, No Jaundice, No Bruising, No Other Objective Vitals Vital Signs Date Time Temp Pulse Resp B/P (MAP) Pulse Ox O2 Delivery O2 Flow Rate FiO2 05/20/25 10:07 113/74 05/20/25 09:05 98.9 89 20 98 98.9 05/20/25 08:18 Nasal Cannula* 2 28 Intake/Output Intake and Output 05/20/25 07:00 Intake Total 1800 ml Output Total 2600 ml Balance -800 ml Intake Oral 1750 ml IV Total 50 ml Output Urine Total 2600 ml General Appearance: Alert, Cooperative HEENT: Atraumatic, PERRLA, EOMI, Mucous membr. moist/pink Neck: Supple Lungs: Clear to auscultation, Normal air movement Cardiovascular: Regular rate, Normal S1, Normal S2, No murmurs, Gallops, Rubs Abdomen: Normal bowel sounds, Soft, No tenderness Neuro: Cranial nerves 3-12 NL Psych/Mental Status: Mental status NL Medications Current Medications Medications Dose Ordered Sig/Ivett Route Start Time Stop Time Status Last Admin Dose Admin Mupirocin 1 applic BID EACHNOSTRI 05/15/25 22:00 05/20/25 21:59 05/20/25 10:14 1 APPLIC Ondansetron HCl 4 mg Q4HP PRN IV 05/15/25 11:15 Morphine Sulfate 2 mg Q4HPRN PRN IV 05/15/25 11:15 05/19/25 10:37 2 MG Furosemide 40 mg BIDD IV 05/15/25 18:00 05/19/25 18:06 40 MG Docusate Sodium 100 mg BIDPRN PRN PO 05/15/25 11:15 Nitroglycerin 0.4 mg Q5MINP PRN SL 05/15/25 11:15 Apixaban 2.5 mg BID PO 05/15/25 22:00 Hold Lisinopril 10 mg DAILY PO 05/16/25 10:00 05/20/25 10:07 10 MG Multivitamins/ Minerals 1 tab DAILY PO 05/16/25 10:00 05/20/25 10:04 1 TAB Pantoprazole Sodium 40 mg DAILY PO 05/16/25 10:00 05/20/25 10:04 40 MG Tramadol HCl 50 mg Q6HPRN PRN PO 05/15/25 11:15 05/17/25 05:57 50 MG Aspirin 81 mg DAILY PO 05/16/25 10:00 05/20/25 10:04 81 MG Ferrous Sulfate 325 mg DAILY PO 05/16/25 10:00 05/20/25 10:05 325 MG Folic Acid 1 mg DAILY PO 05/16/25 10:00 05/20/25 10:04 1 MG Midodrine 5 mg Q6HPRN PRN PO 05/15/25 12:45 Hold Ceftriaxone Sodium 50 ml @ 100 mls/hr DAILY@09 IV 05/17/25 09:00 05/20/25 10:14 100 MLS/HR Laboratory Results Laboratory Tests 05/19/25 04:58 Urinalysis Test 05/15/25 11:59 Urine Color Light-yellow (Yellow) Urine Clarity Clear (Clear) Urine pH 8.0 (5.0-9.0) Urine Specific [place] 1.016 (1.001-1.035) Urine Protein 2+ (Negative) H Urine Ketones Negative (Negative) Urine Blood 1+ /uL (Negative) H Urine Nitrite Negative (Negative) Urine Bilirubin Negative (Negative) Urine Urobilinogen Normal mg/dL (Negative) Urine Leukocyte Esterase 1+ /uL (Negative) Urine RBC 55 /hpf (0 - 4) Urine Microscopic WBC 56 /HPF (0-5) H Urine Squamous Epithelial Cells Few /hpf (<5) Urine Bacteria Few /hpf (None Seen) H Urine Glucose Normal mg/dL (Normal) Microbiology Microbiology Date/Time Source Procedure Growth Status 05/15/25 21:30 Nose MRSA Screen - Final Methicillin Resistant S.aureus Complete Labs and/or images reviewed: Labs reviewed by me Assessment/Plan Assessment/Plan Acute on chronic systolic diastolic heart failure Acute nasal mucosal irritation Hypertension Urinary tract infection History of kidney stone Continuing current management. Continuing with IV Lasix. Empirically put the patient on Rocephin 1 g IV q.day. Continuing hypertensive medication. CT maxillar/oral negative. PT to get the patient up and out of bed and ambulate as tolerate. DW Dr Pang, patient is not a candidate for hospice. Will discharge patient home today to [facility] with Reyes carranza. This medical document was created using an electronic medical record system with [employer] direct computerized dictation system. Although this document has been carefully reviewed, there may still be some phonetic and typographical errors. These areas are purely typographical due to imperfections of the software programs, and do not reflect any compromise in the patient's medical care. Plan discussed with: Patient My Orders Orders - LETICIA PAULA MD Procedure Category Date Status Time Discharge DISCHARGE 05/19/25 Transmitted 11:58 * Newspaper Stuffer CONS 05/19/25 Transmitted Consult Mrsa Screen ALESSANDRO 05/19/25 Uncollected 12:36 Mrsa Screen ALESSANDRO 05/19/25 In Process 15:39 Date of Service: May 20, 2025 Billing Provider: LETICIA PAULA MD Common Visit Codes: [id number] INP/OBS CARE(HIGH) LETICIA PAULA MD May 20, 2025 11:17
[2025-05-21 01:00] VITALS: BP 126/87; PULSE 101; RESP 18; TEMP 97.6; O2SAT 98
[2025-05-21 05:00] VITALS: BP 122/81; PULSE 99; RESP 16; TEMP 97.9; O2SAT 99
[2025-05-21 08:00] VITALS: PULSE 97; RESP 18; O2SAT 95
[2025-05-21 08:30] VITALS: BP 123/84; PULSE 96; RESP 16; TEMP 99.3; O2SAT 97
[2025-05-21 12:30] VITALS: BP 112/73; PULSE 99; RESP 16; TEMP 98; O2SAT 95
[2025-05-21] MEDS: DOXYCYCLINE 100 MG TAB/CAP PO ONE (13:26)
[2025-05-21 16:30] VITALS: BP 119/76; PULSE 58; RESP 20; TEMP 98.2; O2SAT 98
--- NOTE | 2025-05-21 17:22 | DVHPN2 ---
Subjective no complaints/feels good Reviewed: Care Plan, H&P, Labs, Medications, Previous Orders, Radiology Changes from previous H/P or p: No Changes Eyes: No Pain, No Vision change, No Conjunctivae inflammation, No Eyelid inflammation, No Other, No Redness ENT: No Ear pain, No Ear discharge; Nose pain; No Nose discharge, No Nose congestion, No Mouth pain, No Mouth swelling, No Throat pain, No Throat swelling, No Other Cardiovascular: No Chest Pain, No Palpitations, No Orthopnea, No Paroxysmal Noc. Dyspnea, No Edema, No Lt Headedness, No Other Respiratory: No Cough, No Dry; Shortness of breath; No SOB with excertion, No Wheezing, No Hemoptysis, No Pleuritic Pain, No Sputum, No Other Gastrointestinal: No Nausea, No Vomiting, No Abdominal Pain, No Diarrhea, No Constipation, No Melena, No Hematochezia, No Other Genitourinary: No Dysuria, No Frequency, No Incontinence, No Hematuria, No Retention, No Other Musculoskeletal: No other, No neck pain, No shoulder pain, No arm pain, No back pain, No hand pain, No leg pain, No foot pain Skin: No Rash, No Lesions, No Jaundice, No Bruising, No Other Objective Vitals Vital Signs Date Time Temp Pulse Resp B/P (MAP) Pulse Ox O2 Delivery O2 Flow Rate FiO2 05/21/25 10:40 123/81 05/21/25 08:30 99.3 96 16 97 99.3 05/20/25 20:00 Nasal Cannula* 2 28 Intake/Output Intake and Output 05/21/25 06:59 Intake Total 900 ml Output Total 2250 ml Balance -1350 ml Intake Oral 850 ml IV Total 50 ml Output Urine Total 2250 ml General Appearance: Alert, Cooperative HEENT: Atraumatic, PERRLA, EOMI, Mucous membr. moist/pink Neck: Supple Lungs: Clear to auscultation, Normal air movement Cardiovascular: Regular rate, Normal S1, Normal S2, No murmurs, Gallops, Rubs Abdomen: Normal bowel sounds, Soft, No tenderness Neuro: Normal speech, Cranial nerves 3-12 NL Psych/Mental Status: Mental status NL Medications Current Medications Medications Dose Ordered Sig/Ivett Route Start Time Stop Time Status Last Admin Dose Admin Docusate Sodium 100 mg BIDPRN PRN PO 05/15/25 11:15 Apixaban 2.5 mg BID PO 05/15/25 22:00 Hold Lisinopril 10 mg DAILY PO 05/16/25 10:00 05/21/25 10:40 10 MG Pantoprazole Sodium 40 mg DAILY PO 05/16/25 10:00 05/21/25 10:40 40 MG Ferrous Sulfate 325 mg DAILY PO 05/16/25 10:00 05/21/25 10:40 325 MG Folic Acid 1 mg DAILY PO 05/16/25 10:00 05/21/25 10:40 1 MG Doxycycline Monohydrate 100 mg Q12HR PO 05/21/25 22:00 Furosemide 20 mg DAILY PO 05/22/25 10:00 Laboratory Results Laboratory Tests 05/19/25 04:58 Urinalysis Test 05/15/25 11:59 Urine Color Light-yellow (Yellow) Urine Clarity Clear (Clear) Urine pH 8.0 (5.0-9.0) Urine Specific [place] 1.016 (1.001-1.035) Urine Protein 2+ (Negative) H Urine Ketones Negative (Negative) Urine Blood 1+ /uL (Negative) H Urine Nitrite Negative (Negative) Urine Bilirubin Negative (Negative) Urine Urobilinogen Normal mg/dL (Negative) Urine Leukocyte Esterase 1+ /uL (Negative) Urine RBC 55 /hpf (0 - 4) Urine Microscopic WBC 56 /HPF (0-5) H Urine Squamous Epithelial Cells Few /hpf (<5) Urine Bacteria Few /hpf (None Seen) H Urine Glucose Normal mg/dL (Normal) Microbiology Microbiology Date/Time Source Procedure Growth Status 05/19/25 15:39 Nose MRSA Screen - Final Methicillin Resistant S.aureus Complete Labs and/or images reviewed: Labs reviewed by me, Image(s) reviewed by me Assessment/Plan Assessment/Plan acute on chronic diastolic chf- normal echo morbid obesity chronic hypoxic respiratory failure o2 dependent awaiting placement mrsa nares- treat h/o nephrolithiasis- stable diverticulosis stable Plan discussed with: Patient, Other My Orders Orders - PAPO IRVIN MD Procedure Category Date Status Time Doxycycline Tablet PHA 05/21/25 In Process (Vibramycin Tablet) 22:00 Furosemide Tablet PHA 05/22/25 In Process (Lasix Tablet) 10:00 Date of Service: May 21, 2025 Billing Provider: PAPO IRVIN MD Common Visit Codes: [id number] INP/OBS CARE(MOD) PAPO IRVIN MD May 21, 2025 17:22
[2025-05-21] MEDS ORDERED: DOXYCYCLINE 100 MG TAB/CAP PO SCH (22:00)
[2025-05-22] MEDS ORDERED: FUROSEMIDE 20 MG TAB PO SCH (10:00)
== END 2025-05-21 20:16 | disposition home or self-care (01) | DRG 291 ==
LOC: EDBD 06:54 → ER 06:54 → EDUNIT# 06:54 → OVERFLOW 10:57 → ER 11:04 → EAST 16:51
PROVIDERS: ADMIT Internal Medicine; ATTEND Internal Medicine
DX: I11.0 Hypertensive heart disease with heart failure (principal); I50.43 Acute on chronic combined systolic (congestive) and diastolic (congestive) heart failure; Z68.43 Body mass index [BMI] 50.0-59.9, adult; N39.0 Urinary tract infection, site not specified; J96.11 Chronic respiratory failure with hypoxia; Z99.81 Dependence on supplemental oxygen; E66.01 Morbid (severe) obesity due to excess calories; K57.30 Diverticulosis of large intestine without perforation or abscess without bleeding; J98.4 Other disorders of lung; Z90.710 Acquired absence of both cervix and uterus; Z87.442 Personal history of urinary calculi; Z88.5 Allergy status to narcotic agent
CPT/HCPCS: 36415; 70486; 71045; 80048; 80053; 81001; 84484; 85025; 87081; 93306; 94640; 96374; G0378

== ENCOUNTER 2025-06-17 08:52 | Inpatient (IN) | payer OTHER, MEDICARE, MEDICAID ==
[~2025-06-17] VITALS: Ht 170.2 cm; Wt 176.0 kg
[~2025-06-17 08:52] MED LIST changes: +LEVO500T91 PO
--- NOTE | 2025-06-17 09:15 | ED.PDOC ---
HPI Comments 80 y/o F, BIBA, with PMHx of TN, HTN, and CHF presents to the ED for CC of chest pain. 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 Patient reports, pain to be 10/10 and stabbing in nature . In route to the ED, patient was given x2 Nitroglycerin and 324mg of Aspirin with no relief of symptoms. Patient is bedridden and currently on hospice. Patient denies headache, nausea, vomiting, s hortness of breath, numbness, or weakness. No other symptoms or modifying factors are present at this time. Chief Complaint: Chest Pain Time Seen by MD: 09:00 Reviewed Notes: Nurses Notes, Analytical Engineer Notes, Medications, Allergies Allergies: Coded Allergies: Codeine (Verified Allergy, Unknown, 08/10/24) Home Meds Active Scripts Levofloxacin Hemihydrate (LEVAQUIN 500 MG) 500 Mg Tab, 1 TAB PO DAILY, #7 TAB Prov:LETICIA PAULA MD 05/19/25 Cefpodoxime Proxetil (Cefpodoxime Proxetil) 200 Mg Tab, 1 TAB PO BID for 10 Days, #20 TAB Prov:ARNAUD CASTRO MD 10/03/24 Reported Medications Ipratropium-Albuterol (Ipratropium Corona/Albut) 1 Neil Neil, 1 NEIL IN Q2HP PRN for SHORTNESS OF BREATH, ML 08/12/24 Docusate Sodium (Colace) 100 Mg Cap, 100 MG PO [id number] PRN for FOR CONSTIPATION, CAP 08/12/24 Acetaminophen (Apap) 325 Mg Tab, 2 TAB PO Q6HPRN PRN for TEMP GREATER THAN 100, TAB 08/12/24 Midodrine HCl (Midodrine Hydrochloride) 5 Mg Tab, 5 MG PO Q6HPRN PRN for HYPOTENSION, TAB 08/12/24 Tramadol Hcl (Tramadol Hcl) 50 Mg Tab, 50 MG PO Q6HPRN PRN for SEVERE PAIN, TAB 08/12/24 Lisinopril (Lisinopril) 20 Mg Tab, 10 MG PO DAILY, TAB 08/12/24 Pantoprazole Sodium Sesquihydr (Protonix) 40 Mg Tab, 40 MG PO DAILY, #30 TAB 08/12/24 Multiple Vitamins W/ Minerals (Strovite One) Tab, 1 TAB PO DAILY, TAB 08/12/24 Folic Acid (Folic Acid) 1 Mg Tab, 1 MG PO DAILY, TAB 08/12/24 Ferrous Sulfate (Ferosul) 325 Mg Tab, 325 MG PO DAILY, TAB 08/12/24 Apixaban Base (ELIQUIS) 2.5 Mg Tab, 2.5 MG PO BID, TAB 08/12/24 Diphenhydramine Hcl (BANOPHEN) 50 Mg Cap, 50 MG PO DAILY, CAP 08/12/24 Aspirin (Aspirin Low Dose) 81 Mg Chw, 81 MG PO DAILY, TAB.CHEW 08/12/24 Ascorbic Acid (VITAMIN C TABLET) 500 Mg Tb, 500 MG PO DAILY, TAB 08/12/24 Information Source: Patient, Emergency Med Personnel Mode of Arrival: EMS Severity: Moderate Timing: Hours Duration: Since onset Prehospital treatment: None Location: Chest (L) Radiation: No Radiation Quality: Stabbing Onset: At Rest Cardiac Risk Factors: HTN PE Risk Factors: None History of: TN Modifying Factors: Nothing Associated Signs and Symptoms: None Past Medical History PAST MEDICAL HISTORY: CHF, HTN, [place] Surgical History: Hysterectomy 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 Family History Family History: Reviewed,noncontributory to illness Social History Smoker: Non-Smoker Alcohol: Denies ETOH Use Drugs: Denies Drug Use Lives In: Jail Constitutional: denies: chills, diaphoresis, fatigue, fever, malaise, sweats, weakness, others EENTM: denies: blurred vision, double vision, ear bleeding, ear discharge, ear drainage, ear pain, ear ringing, eye pain, eye redness, hearing loss, mouth pain, mouth swelling, nasal discharge, nose bleeding, nose congestion, nose pain, photophobia, tearing, throat pain, throat swelling, voice changes, others Respiratory: denies: cough, hemoptysis, orthopnea, SOB at rest, shortness of breath, SOB with excertion, stridor, wheezing, others Cardiovascular: reports: chest pain; denies: dizzy spells, diaphoresis, Dyspnea on exertion, edema, irregular heart beat, left arm pain, lightheadedness, palpitations, PND, syncope, others Gastrointestinal: denies: abdomen distended, abdominal pain, blood streaked bowels, constipated, diarrhea, dysphagia, difficulty swallowing, hematemesis, melena, nausea, poor appetite, poor fluid intake, rectal bleeding, rectal pain, vomiting, others Genitourinary: denies: abnormal vagina bleeding, burning, dyspareunia, dysuria, flank pain, frequency, hematuria, incontinence, pain, , vagina discharge, urgency, others Neurological: denies: dizziness, fainting, headache, left sided numbness, left sided weakness, numbness, paresthesia, pre-existing deficit, right sided numbness, right sided weakness, seizure, speech problems, tingling, tremors, weakness, others Musculoskeletal: denies: back pain, gout, joint pain, joint swelling, muscle pain, muscle stiffness, neck pain, others Integumetry: denies: bruises, change in color, change in hair/nails, dryness, laceration, lesions, lumps, rash, wounds, others Allergic/Immunocompromised: denies: Difficulty Healing, Frequent Infections, Hives, Itching, others Hematologic/Lymphatic: denies: anemia, blood clots, easy bleeding, easy bruising, swollen glands, others Endocrine: denies: excessive hunger, excessive sweating, excessive thirst, excessive urination, flushing, intolerance to cold, intolerance to heat, unexplained weight gain, unexplained weight loss, others Psychiatric: denies: anxiety, bipolar disorder, depression, hopeless, panic disorder, schizophrenia, sleepless, suicidal, others All Other Systems: Reviewed and Negative Physical Exam General Appearance: No Apparent Distress, Obese, Other (morbidly obese, chr onically ill appearing) HEENT: Normal ENT Inspection, Pharynx Normal Neck: Full Range of Motion, Non-Tender, Normal, Normal Inspection Respiratory: Chest Non-Tender, Lungs Clear, No Accessory Muscle Use, No Respiratory Distress, Normal Breath Sounds Cardiovascular: No Edema, No Murmur, No Gallop, Normal Peripheral Pulses, Regular Rate/Rhythm Breast Exam: Deferred Gastrointestinal: No Organomegaly, Non Tender, No Pulsatile Mass, Normal Bowel Sounds, Soft Genitalia: Deferred Pelvic: Deferred Rectal: Deferred Extremities: No calf tenderness, Normal capillary refill, Normal inspection, Normal range of motion, Non-tender, No pedal edema Musculoskeletal : Apperance: Normal Neurologic: Alert, gripper attacher II-XII nml as Tested, No Motor Deficits, Normal Affect, Normal Mood, No Sensory Deficits Cerebellar Function: Normal Reflexes: Normal Skin: Dry, Normal Color, Warm Lymphatic: No Adenopathy Was a procedure done? Was a procedure done?: No CP Differential Dx Differential Diagnosis: Angina Differential Diagnosis: HTN Essential, HTN Accelerated Differential Diagnosis: Chest Wall Pain, Costochondritis, Myocardial Infarction X-Ray, Labs, Meds, VS Vital Signs Date Time Temp Pulse Resp B/P (MAP) Pulse Ox O2 Delivery O2 Flow Rate FiO2 06/17/25 11:00 94 27 159/90 (113) 98 06/17/25 10:12 99 06/17/25 09:10 97.9 111 28 156/88 (110) 95 97.9 06/17/25 08:57 97.9 110 18 208/143 98 97.9 06/17/25 08:55 121 Lab Test 06/17/25 11:00 06/17/25 09:40 Range/Units White Blood Count 8.7 4.4-10.8 10^3/uL Red Blood Count 4.17 4.0-5.20 10^6/uL Hemoglobin 10.6 L 12.2-16.2 g/dL Hematocrit 32.8 L 36.0-46.0 % Mean Corpuscular Volume 78.7 L 80.0-100.0 fL Mean Corpuscular Hemoglobin 25.5 L 28.0-32.0 pg Mean Corpuscular Hemoglobin Concent 32.4 32.0-36.0 g/dL Red Cell Distribution Width 17.8 H 11.8-14.3 % Platelet Count 323 140-450 10^3/uL Mean Platelet Volume 8.5 6.9-10.8 fL Neutrophils (%) (Auto) 83.6 H 37.0-80.0 % Lymphocytes (%) (Auto) 8.7 L 10.0-50.0 % Monocytes (%) (Auto) 6.2 0.0-12.0 % Eosinophils (%) (Auto) 0.6 0.0-7.0 % Basophils (%) (Auto) 0.9 0.0-2.0 % Neutrophils # (Auto) 7.3 1.6-8.6 10 ^3/uL Lymphocytes # (Auto) 0.8 0.4-5.4 10 ^3/uL Monocytes # (Auto) 0.5 0-1.3 10 ^3/uL Eosinophils # (Auto) 0.1 0-0.8 10 ^3/uL Basophils # (Auto) 0.1 0-0.2 10 ^3/uL Nucleated Red Blood Cells 0.3 % Sodium Level 142 136-145 mmol/L Potassium Level 3.8 3.5-5.1 mmol/L Chloride Level 102 98-107 mmol/L Carbon Dioxide Level 34 H 20-31 mmol/L Anion Gap 6 5-15 Blood Urea Nitrogen 6 L 9-23 mg/dL Creatinine 0.75 0.550-1.02 mg/dL Glomerular Filtration Rate Calc 81 >90 mL/min BUN/Creatinine Ratio 8.0 L 10.0-20.0 Serum Glucose 111 H 74-106 mg/dL Calcium Level 8.9 8.7-10.4 mg/dL Troponin I High Sensitivity 17 14 </=34 ng/L [place] [id number] Ph: [phone] DIAGNOSTIC IMAGING Diagnostic Imaging Report : [id number] Signed PATIENT: KAIN POLLOCK ACCT: [id number] UNIT: [id number] : 1945 LOC: ER ROOM / BED: / AGE / SEX: 80 / F ADM STATUS: REG ER SERVICE 2 ORDERING PHYSICIAN: SUZANNE STEVENSON MD PROCEDURE(s): CXRP - CHEST PORTABLE REASON: cp ORDER NUMBER(s): [id number], ACCESSION NUMBER(s): [id number] EXAM: XY CHEST PORTABLE Indication: cp Technique: Single frontal view of the chest was obtained Comparison: XY CHEST PORTABLE on DOS: 05/15/25, XY CHEST PORTABLE on DOS: 09/30/24, XY CHEST PORTABLE on DOS: 08/17/24, XY CHEST PORTABLE on DOS: 08/12/24, XY CHEST PORTABLE on DOS: 08/10/24 FINDINGS: Lines and Tubes: None Lungs: Diffuse interstitial opacities. Pleura: No effusion. No pneumothorax. Cardiomediastinal contours: Unremarkable. Atherosclerotic vascular calcifications of the thoracic aorta are noted. Bones: No acute osseous abnormality. IMPRESSION: Pulmonary edema. ATED BY: CHRISTIE WELLS MD DICTATED DATE/TIME: 06/17/25957 SIGNED BY: CHRISTIE WELLS MD SIGNED DATE/TIME: 06/17/25957 CC: Time of 1ST Reevaluation: 09:30 Reevaluation 1ST: Unchanged Patient Education/Counseling: Diagnosis, Treatment Family Education/Counseling: No Family Present SEPSIS Sepsis Screen Date sepsis recognized/suspect: Jun 17, 2025 Time Sepsis recognized/suspect: 852 Recent Procedure: No On Antibiotic Therapy: No Respiratory Rate >20: No Heart Rate >90: Yes Temp<36 C (96.8 F) or >38.3 C: No SBP <90 or MAP <65 mmHG: No New Acute Mental Status Change: No Is the patient on CPAP, BIPAP,: No Physician Orders Electrocardigram (06/17/25 08:56) Troponin-I Hs (06/17/25 11:56) Electrocardigram (06/17/25 09:56) Electrocardigram (06/17/25 11:56) Chest Portable (06/17/25 09:13) Insert Midline (06/17/25 10:53) Vital Signs Date Time Temp Pulse Resp B/P (MAP) Pulse Ox O2 Delivery O2 Flow Rate FiO2 06/17/25 11:00 94 27 159/90 (113) 98 06/17/25 10:12 99 06/17/25 09:10 97.9 111 28 156/88 (110) 95 97.9 06/17/25 08:57 97.9 110 18 208/143 98 97.9 06/17/25 08:55 121 Laboratory Tests Test 06/17/25 11:00 White Blood Count 8.7 10^3/uL (4.4-10.8) Departure 1 Departure Time of Disposition: 11:46 (Patient presented with chest pain that was concerning for possible STEMI, ACS, PE, Pneumonia, Muscle Strain, COPD, Dissection. Data: 1. I ordered and reviewed the result of at least 3 labs including a CBC, BMP, and Troponin. 2. I independently interpreted the following tests: EKG which shows sinus arrhythmia and Chest X-ray which shows benign chest _.Risk:This patient has a high risk of morbidity due to further diagnostic testing or treatment and may suffer from an acute cardiac or respiratory disorder. Workup reveals concern for ACS and patient should be admitted for further workup and possible expert consultation. ) Impression: Primary Impression: Acute chest pain Additional Impression: Shortness of breath Disposition: ADMITTED INPATIENT Admit to: Tele Condition: Guarded Critical Care Note Critical Care Time?: Yes Critical care comment: Acute chest pain Authorized and Performed by: Suzanne Stevenson MD Total critical care time: Approximately 36 minutes Due to a high probability of clinically significant, life threatening deterioration, the patient required my highest level of preparedness to intervene emergently and I personally spent this critical care time directly and personally managing the patient. This critical care time included obtaining a history; examining the patient; pulse oximetry; ordering and review of studies; arranging urgent treatment with development of a management plan; evaluation of patient's response to treatment; frequent reassessment; and, discussions with other providers. This critical care time was performed to assess and manage the high probability of imminent, life-threatening deterioration that could result in multi-organ failure. It was exclusive of separately billable procedures and treating other patients and teaching time. Please see my other sections and the rest of the note for further information on patient assessment and treatment. Stability Stability form required: No Heart Score Heart Score: Heart Score Response (Comments) Value History Moderate Suspicious 1 EKG N/A 0 Age >65 2 Risk Factors 1 or 2 risk factors 1 Troponin N/A 0 Total 4 I personally scribed for SUZANNE STEVENSON MD ([email or web address]) on 06/17/25 at 09:15. Electronically submitted by India Briggs ([email or web address]). I personally scribed for SUZANNE STEVENSON MD ([email or web address]) on 06/17/25 at 10:05. Electronically submitted by India Briggs ([email or web address]). SUZANNE STEVENSON MD Jun 17, 2025 09:15
--- NOTE | 2025-06-17 10:00 | DVH ---
EXAM: XY CHEST PORTABLE Indication: cp Technique: Single frontal view of the chest was obtained Comparison: XY CHEST PORTABLE on DOS: 05/15/25, XY CHEST PORTABLE on DOS: 09/30/24, XY CHEST PORTABLE on DOS: 08/17/24, XY CHEST PORTABLE on DOS: 08/12/24, XY CHEST PORTABLE on DOS: 08/10/24 FINDINGS: Lines and Tubes: None Lungs: Diffuse interstitial opacities. Pleura: No effusion. No pneumothorax. Cardiomediastinal contours: Unremarkable. Atherosclerotic vascular calcifications of the thoracic ao rta are noted. Bones: No acute osseous abnormality. IMPRESSION: Pulmonary edema.
[2025-06-17 11:15] LABS: Anion Gap 6 (5-15); Chloride 102 mmol/L (98-107); Potassium 3.8 mmol/L (3.5-5.1); Sodium 142 mmol/L (136-145)
[2025-06-17 11:16] LABS: Calcium 8.9 mg/dL (8.7-10.4)
[2025-06-17 11:19] LABS: Carbon Dioxide 34 mmol/L (20-31)
[2025-06-17 11:20] LABS: Hemoglobin 10.6 g/dL (12.2-16.2)
[2025-06-17 11:21] LABS: BUN/Creatinine Ratio 8.0 (10.0-20.0); Hematocrit 32.8 % (36.0-46.0); Mean Corpuscular Hemoglobin 25.5 pg (28.0-32.0); Mean Corpuscular Volume 78.7 fL (80.0-100.0); Nucleated Red Blood Cells % 0.3 %
[2025-06-17 11:29] LABS: Blood Urea Nitrogen 6 mg/dL (9-23); Glucose 111 mg/dL (74-106)
[2025-06-17 12:17] VITALS: BP 139/79; PULSE 98; RESP 22; TEMP 97.7; O2SAT 100
[2025-06-17 13:00] VITALS: PULSE 99; RESP 24; O2SAT 98
[2025-06-17 13:30] LABS: Urine Protein, UAD 2+ (Negative)
[2025-06-17] MEDS ORDERED: ACETAMINOPHEN 325 MG TAB PO PRN (16:15)
[2025-06-17] MEDS ORDERED: MORPHINE SULFATE INJ 2 MG/ml SYRG IV PRN (16:15)
[2025-06-17] MEDS ORDERED: NITROGLYCERIN 0.4 MG SL TAB SL PRN ×2 (16:15)
[2025-06-17] MEDS ORDERED: MORPHINE SULFATE 4 MG/ML SYR/VIAL IV PRN (16:15)
--- NOTE | 2025-06-17 16:17 | DVHHP2 ---
History of Present Illness Reason for Visit: Chest pain History of Present Illness Viridiana Guido is a 72-year-old female with past medical history of CHF, hypertension, [place], hysterectomy, nephrolithiasis with removal, and resident of [facility] who presents to the ED with chest pain that started today 8/10 tightness and intermittent.. Patient reports that she does not use oxygen at SNF. She also reports that she does not walk. Patient denies any recent trauma or injury, recent sick contacts, recent ingestion of spoiled food, recent travels, lightheadedness, weakness, dizziness, abdominal pain, nausea, vomiting, diarrhea, or urinary symptoms. Cardiovascular: CHF, HTN, OH Past Medical History Nephrolithiasis with removal Past Surgical History: Hysterectomy Smoke: No ALCOHOL: none Drugs: None Lives: [facility] Domestic Violence: Neg Review of Systems Cardiovascular: Chest Pain Allergies: Coded Allergies: Codeine (Verified Allergy, Unknown, 08/10/24) Exam Vital Signs Vital Signs Date Time Temp Pulse Resp B/P (MAP) Pulse Ox O2 Delivery O2 Flow Rate FiO2 06/17/25 15:00 87 20 140/75 (96) 99 06/17/25 13:00 Nasal Cannula* 2 28 06/17/25 09:10 97.9 97.9 General Appearance: Alert, Cooperative, No acute distress HEENT: Atraumatic, PERRLA, EOMI, Mucous membr. moist/pink Respiratory: Clear to auscultation, Normal air movement Cardiovascular: Normal S1, Normal S2 Abdominal: Normal bowel sounds, Soft Extremities: No tenderness/swelling Neuro: Normal speech, Normal tone, Sensation intact Psych/Mental Status: Mental status NL, Mood NL Labs/Xrays Labs Test 06/17/25 13:10 06/17/25 12:40 06/17/25 11:00 Range/Units Urine Color Yellow Yellow Urine Clarity Turbid H Clear Urine pH 6.0 5.0-9.0 Urine Specific [place] 1.017 1.001-1.035 Urine Protein 2+ H Negative Urine Ketones Negative Negative Urine Blood Trace H Negative /uL Urine Nitrite Negative Negative Urine Bilirubin Negative Negative Urine Urobilinogen Normal Negative mg/dL Urine Leukocyte Esterase Negative Negative /uL Urine RBC 30 0 - 4 /hpf Urine Microscopic WBC 4 0-5 /HPF Urine Squamous Epithelial Cells Few <5 /hpf Urine Bacteria None seen None Seen /hpf Urine Hyaline Casts Mod 0 - 2 /lpf Urine Mucus Few None Seen Urine Glucose Normal Normal mg/dL Troponin I High Sensitivity 12 </=34 ng/L White Blood Count 8.7 4.4-10.8 10^3/uL Red Blood Count 4.17 4.0-5.20 10^6/uL Hemoglobin 10.6 L 12.2-16.2 g/dL Hematocrit 32.8 L 36.0-46.0 % Mean Corpuscular Volume 78.7 L 80.0-100.0 fL Mean Corpuscular Hemoglobin 25.5 L 28.0-32.0 pg Mean Corpuscular Hemoglobin Concent 32.4 32.0-36.0 g/dL Red Cell Distribution Width 17.8 H 11.8-14.3 % Platelet Count 323 140-450 10^3/uL Mean Platelet Volume 8.5 6.9-10.8 fL Neutrophils (%) (Auto) 83.6 H 37.0-80.0 % Lymphocytes (%) (Auto) 8.7 L 10.0-50.0 % Monocytes (%) (Auto) 6.2 0.0-12.0 % Eosinophils (%) (Auto) 0.6 0.0-7.0 % Basophils (%) (Auto) 0.9 0.0-2.0 % Neutrophils # (Auto) 7.3 1.6-8.6 10 ^3/uL Lymphocytes # (Auto) 0.8 0.4-5.4 10 ^3/uL Monocytes # (Auto) 0.5 0-1.3 10 ^3/uL Eosinophils # (Auto) 0.1 0-0.8 10 ^3/uL Basophils # (Auto) 0.1 0-0.2 10 ^3/uL Nucleated Red Blood Cells 0.3 % Sodium Level 142 136-145 mmol/L Potassium Level 3.8 3.5-5.1 mmol/L Chloride Level 102 98-107 mmol/L Carbon Dioxide Level 34 H 20-31 mmol/L Anion Gap 6 5-15 Blood Urea Nitrogen 6 L 9-23 mg/dL Creatinine 0.75 0.550-1.02 mg/dL Glomerular Filtration Rate Calc 81 >90 mL/min BUN/Creatinine Ratio 8.0 L 10.0-20.0 Serum Glucose 111 H 74-106 mg/dL Calcium Level 8.9 8.7-10.4 mg/dL SEPSIS Sepsis Screen Date sepsis recognized/suspect: Jun 17, 2025 Time Sepsis recognized/suspect: 1226 Recent Procedure: No On Antibiotic Therapy: No Respiratory Rate >20: No Heart Rate >90: Yes Temp<36 C (96.8 F) or >38.3 C: No SBP <90 or MAP <65 mmHG: No New Acute Mental Status Change: No Is the patient on CPAP, BIPAP,: No Physician Orders Electrocardigram (06/17/25 08:56) Electrocardigram (06/17/25 09:56) Electrocardigram (06/17/25 11:56) Chest Portable (06/17/25 09:13) Insert Midline (06/17/25 10:53) Isaacs Catheters (06/17/25 ) Vital Signs Date Time Temp Pulse Resp B/P (MAP) Pulse Ox O2 Delivery O2 Flow Rate FiO2 06/17/25 15:00 87 20 140/75 (96) 99 06/17/25 13:00 99 24 150/86 (107) 98 06/17/25 13:00 99 24 98 Nasal Cannula* 2 28 06/17/25 11:51 93 06/17/25 11:00 94 27 159/90 (113) 98 06/17/25 10:12 99 06/17/25 10:00 113 32 159/92 (114) 96 06/17/25 09:10 97.9 111 28 156/88 (110) 95 97.9 06/17/25 08:57 97.9 110 18 208/143 98 97.9 06/17/25 08:55 121 Laboratory Tests Test 06/17/25 11:00 White Blood Count 8.7 10^3/uL (4.4-10.8) Assessment/Plan Assessment/Plan Assessment Chest pain rule out ACS Hypertensive emergency Acute hypoxic respiratory failure requiring supplementary oxygen Pulmonary edema Morbid obesity History of CHF History of hypertension History of [place] History of hysterectomy History of nephrolithiasis with removal Resident of [facility] Plan Admit to tele ACS workup Pain management TSH Free T4 Strict I&Os Daily weights Aspirin + statin Hemoglobin A1c Echo ordered Troponins Antihypertensives Supportive oxygen PICC Isaacs catheterization UA Chest x-ray EKG Diet Home medications reconciled DVT prophylaxis-Lovenox PUD prophylaxis-PPIs Discussed plan of care with patient and nurse Social work-DCP [facility] Counseled patient on lifestyle modifications, diet, and exercise [id number] Preventive counseling healthy eating habits, physical activity, and regular checkups Plan discussed with: Patient Date of Service: Jun 17, 2025 Billing Provider: DORIAN GARZA Common Visit Codes: [id number] INP/OBS CARE (HIGH) DORIAN GARZA Jun 17, 2025 16:17
[2025-06-17] MEDS ORDERED: ASCO500T6 PO (16:19)
[2025-06-17 19:22] VITALS: PULSE 93; RESP 19; O2SAT 96
[2025-06-17] MEDS: ATORVASTATIN 20 MG TAB PO SCH (22:00)
[2025-06-17] MEDS ORDERED: MIDODRINE HCL 10 MG TAB PO PRN (22:15)
[2025-06-18] VITALS (10 sets, daily range): BP systolic 122–147; BP diastolic 77–117; PULSE 73–101; RESP 17–22; TEMP 96.6–98.3; O2SAT 96–100
[2025-06-18] MEDS ORDERED: CLON0.1T PO (01:49)
[2025-06-18] MEDS ORDERED: LOSA-534 PO (01:49)
[2025-06-18] MEDS: PANTOPRAZOLE 40 MG TAB PO SCH (06:44)
[2025-06-18] MEDS: MULTIPLE VITAMINS W/ MINERALS TAB PO SCH (09:51)
[2025-06-18] MEDS: FERROUS SULFATE 325mg EC TAB PO SCH (09:51)
[2025-06-18] MEDS: FOLIC ACID 1 MG TAB PO SCH (09:51)
[2025-06-18] MEDS: ASCORBIC ACID 500 MG TAB PO SCH (09:51)
[2025-06-18] MEDS: LISINOPRIL 20 MG TAB PO SCH (09:52)
[2025-06-18] MEDS: ENOXAPARIN SOD 40 MG/0.4 ML SYRINGE SC SCH (09:53)
--- NOTE | 2025-06-18 12:19 | DVHPN2 ---
Subjective The patient is seen and examined at bedside. Still complain of chest pain. Reviewed: Care Plan, H&P, Labs, Medications, Previous Orders, Radiology Changes from previous H/P or p: No Changes Cardiovascular: Chest Pain Objective Vitals Vital Signs Date Time Temp Pulse Resp B/P (MAP) Pulse Ox O2 Delivery O2 Flow Rate FiO2 06/18/25 09:52 144/98 06/18/25 09:00 98.2 101 18 98 98.2 06/17/25 19:22 Nasal Cannula* 2 28 Intake/Output Intake and Output 06/18/25 07:00 Intake Total 600 ml Output Total 275 ml Balance 325 ml Intake Oral 600 ml Output Urine Total 275 ml General Appearance: Alert, Oriented X3, Cooperative, No acute distress HEENT: Atraumatic, PERRLA, EOMI, Mucous membr. moist/pink Neck: Supple Lungs: Clear to auscultation, Normal air movement Cardiovascular: Regular rate, Normal S1, Normal S2, No murmurs, Gallops, Rubs Abdomen: Normal bowel sounds, Soft, No tenderness Neuro: Cranial nerves 3-12 NL Psych/Mental Status: Mental status NL Medications Current Medications Medications Dose Ordered Sig/Ivett Route Start Time Stop Time Status Last Admin Dose Admin Aspirin 81 mg DAILY PO 06/18/25 10:00 06/18/25 09:52 81 MG Atorvastatin Calcium 40 mg HS PO 06/17/25 22:00 Acetaminophen 650 mg Q6HP PRN PO 06/17/25 16:15 Nitroglycerin 0.4 mg Q5MINP PRN SL 06/17/25 16:15 Morphine Sulfate 2 mg Q30M PRN IV 06/17/25 16:15 Hold Enoxaparin Sodium 40 mg DAILY SC 06/18/25 10:00 06/18/25 09:53 40 MG Apixaban 2.5 mg BID PO 06/17/25 22:00 Hold Ascorbic Acid 500 mg DAILY PO 06/18/25 10:00 06/18/25 09:51 500 MG Lisinopril 10 mg DAILY PO 06/18/25 10:00 06/18/25 09:52 10 MG Multivitamins/ Minerals 1 tab DAILY PO 06/18/25 10:00 06/18/25 09:51 1 TAB Pantoprazole Sodium 40 mg DAILY@0700 PO 06/18/25 07:00 Ferrous Sulfate 325 mg DAILY PO 06/18/25 10:00 06/18/25 09:51 325 MG Folic Acid 1 mg DAILY PO 06/18/25 10:00 06/18/25 09:51 1 MG Midodrine 5 mg Q6HPRN PRN PO 06/17/25 22:15 Hold Laboratory Results Laboratory Tests 06/17/25 11:00 Urinalysis Test 06/17/25 13:10 Urine Color Yellow (Yellow) Urine Clarity Turbid (Clear) H Urine pH 6.0 (5.0-9.0) Urine Specific [place] 1.017 (1.001-1.035) Urine Protein 2+ (Negative) H Urine Ketones Negative (Negative) Urine Blood Trace /uL (Negative) H Urine Nitrite Negative (Negative) Urine Bilirubin Negative (Negative) Urine Urobilinogen Normal mg/dL (Negative) Urine Leukocyte Esterase Negative /uL (Negative) Urine RBC 30 /hpf (0 - 4) Urine Microscopic WBC 4 /HPF (0-5) Urine Squamous Epithelial Cells Few /hpf (<5) Urine Bacteria None seen /hpf (None Seen) Urine Hyaline Casts Mod /lpf (0 - 2) Urine Mucus Few (None Seen) Urine Glucose Normal mg/dL (Normal) Labs and/or images reviewed: Labs reviewed by me Assessment/Plan Assessment/Plan Chest pain rule out ACS Hypertensive emergency Acute hypoxic respiratory failure requiring supplementary oxygen Pulmonary edema Morbid obesity History of CHF History of hypertension History of [place] History of hysterectomy History of nephrolithiasis with removal Resident of [facility] Continuing current management. The patient is still complain of chest pain. I am going to consult Cardiology. Continuing with IV Lasix. This medical document was created using an electronic medical record system with [employer] direct computerized dictation system. Although this document has been carefully reviewed, there may still be some phonetic and typographical errors. These areas are purely typographical due to imperfections of the software programs, and do not reflect any compromise in the patient's medical care. Plan discussed with: Patient Date of Service: Jun 18, 2025 Billing Provider: LETICIA PAULA MD Common Visit Codes: [id number] INP/OBS CARE(HIGH) LETICIA PAULA MD Jun 18, 2025 12:19
[2025-06-18 14:44] LABS: Hematocrit 35.8 % (36.0-46.0); Hemoglobin 10.6 g/dL (12.2-16.2); Mean Corpuscular Hemoglobin 25.1 pg (28.0-32.0); Mean Corpuscular Volume 84.5 fL (80.0-100.0); Nucleated Red Blood Cells % 0.2 %
[2025-06-18 14:45] LABS: Anion Gap 5 (5-15); Chloride 105 mmol/L (98-107); Potassium 4.2 mmol/L (3.5-5.1)
[2025-06-18 14:46] LABS: Calcium 8.8 mg/dL (8.7-10.4)
[2025-06-18 14:51] LABS: BUN/Creatinine Ratio 17.9 (10.0-20.0); Blood Urea Nitrogen 15 mg/dL (9-23); Magnesium 2.0 mg/dL (1.6-2.6); Triglycerides 70 mg/dL (< 150)
[2025-06-18 14:52] LABS: Cholesterol 128 mg/dL (< 200)
[2025-06-18 14:53] LABS: HDL Cholesterol 45 mg/dL (40-59)
[2025-06-18 14:58] LABS: Carbon Dioxide 35 mmol/L (20-31); Glucose 106 mg/dL (74-106); Sodium 145 mmol/L (136-145)
[2025-06-18] MEDS: APIXABAN 2.5 MG TAB PO SCH (22:17)
--- NOTE | 2025-06-18 23:25 | ECG ---
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
--- NOTE | 2025-06-18 23:25 | ECG ---
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
--- NOTE | 2025-06-18 23:28 | ECG ---
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
[2025-06-19] VITALS (7 sets, daily range): BP systolic 98–138; BP diastolic 47–84; PULSE 83–95; RESP 17–19; TEMP 90–99.1; O2SAT 96–99
--- NOTE | 2025-06-19 09:54 | DVHPN2 ---
Subjective The patient is seen and examined at bedside. Still complain of chest pain. Reviewed: Care Plan, H&P, Labs, Medications, Previous Orders, Radiology Changes from previous H/P or p: No Changes Cardiovascular: Chest Pain Objective Vitals Vital Signs Date Time Temp Pulse Resp B/P (MAP) Pulse Ox O2 Delivery O2 Flow Rate FiO2 06/19/25 05:00 98.1 87 19 138/84 (102) 99 98.1 06/18/25 20:00 Nasal Cannula* 3 32 Intake/Output Intake and Output 06/19/25 07:00 Intake Total 1686 ml Output Total 550 ml Balance 1136 ml Intake Oral 1686 ml Output Urine Total 550 ml General Appearance: Alert, Oriented X3, Cooperative, No acute distress HEENT: Atraumatic, PERRLA, EOMI, Mucous membr. moist/pink Neck: Supple Lungs: Clear to auscultation, Normal air movement Cardiovascular: Regular rate, Normal S1, Normal S2, No murmurs, Gallops, Rubs Abdomen: Normal bowel sounds, Soft, No tenderness Neuro: Cranial nerves 3-12 NL Psych/Mental Status: Mental status NL Medications Current Medications Medications Dose Ordered Sig/Ivett Route Start Time Stop Time Status Last Admin Dose Admin Aspirin 81 mg DAILY PO 06/18/25 10:00 06/18/25 09:52 81 MG Atorvastatin Calcium 40 mg HS PO 06/17/25 22:00 06/18/25 22:18 40 MG Acetaminophen 650 mg Q6HP PRN PO 06/17/25 16:15 Nitroglycerin 0.4 mg Q5MINP PRN SL 06/17/25 16:15 Morphine Sulfate 2 mg Q30M PRN IV 06/17/25 16:15 Hold Apixaban 2.5 mg BID PO 06/17/25 22:00 06/18/25 22:17 2.5 MG Ascorbic Acid 500 mg DAILY PO 06/18/25 10:00 06/18/25 09:51 500 MG Lisinopril 10 mg DAILY PO 06/18/25 10:00 06/18/25 09:52 10 MG Multivitamins/ Minerals 1 tab DAILY PO 06/18/25 10:00 06/18/25 09:51 1 TAB Pantoprazole Sodium 40 mg DAILY@0700 PO 06/18/25 07:00 06/19/25 06:33 40 MG Ferrous Sulfate 325 mg DAILY PO 06/18/25 10:00 06/18/25 09:51 325 MG Folic Acid 1 mg DAILY PO 06/18/25 10:00 06/18/25 09:51 1 MG Midodrine 5 mg Q6HPRN PRN PO 06/17/25 22:15 Hold Laboratory Results Laboratory Tests 06/18/25 14:18 Chemistry Test 06/18/25 14:18 Calcium Level 8.8 mg/dL (8.7-10.4) Magnesium Level 2.0 mg/dL (1.6-2.6) Lipid panel Test 06/18/25 14:18 Cholesterol Level 128 mg/dL (< 200) HDL Cholesterol 45 mg/dL (40-59) Triglycerides Level 70 mg/dL (< 150) Urinalysis Test 06/17/25 13:10 Urine Color Yellow (Yellow) Urine Clarity Turbid (Clear) H Urine pH 6.0 (5.0-9.0) Urine Specific [place] 1.017 (1.001-1.035) Urine Protein 2+ (Negative) H Urine Ketones Negative (Negative) Urine Blood Trace /uL (Negative) H Urine Nitrite Negative (Negative) Urine Bilirubin Negative (Negative) Urine Urobilinogen Normal mg/dL (Negative) Urine Leukocyte Esterase Negative /uL (Negative) Urine RBC 30 /hpf (0 - 4) Urine Microscopic WBC 4 /HPF (0-5) Urine Squamous Epithelial Cells Few /hpf (<5) Urine Bacteria None seen /hpf (None Seen) Urine Hyaline Casts Mod /lpf (0 - 2) Urine Mucus Few (None Seen) Urine Glucose Normal mg/dL (Normal) Microbiology Microbiology Date/Time Source Procedure Growth Status 06/18/25 00:49 Nose MRSA Screen - Final Complete Labs and/or images reviewed: Labs reviewed by me Assessment/Plan Assessment/Plan Chest pain rule out ACS Hypertensive emergency Acute hypoxic respiratory failure requiring supplementary oxygen Pulmonary edema Morbid obesity History of CHF History of hypertension History of [place] History of hysterectomy History of nephrolithiasis with removal Resident of [facility] Continuing current management. The patient is still complain of chest pain. Waiting for Cardiology. Continuing with IV Lasix. This medical document was created using an electronic medical record system with [employer] direct computerized dictation system. Although this document has been carefully reviewed, there may still be some phonetic and typographical errors. These areas are purely typographical due to imperfections of the software programs, and do not reflect any compromise in the patient's medical care. Plan discussed with: Patient My Orders Orders - LETICIA PAULA MD Procedure Category Date Status Time * Cardiology Consult CONS 06/19/25 Transmitted 02:50 Date of Service: Jun 19, 2025 Billing Provider: LETICIA PAULA MD Common Visit Codes: [id number] INP/OBS CARE(HIGH) LETICIA PAULA MD Jun 19, 2025 09:54
--- NOTE | 2025-06-19 12:38 | DVHINCON2 ---
Date Seen: Jun 19, 2025 Referring Physician July Reason for Consultation Chest Pain History of Present Illness 72-year-old female with PMH for CHF, HTN, [place], hysterectomy, nephrolithiasis, presents to the hospital with chest pain. Chest pain noted to be left-sided, sharp in nature, intermittent, nonradiating worsened with deep inhalation.. Patient endorses associated symptoms of shortness of breath. Upon evaluation in the ER patient found to have negative troponins x4. Initial blood pressure noted to be elevated at 0 208 systolic. Chest x-ray showed pulmonary congestion/edema. EKG reviewed and shows sinus rhythm with PVCs, LVH, RBBB. No acute ST and T-wave abnormalities noted. Past Medical History As stated above Past Surgical History As stated above Family History: Patient reports no known family medical history. Social History Denies alcohol, tobacco, or illicit drug use Allergies: Coded Allergies: Codeine (Verified Allergy, Unknown, 08/10/24) Home Meds Reported Medications Losartan Potassium (Losartan Potassium) 50 Mg Tab, 1 TAB PO DAILY, #30 TAB 5 Refills 06/18/25 Clonidine Hydrochloride (Clonidine Hcl) 0.1 Mg Tab, 1 TAB PO QPM, #30 TAB 2 Refills 06/18/25 Ipratropium-Albuterol (Ipratropium [place]/Albut) 1 Neil Neil, 1 NEIL IN Q2HP PRN for SHORTNESS OF BREATH, ML 08/12/24 Docusate Sodium (Colace) 100 Mg Cap, 100 MG PO [id number] PRN for FOR CONSTIPATION, CAP 08/12/24 Acetaminophen (Apap) 325 Mg Tab, 2 TAB PO Q6HPRN PRN for TEMP GREATER THAN 100, TAB 08/12/24 Midodrine HCl (Midodrine Hydrochloride) 5 Mg Tab, 5 MG PO Q6HPRN PRN for HYPOTENSION, TAB 08/12/24 Pantoprazole Sodium Sesquihydr (Protonix) 40 Mg Tab, 40 MG PO DAILY, #30 TAB 08/12/24 Multiple Vitamins W/ Minerals (Strovite One) Tab, 1 TAB PO DAILY, TAB 08/12/24 Folic Acid (Folic Acid) 1 Mg Tab, 1 MG PO DAILY, TAB 08/12/24 Ferrous Sulfate (Ferosul) 325 Mg Tab, 325 MG PO DAILY, TAB 08/12/24 Apixaban Base (ELIQUIS) 2.5 Mg Tab, 2.5 MG PO BID, TAB 08/12/24 Diphenhydramine Hcl (BANOPHEN) 50 Mg Cap, 50 MG PO DAILY, CAP 08/12/24 Aspirin (Aspirin Low Dose) 81 Mg Chw, 81 MG PO DAILY, TAB.CHEW 08/12/24 Ascorbic Acid (VITAMIN C TABLET) 500 Mg Tb, 500 MG PO DAILY, TAB 08/12/24 Review of Systems Constitutional: No: Fever, Chills, Sweats, Weakness, Malaise, Other Eyes: No: Pain, Vision change, Conjunctivae inflammation, Eyelid inflammation, Other, Redness ENT: No: Ear pain, Ear discharge, Nose pain, Nose discharge, Nose congestion, Mouth pain, Mouth swelling, Throat pain, Throat swelling, Other Respiratory: No: Cough, Dry, Shortness of breath, SOB with exertion, Wheezing, Hemoptysis, Pleuritic Pain, Sputum, Wheezing, Other Cardiovascular: ; No: Chest Pain Palpitations, Orthopnea, Paroxysmal Noc. Dyspnea, Edema, Lt Headedness, Other Gastrointestinal: No: Nausea, Vomiting, Abdominal Pain, Diarrhea, Constipation, Melena, Hematochezia, Other Genitourinary: No Dysuria, No Frequency, No Incontinence, No Hematuria, No Retention, No Other Musculoskeletal: neck pain; No: other, shoulder pain, arm pain, back pain, hand pain, leg pain, foot pain Skin: No: Rash, Lesions, Jaundice, Bruising, Other Neurological: Other (Dizziness, headache.); No: Weakness, Numbness, Incoordination, Change in speech, Confusion, Seizures Vital Signs Vital Signs Date Time Temp Pulse Resp B/P (MAP) Pulse Ox O2 Delivery O2 Flow Rate FiO2 06/19/25 10:50 134/83 06/19/25 09:00 90.0 90 18 98 90.0 06/18/25 20:00 Nasal Cannula* 3 32 Physical Exam General appearance: Patient is well-developed, well-nourished, in no acute distress. HEENT: Exam shows: Normocephalic, atraumatic, PERRLA, EOMI Neck: Supple, no bruits Chest: Equal chest excursion bilaterally. Breath sounds normal-no rales or wheezes. Heart: Rhythm: Regular rate; no murmur or gallop Abdomen: Exam shows: Soft, nontender, nondistended Musculoskeletal: No clubbing, no cyanosis, no lower extremity edema Dermatology: Skin warm, moist. Neurological: Exam shows: Alert and oriented x4, normal speech Available prior records, labs, EKG, rhythm strips reviewed and interpreted Labs/Diagnostic Data Labs Test 06/18/25 14:18 06/17/25 13:10 06/17/25 11:00 Range/Units White Blood Count 8.2 4.4-10.8 10^3/uL Red Blood Count 4.24 4.0-5.20 10^6/uL Hemoglobin 10.6 L 12.2-16.2 g/dL Hematocrit 35.8 L 36.0-46.0 % Mean Corpuscular Volume 84.5 # 80.0-100.0 fL Mean Corpuscular Hemoglobin 25.1 L 28.0-32.0 pg Mean Corpuscular Hemoglobin Concent 29.7 L 32.0-36.0 g/dL Red Cell Distribution Width 18.7 H 11.8-14.3 % Platelet Count 307 140-450 10^3/uL Mean Platelet Volume 8.4 6.9-10.8 fL Neutrophils (%) (Auto) 75.7 37.0-80.0 % Lymphocytes (%) (Auto) 14.3 10.0-50.0 % Monocytes (%) (Auto) 6.4 0.0-12.0 % Eosinophils (%) (Auto) 3.2 0.0-7.0 % Basophils (%) (Auto) 0.4 0.0-2.0 % Neutrophils # (Auto) 6.2 1.6-8.6 10 ^3/uL Lymphocytes # (Auto) 1.2 0.4-5.4 10 ^3/uL Monocytes # (Auto) 0.5 0-1.3 10 ^3/uL Eosinophils # (Auto) 0.3 0-0.8 10 ^3/uL Basophils # (Auto) 0 0-0.2 10 ^3/uL Nucleated Red Blood Cells 0.2 % Sodium Level 145 136-145 mmol/L Potassium Level 4.2 3.5-5.1 mmol/L Chloride Level 105 98-107 mmol/L Carbon Dioxide Level 35 H 20-31 mmol/L Anion Gap 5 5-15 Blood Urea Nitrogen 15 9-23 mg/dL Creatinine 0.84 0.550-1.02 mg/dL Glomerular Filtration Rate Calc 71 >90 mL/min BUN/Creatinine Ratio 17.9 10.0-20.0 Serum Glucose 106 74-106 mg/dL Calcium Level 8.8 8.7-10.4 mg/dL Magnesium Level 2.0 1.6-2.6 mg/dL Troponin I High Sensitivity 8 </=34 ng/L Triglycerides Level 70 < 150 mg/dL Cholesterol Level 128 < 200 mg/dL LDL Cholesterol 73 < 100 mg/dL HDL Cholesterol 45 40-59 mg/dL Urine Color Yellow Yellow Urine Clarity Turbid H Clear Urine pH 6.0 5.0-9.0 Urine Specific [place] 1.017 1.001-1.035 Urine Protein 2+ H Negative Urine Ketones Negative Negative Urine Blood Trace H Negative /uL Urine Nitrite Negative Negative Urine Bilirubin Negative Negative Urine Urobilinogen Normal Negative mg/dL Urine Leukocyte Esterase Negative Negative /uL Urine RBC 30 0 - 4 /hpf Urine Microscopic WBC 4 0-5 /HPF Urine Squamous Epithelial Cells Few <5 /hpf Urine Bacteria None seen None Seen /hpf Urine Hyaline Casts Mod 0 - 2 /lpf Urine Mucus Few None Seen Urine Glucose Normal Normal mg/dL Thyroid Stimulating Hormone (TSH) 0.56 0.55-4.78 uIU/mL Free Thyroxine (T4) Calculated 1.01 0.89-1.76 ng/dL Microbiology Date/Time Source Procedure Growth Status 06/18/25 00:49 Nose MRSA Screen - Final Complete Assessment * Chest Pain - Atypical, Pleuritic in nature. Troponins negaitve. EKG negative for acute ischemic change. Recent ECHO with normal EF. Continue aspirin and statin. * Acute on Chronic HFpEF - Continue diuresing with lasix 40 mg IV daily. Monitor I&Os. * Hypertensive Emergency, Uncontrolled HTN - Better controlled. continue trending on current regimen * Acute hypoxic respiratory failure, CHF - Continue diuresing. Currently on 2L NC. Case Discussed with Dr Read. Continue diuresing until euvolemic. Plan for Lasix 40 mg daily po on DC. There is no further cardiac work-up indicated at this time given no significant changes on ECHO. Outpatient cardiology follow up recommended. Thank you for allowing us to participate in this patient's care. Please call for any questions or concerns. Critical care, time spent: 41 minutes This medical document was created using an electronic medical record system with voice recognition software and computerized dictation system. Although this document has been carefully reviewed, there might still be some phonetic and typographical errors. Occasional wrong-word or ``sound-alike substitutions ma y have occurred due to the inherent limitations of voice recognition software. These areas are purely typographical due to imperfections of the software programs and do not reflect any compromise in the patient's medical care. Please read the chart carefully and recognize, using context, where these substitutions have occurred. Thank you for allowing me to participate in the management of this patient. The treatment plan was discussed with and agreed upon by patient/family including requesting consultants and ordering of imaging/procedures. Plan discussed with: Patient NYHA Physical activity limitations: Class4(Severe)discomfort Date of Service: Jun 19, 2025 Billing Provider: SUSHIL BROWNE Cardiology Common Codes: [id number] INP/OBS CARE (High), [id number] CARE 30-74 MIN SUSHIL BROWNE Jun 19, 2025 12:38
[2025-06-20] VITALS (9 sets, daily range): BP systolic 119–140; BP diastolic 62–89; PULSE 83–92; RESP 17–20; TEMP 97.9–98.4; O2SAT 96–99
[2025-06-20] MEDS: FUROSEMIDE 40 MG/4 ML VIAL IV SCH (10:05)
--- NOTE | 2025-06-20 10:32 | DVHPN2 ---
Consult Progress Note Objective vital signs Vital Sign Date Time Temp Pulse Resp B/P (MAP) Pulse Ox O2 Delivery O2 Flow Rate FiO2 06/20/25 10:05 125/71 06/20/25 07:59 17 96 Nasal Cannula* 3 32 06/20/25 04:56 97.9 91 97.9 Total Intake and Output 06/19/25 06/19/25 06/20/25 15:00 23:00 07:00 Intake Total 490 ml 520 ml Output Total 550 ml 200 ml Balance -60 ml 320 ml medications Current Medications Medications Dose Ordered Sig/Ivett Route Start Time Stop Time Status Last Admin Dose Admin Aspirin 81 mg DAILY PO 06/18/25 10:00 06/20/25 10:00 81 MG Atorvastatin Calcium 40 mg HS PO 06/17/25 22:00 06/19/25 21:37 40 MG Acetaminophen 650 mg Q6HP PRN PO 06/17/25 16:15 Nitroglycerin 0.4 mg Q5MINP PRN SL 06/17/25 16:15 Morphine Sulfate 2 mg Q30M PRN IV 06/17/25 16:15 Hold Apixaban 2.5 mg BID PO 06/17/25 22:00 06/20/25 10:00 2.5 MG Ascorbic Acid 500 mg DAILY PO 06/18/25 10:00 06/20/25 10:00 500 MG Lisinopril 10 mg DAILY PO 06/18/25 10:00 06/20/25 10:02 10 MG Multivitamins/ Minerals 1 tab DAILY PO 06/18/25 10:00 06/20/25 09:59 1 TAB Pantoprazole Sodium 40 mg DAILY@0700 PO 06/18/25 07:00 06/20/25 05:42 40 MG Ferrous Sulfate 325 mg DAILY PO 06/18/25 10:00 06/20/25 10:00 325 MG Folic Acid 1 mg DAILY PO 06/18/25 10:00 06/20/25 10:04 1 MG Midodrine 5 mg Q6HPRN PRN PO 06/17/25 22:15 Hold Furosemide 40 mg DAILY IV 06/20/25 10:00 06/20/25 10:05 40 MG laboratory and microbiology Laboratory Tests 06/18/25 14:18 Test 06/18/25 14:18 Range/Units Serum Glucose 106 74-106 mg/dL Problem List/Assessment/Plan Problem List/Assessment/Plan * Chest Pain - Atypical, Pleuritic in nature. Troponins negaitve. EKG negative for acute ischemic change. Recent ECHO with normal EF. Continue aspirin and statin. * Acute on Chronic HFpEF - Continue diuresing with lasix 40 mg IV daily. Monitor I&Os. * Hypertensive Emergency, Uncontrolled HTN - Better controlled. continue trending on current regimen * Acute hypoxic respiratory failure, CHF - Continue diuresing. Currently on 2L NC. Case Discussed with Dr Read. Continue diuresing until euvolemic. Plan for Lasix 40 mg daily po on DC. There is no further cardiac work-up indicated at this time, Patient had recent ECHO with normal EF. Outpatient cardiology follow up recommended. Thank you for allowing us to participate in this patient's care. Please call for any questions or concerns. Critical care, time spent: 38 minutes This medical document was created using an electronic medical record system with voice recognition software and computerized dictation system. Although this document has been carefully reviewed, there might still be some phonetic and typographical errors. Occasional wrong-word or ``sound-alike substitutions may have occurred due to the inherent limitations of voice recognition software. These areas are purely typographical due to imperfections of the software programs and do not reflect any compromise in the patient's medical care. Please read the chart carefully and recognize, using context, where these substitutions have occurred. Thank you for allowing me to participate in the management of this patient. The treatment plan was discussed with and agreed upon by patient/family including requesting consultants and ordering of imaging/procedures. Plan discussed with: Patient Date of Service: Jun 20, 2025 Billing Provider: SUSHIL BROWNE Common Visit Codes: [id number] INP/OBS CARE(HIGH) SUSHIL BROWNE Jun 20, 2025 10:32
--- NOTE | 2025-06-20 11:09 | DVHPN2 ---
Subjective The patient is seen and examined at bedside. Feel better today. Reviewed: Care Plan, H&P, Labs, Medications, Previous Orders, Radiology Changes from previous H/P or p: No Changes Cardiovascular: Chest Pain Objective Vitals Vital Signs Date Time Temp Pulse Resp B/P (MAP) Pulse Ox O2 Delivery O2 Flow Rate FiO2 06/20/25 10:05 125/71 06/20/25 07:59 17 96 Nasal Cannula* 3 32 06/20/25 04:56 97.9 91 97.9 Intake/Output Intake and Output 06/20/25 07:00 Intake Total 1010 ml Output Total 750 ml Balance 260 ml Intake Oral 1010 ml Output Urine Total 750 ml General Appearance: Alert, Oriented X3, Cooperative, No acute distress HEENT: Atraumatic, PERRLA, EOMI, Mucous membr. moist/pink Neck: Supple Lungs: Clear to auscultation, Normal air movement Cardiovascular: Regular rate, Normal S1, Normal S2, No murmurs, Gallops, Rubs Abdomen: Normal bowel sounds, Soft, No tenderness Neuro: Cranial nerves 3-12 NL Psych/Mental Status: Mental status NL Medications Current Medications Medications Dose Ordered Sig/Ivett Route Start Time Stop Time Status Last Admin Dose Admin Aspirin 81 mg DAILY PO 06/18/25 10:00 06/20/25 10:00 81 MG Atorvastatin Calcium 40 mg HS PO 06/17/25 22:00 06/19/25 21:37 40 MG Acetaminophen 650 mg Q6HP PRN PO 06/17/25 16:15 Nitroglycerin 0.4 mg Q5MINP PRN SL 06/17/25 16:15 Morphine Sulfate 2 mg Q30M PRN IV 06/17/25 16:15 Hold Apixaban 2.5 mg BID PO 06/17/25 22:00 06/20/25 10:00 2.5 MG Ascorbic Acid 500 mg DAILY PO 06/18/25 10:00 06/20/25 10:00 500 MG Lisinopril 10 mg DAILY PO 06/18/25 10:00 06/20/25 10:02 10 MG Multivitamins/ Minerals 1 tab DAILY PO 06/18/25 10:00 06/20/25 09:59 1 TAB Pantoprazole Sodium 40 mg DAILY@0700 PO 06/18/25 07:00 06/20/25 05:42 40 MG Ferrous Sulfate 325 mg DAILY PO 06/18/25 10:00 06/20/25 10:00 325 MG Folic Acid 1 mg DAILY PO 06/18/25 10:00 06/20/25 10:04 1 MG Midodrine 5 mg Q6HPRN PRN PO 06/17/25 22:15 Hold Furosemide 40 mg DAILY IV 06/20/25 10:00 06/20/25 10:05 40 MG Laboratory Results Laboratory Tests 06/18/25 14:18 Urinalysis Test 06/17/25 13:10 Urine Color Yellow (Yellow) Urine Clarity Turbid (Clear) H Urine pH 6.0 (5.0-9.0) Urine Specific [place] 1.017 (1.001-1.035) Urine Protein 2+ (Negative) H Urine Ketones Negative (Negative) Urine Blood Trace /uL (Negative) H Urine Nitrite Negative (Negative) Urine Bilirubin Negative (Negative) Urine Urobilinogen Normal mg/dL (Negative) Urine Leukocyte Esterase Negative /uL (Negative) Urine RBC 30 /hpf (0 - 4) Urine Microscopic WBC 4 /HPF (0-5) Urine Squamous Epithelial Cells Few /hpf (<5) Urine Bacteria None seen /hpf (None Seen) Urine Hyaline Casts Mod /lpf (0 - 2) Urine Mucus Few (None Seen) Urine Glucose Normal mg/dL (Normal) Microbiology Microbiology Date/Time Source Procedure Growth Status 06/18/25 00:49 Nose MRSA Screen - Final Complete Labs and/or images reviewed: Labs reviewed by me Assessment/Plan Assessment/Plan Chest pain rule out ACS Hypertensive emergency Acute hypoxic respiratory failure requiring supplementary oxygen Pulmonary edema Morbid obesity History of CHF History of hypertension History of [place] History of hysterectomy History of nephrolithiasis with removal Resident of long-term [facility] Continuing current management. Lasix will be switched to 40 mg p.o. once per day. Discharge patient today. Consulted social worker delinquency prevention to transfer the patient back to [facility] which is her long-term resident. This medical document was created using an electronic medical record system with M*M [employer] direct computerized dictation system. Although this document has been carefully reviewed, there may still be some phonetic and typographical errors. These areas are purely typographical due to imperfections of the software programs, and do not reflect any compromise in the patient's medical care. Plan discussed with: Patient My Orders Orders - LETICIA PAULA MD Procedure Category Date Status Time Specialty Bed Mattress ORDERS 06/19/25 Transmitted 14:30 Date of Service: Jun 20, 2025 Billing Provider: LETICIA PAULA MD Common Visit Codes: [id number] INP/OBS CARE(HIGH) LETICIA PAULA MD Jun 20, 2025 11:09
[2025-06-20] MEDS ORDERED: FURO1TAB31 PO (11:18)
[2025-06-21] VITALS (7 sets, daily range): BP systolic 121–156; BP diastolic 73–92; PULSE 81–108; RESP 18–20; TEMP 97.2–98.8; O2SAT 88–100
[2025-06-21 10:00] LABS: Base Excess 12.3 mmol/L (-2.0-3.0)
--- NOTE | 2025-06-21 12:16 | DVHPN2 ---
Subjective The patient is seen and examined at bedside. Feel better today. The patient wanted to go home. The patient was discharged yesterday however when transportation from [facility] came and pick her up they brought a normal gurney and the patient need a big boy gurney. So transfer was canceled last night. Also the patient needs to resume hospice Reviewed: Care Plan, H&P, Labs, Medications, Previous Orders, Radiology Changes from previous H/P or p: No Changes Cardiovascular: Chest Pain Objective Vitals Vital Signs Date Time Temp Pulse Resp B/P (MAP) Pulse Ox O2 Delivery O2 Flow Rate FiO2 06/21/25 10:00 131/87 06/21/25 09:00 98.2 95 20 97 98.2 06/20/25 19:55 Nasal Cannula* 3 32 Intake/Output Intake and Output 06/21/25 07:00 Intake Total 1400 ml Output Total 1400 ml Balance 0 ml Intake Oral 1400 ml Output Urine Total 1400 ml # Voids 2 General Appearance: Alert, Oriented X3, Cooperative, No acute distress HEENT: Atraumatic, PERRLA, EOMI, Mucous membr. moist/pink Neck: Supple Lungs: Clear to auscultation, Normal air movement Cardiovascular: Regular rate, Normal S1, Normal S2, No murmurs, Gallops, Rubs Abdomen: Normal bowel sounds, Soft, No tenderness Neuro: Cranial nerves 3-12 NL Psych/Mental Status: Mental status NL Medications Current Medications Medications Dose Ordered Sig/Ivett Route Start Time Stop Time Status Last Admin Dose Admin Aspirin 81 mg DAILY PO 06/18/25 10:00 06/21/25 10:00 81 MG Atorvastatin Calcium 40 mg HS PO 06/17/25 22:00 06/20/25 22:00 40 MG Acetaminophen 650 mg Q6HP PRN PO 06/17/25 16:15 Nitroglycerin 0.4 mg Q5MINP PRN SL 06/17/25 16:15 Morphine Sulfate 2 mg Q30M PRN IV 06/17/25 16:15 Hold Apixaban 2.5 mg BID PO 06/17/25 22:00 06/21/25 11:43 2.5 MG Ascorbic Acid 500 mg DAILY PO 06/18/25 10:00 06/21/25 10:00 500 MG Lisinopril 10 mg DAILY PO 06/18/25 10:00 06/21/25 10:00 10 MG Multivitamins/ Minerals 1 tab DAILY PO 06/18/25 10:00 06/21/25 10:00 1 TAB Pantoprazole Sodium 40 mg DAILY@0700 PO 06/18/25 07:00 06/21/25 06:33 40 MG Ferrous Sulfate 325 mg DAILY PO 06/18/25 10:00 06/21/25 10:00 325 MG Folic Acid 1 mg DAILY PO 06/18/25 10:00 06/21/25 10:00 1 MG Midodrine 5 mg Q6HPRN PRN PO 06/17/25 22:15 Hold Furosemide 40 mg DAILY IV 06/20/25 10:00 06/21/25 10:00 40 MG Laboratory Results Laboratory Tests 06/18/25 14:18 Urinalysis Test 06/17/25 13:10 Urine Color Yellow (Yellow) Urine Clarity Turbid (Clear) H Urine pH 6.0 (5.0-9.0) Urine Specific [place] 1.017 (1.001-1.035) Urine Protein 2+ (Negative) H Urine Ketones Negative (Negative) Urine Blood Trace /uL (Negative) H Urine Nitrite Negative (Negative) Urine Bilirubin Negative (Negative) Urine Urobilinogen Normal mg/dL (Negative) Urine Leukocyte Esterase Negative /uL (Negative) Urine RBC 30 /hpf (0 - 4) Urine Microscopic WBC 4 /HPF (0-5) Urine Squamous Epithelial Cells Few /hpf (<5) Urine Bacteria None seen /hpf (None Seen) Urine Hyaline Casts Mod /lpf (0 - 2) Urine Mucus Few (None Seen) Urine Glucose Normal mg/dL (Normal) Blood Gas Results Test 06/21/25 09:50 Arterial Blood pH 7.403 (7.350-7.450) FiO2 % 21.0 Microbiology Microbiology Date/Time Source Procedure Growth Status 06/18/25 00:49 Nose MRSA Screen - Final Complete Labs and/or images reviewed: Labs reviewed by me Assessment/Plan Assessment/Plan Chest pain rule out ACS Hypertensive emergency Acute hypoxic respiratory failure requiring supplementary oxygen Pulmonary edema Morbid obesity History of CHF History of hypertension History of [place] History of hysterectomy History of nephrolithiasis with removal Resident of long-term SNF Continuing current management. Lasix will be switched to 40 mg p.o. once per day. So according to criminal justice social worker when [facility] came and picked the patient up they brought a wrong side of gurney which is normal gurney so the patient was not able to transport back to [facility] yesterday. On top of it they said they can not accept the patient back unless the patient resume her hospice. Attempted to call hospice showed no answer. So waiting for transplant case manager to set up the transportation with laurie carranza and also the resume hospice. This medical document was created using an electronic medical record system with M[employer]M [employer] ([employer] direct computerized dictation system. Although this document has been carefully reviewed, there may still be some phonetic and typographical errors. These areas are purely typographical due to imperfections of the software programs, and do not reflect any compromise in the patient's medical care. Plan discussed with: Patient My Orders Orders - LETICIA PAULA MD Procedure Category Date Status Time * Medical Office Assistant Instructor CONS 06/21/25 Transmitted Consult Abg W/ Co-Ox RT 06/21/25 Logged 09:10 Date of Service: Jun 21, 2025 Billing Provider: LETICIA PAULA MD Common Visit Codes: [id number] INP/OBS CARE(HIGH) LETICIA PAULA MD Jun 21, 2025 12:16
[2025-06-22] VITALS (7 sets, daily range): BP systolic 138–179; BP diastolic 82–98; PULSE 95–96; RESP 19–20; TEMP 98.1–99.2; O2SAT 92–95
--- NOTE | 2025-06-22 11:07 | DVHPN2 ---
Subjective The patient is seen and examined at bedside. Feel better today. The patient wanted to go home. The patient was discharged yesterday however when transportation from [facility] came and pick her up they brought a normal gurney and the patient need a big boy gurney. So transfer was canceled last night. Also the patient needs to resume hospice Reviewed: Care Plan, H&P, Labs, Medications, Previous Orders, Radiology Cardiovascular: Chest Pain Objective Vitals Vital Signs Date Time Temp Pulse Resp B/P (MAP) Pulse Ox O2 Delivery O2 Flow Rate FiO2 06/22/25 10:23 179/91 06/22/25 08:51 98.8 95 20 92 98.8 06/21/25 20:00 Nasal Cannula* 1 24 Intake/Output Intake and Output 06/22/25 07:00 Intake Total 1870 ml Balance 1870 ml Intake Oral 1870 ml # Voids 4 # Bowel Movements 2 General Appearance: Alert, Oriented X3, Cooperative, No acute distress HEENT: Atraumatic, PERRLA, EOMI, Mucous membr. moist/pink Neck: Supple Lungs: Clear to auscultation, Normal air movement Cardiovascular: Regular rate, Normal S1, Normal S2, No murmurs, Gallops, Rubs Abdomen: Normal bowel sounds, Soft, No tenderness Neuro: Cranial nerves 3-12 NL Psych/Mental Status: Mental status NL Medications Current Medications Medications Dose Ordered Sig/Ivett Route Start Time Stop Time Status Last Admin Dose Admin Aspirin 81 mg DAILY PO 06/18/25 10:00 06/22/25 10:21 81 MG Atorvastatin Calcium 40 mg HS PO 06/17/25 22:00 06/21/25 22:35 40 MG Acetaminophen 650 mg Q6HP PRN PO 06/17/25 16:15 Nitroglycerin 0.4 mg Q5MINP PRN SL 06/17/25 16:15 Morphine Sulfate 2 mg Q30M PRN IV 06/17/25 16:15 Hold Apixaban 2.5 mg BID PO 06/17/25 22:00 06/22/25 10:22 2.5 MG Ascorbic Acid 500 mg DAILY PO 06/18/25 10:00 06/22/25 10:21 500 MG Lisinopril 10 mg DAILY PO 06/18/25 10:00 06/22/25 10:22 10 MG Multivitamins/ Minerals 1 tab DAILY PO 06/18/25 10:00 06/22/25 10:21 1 TAB Pantoprazole Sodium 40 mg DAILY@0700 PO 06/18/25 07:00 06/22/25 06:18 40 MG Ferrous Sulfate 325 mg DAILY PO 06/18/25 10:00 06/22/25 10:21 325 MG Folic Acid 1 mg DAILY PO 06/18/25 10:00 06/22/25 10:21 1 MG Midodrine 5 mg Q6HPRN PRN PO 06/17/25 22:15 Hold Furosemide 40 mg DAILY IV 06/20/25 10:00 06/22/25 10:23 40 MG Laboratory Results Laboratory Tests 06/18/25 14:18 Urinalysis Test 06/17/25 13:10 Urine Color Yellow (Yellow) Urine Clarity Turbid (Clear) H Urine pH 6.0 (5.0-9.0) Urine Specific [place] 1.017 (1.001-1.035) Urine Protein 2+ (Negative) H Urine Ketones Negative (Negative) Urine Blood Trace /uL (Negative) H Urine Nitrite Negative (Negative) Urine Bilirubin Negative (Negative) Urine Urobilinogen Normal mg/dL (Negative) Urine Leukocyte Esterase Negative /uL (Negative) Urine RBC 30 /hpf (0 - 4) Urine Microscopic WBC 4 /HPF (0-5) Urine Squamous Epithelial Cells Few /hpf (<5) Urine Bacteria None seen /hpf (None Seen) Urine Hyaline Casts Mod /lpf (0 - 2) Urine Mucus Few (None Seen) Urine Glucose Normal mg/dL (Normal) Microbiology Microbiology Date/Time Source Procedure Growth Status 06/18/25 00:49 Nose MRSA Screen - Final Complete Assessment/Plan Assessment/Plan Chest pain rule out ACS Hypertensive emergency Acute hypoxic respiratory failure requiring supplementary oxygen Pulmonary edema Morbid obesity History of CHF History of hypertension History of [place] History of hysterectomy History of nephrolithiasis with removal Resident of long-term SNF Continuing current management. Lasix will be switched to 40 mg p.o. once per day. So according to web content & social media manager when [facility] came and picked the patient up they brought a wrong side of gurney which is normal gurney so the patient was not able to transport back to [facility] yesterday. On top of it they said they can not accept the patient back unless the patient resume her hospice. Attempted to call hospice showed no answer. So waiting for shelter case manager to set up the transportation with laurie carranza and also the resume hospice. This medical document was created using an electronic medical record system with M*M [employer] direct computerized dictation system. Although this document has been carefully reviewed, there may still be some phonetic and typographical errors. These areas are purely typographical due to imperfections of the software programs, and do not reflect any compromise in the patient's medical care. LETICIA PAULA MD Jun 22, 2025 11:07
[2025-06-22] MEDS: FUROSEMIDE 40 MG/4 ML VIAL IV ONE (13:48)
--- NOTE | 2025-06-22 22:48 | DVHDS2 ---
Discharge Summary Date of Admission Jun 17, 2025 at 16:04 Date of Discharge: Jun 22, 2025 Admitting Diagnosis Chest pain rule out ACS supposed secondary to hypertensive emergency Hypertensive emergency Acute hypoxic respiratory failure requiring supplementary oxygen Pulmonary edema Morbid obesity History of CHF History of hypertension History of [place] History of hysterectomy History of nephrolithiasis with removal Resident of long-term [facility] Labs/Diagnostic Data: Laboratory Results Test 06/21/25 09:50 06/18/25 14:18 06/17/25 13:10 06/17/25 11:00 Blood Gas Specimen Type Arterial Blood Gas Sample Site Left radial Blood Gas Patient Temperature 37.0 Arterial Blood Date Drawn [id number] Arterial Blood pH 7.403 (7.350-7.450) Arterial Blood Partial Pressure CO2 64.1 mmHg (32.0-45.0) Arterial Blood Partial Pressure O2 56.7 mmHg (83.0-108.0) Arterial Blood HCO3 39.1 mmol/L (21.0-28.0) Arterial Blood Oxygen Saturation 88.2 % (94.0-98.0) Arterial Blood Base Excess 12.3 mmol/L (-2.0-3.0) Arterial Blood Oxyhemoglobin 87.1 % (94.0-98.0) Arterial Blood Carboxyhemoglobin 0.6 % (0.5-1.5) Arterial Blood Methemoglobin 0.6 % (0.0-1.5) Benjamin Test Yes Blood Gas Total Hemoglobin 10.00 g/dL (12.0-16.0) Blood Gas Modality Room air Blood Gas Spontaneous Rate 20 FiO2 % 21.0 Blood Gas Critical Value Read Back Yes Blood Gas Notified Whom Md. deric paula Blood Gas Notified Time [id number] Blood Gas Notified By Rt maxime carmen White Blood Count 8.2 10^3/uL (4.4-10.8) Red Blood Count 4.24 10^6/uL (4.0-5.20) Hemoglobin 10.6 g/dL (12.2-16.2) Hematocrit 35.8 % (36.0-46.0) Mean Corpuscular Volume 84.5 fL (80.0-100.0) Mean Corpuscular Hemoglobin 25.1 pg (28.0-32.0) Mean Corpuscular Hemoglobin Concent 29.7 g/dL (32.0-36.0) Red Cell Distribution Width 18.7 % (11.8-14.3) Platelet Count 307 10^3/uL (140-450) Mean Platelet Volume 8.4 fL (6.9-10.8) Neutrophils (%) (Auto) 75.7 % (37.0-80.0) Lymphocytes (%) (Auto) 14.3 % (10.0-50.0) Monocytes (%) (Auto) 6.4 % (0.0-12.0) Eosinophils (%) (Auto) 3.2 % (0.0-7.0) Basophils (%) (Auto) 0.4 % (0.0-2.0) Neutrophils # (Auto) 6.2 10 ^3/uL (1.6-8.6) Lymphocytes # (Auto) 1.2 10 ^3/uL (0.4-5.4) Monocytes # (Auto) 0.5 10 ^3/uL (0-1.3) Eosinophils # (Auto) 0.3 10 ^3/uL (0-0.8) Basophils # (Auto) 0 10 ^3/uL (0-0.2) Nucleated Red Blood Cells 0.2 % Sodium Level 145 mmol/L (136-145) Potassium Level 4.2 mmol/L (3.5-5.1) Chloride Level 105 mmol/L (98-107) Carbon Dioxide Level 35 mmol/L (20-31) Anion Gap 5 (5-15) Blood Urea Nitrogen 15 mg/dL (9-23) Creatinine 0.84 mg/dL (0.550-1.02) Glomerular Filtration Rate Calc 71 mL/min (>90) BUN/Creatinine Ratio 17.9 (10.0-20.0) Serum Glucose 106 mg/dL (74-106) Calcium Level 8.8 mg/dL (8.7-10.4) Magnesium Level 2.0 mg/dL (1.6-2.6) Troponin I High Sensitivity 8 ng/L (</=34) Triglycerides Level 70 mg/dL (< 150) Cholesterol Level 128 mg/dL (< 200) LDL Cholesterol 73 mg/dL (< 100) HDL Cholesterol 45 mg/dL (40-59) Urine Color Yellow (Yellow) Urine Clarity Turbid (Clear) Urine pH 6.0 (5.0-9.0) Urine Specific [place] 1.017 (1.001-1.035) Urine Protein 2+ (Negative) Urine Ketones Negative (Negative) Urine Blood Trace /uL (Negative) Urine Nitrite Negative (Negative) Urine Bilirubin Negative (Negative) Urine Urobilinogen Normal mg/dL (Negative) Urine Leukocyte Esterase Negative /uL (Negative) Urine RBC 30 /hpf (0 - 4) Urine Microscopic WBC 4 /HPF (0-5) Urine Squamous Epithelial Cells Few /hpf (<5) Urine Bacteria None seen /hpf (None Seen) Urine Hyaline Casts Mod /lpf (0 - 2) Urine Mucus Few (None Seen) Urine Glucose Normal mg/dL (Normal) Thyroid Stimulating Hormone (TSH) 0.56 uIU/mL (0.55-4.78) Free Thyroxine (T4) Calculated 1.01 ng/dL (0.89-1.76) Other Laboratory Tests 06/18/25 14:18 Brief Hx & Hospital Course: This is a 72 years old female with past medical history of congestive heart failure, hypertension, [place], nephrolithiasis with kidney removal, CVA with residual weakness, morbid obesity, who is a resident of long-term [facility] facility [facility] came to emergency department because of chest pain. The patient apparently had elevation of blood pressure in [facility] and complain of chest discomfort. The patient was admitted. Troponin level was negative. Clerical Methods Analyst's recommend no further intervention. The patient received Lasix. The patient feel better and supposed to be discharged due [facility] and resume hospice. However for couple day the patient did not have a right mode of transportation and the hospice was not available during holiday so finally today the patient gurney transportation was set up also hospice was resumed. The patient will be discharged back to [facility] today. Follow up with primary care physician 1-2 weeks. Activity as tolerated. Diet per home diet. Recommend low-salt low-cholesterol diet. Physical exam: HEENT: Normocephalic atraumatic pupils equal react to light and accommodation. Extraocular muscles intact, conjunctiva pink, oropharynx moist, no thrush, no exudate. Lymphatic: No lymphadenopathy Cardiovascular exam: S1, S2 was heard. No murmurs, rubs, gallops Lung: Clear on auscultation bilaterally, no wheeze, rale, rhonchi. GI: Abdominal soft, nondistended, nontenderness, positive bowel sounds. Extremity: No crepitus, cyanosis, edema. Pedal pulses present bilateral. Full range of motion. Skin: Normal turgor, no rash. Psych: Alert, oriented x3. Neurology: No focal deficits, cranial nerve II to XII grossly intact. This medical document was created using an electronic medical record system with [employer] computerized dictation system. Although this document has been carefully reviewed, there may still be some phonetic and typographical errors. These areas are purely typographical due to imperfections of the software programs, and do not reflect any compromise in the patient's medical care. Condition at Discharge: Stable Final Diagnosis/Problems List Chest pain rule out ACS Hypertensive emergency Acute hypoxic respiratory failure requiring supplementary oxygen Pulmonary edema Morbid obesity History of CHF History of hypertension History of [place] History of hysterectomy History of nephrolithiasis with removal Resident of long-term SNF Discharge Disposition: Home Discharge Instruct/Medications Diet: Cardiac 2g Na,low cholest Activity: No Restrictions, As Tolerated Follow Up/Referral: pcp 1-2 weeks Clerical Methods Analyst per schedule Medications: lasix 40mg daily Resume home med Scheduled Apixaban Base (Eliquis), 2.5 MG PO BID, (Reported) Ascorbic Acid (Vitamin C Tablet), 500 MG PO DAILY, (Reported) Aspirin (Aspirin Low Dose), 81 MG PO DAILY, (Reported) Clonidine Hydrochloride (Clonidine Hcl), 1 TAB PO QPM, (Reported) Diphenhydramine Hcl (Banophen), 50 MG PO DAILY, (Reported) Ferrous Sulfate (Ferosul), 325 MG PO DAILY, (Reported) Folic Acid (Folic Acid), 1 MG PO DAILY, (Reported) Furosemide (Lasix), 40 MG PO DAILY Losartan Potassium (Losartan Potassium), 1 TAB PO DAILY, (Reported) Multiple Vitamins W/ Minerals (Strovite One), 1 TAB PO DAILY, (Reported) Pantoprazole Sodium Sesquihydr (Protonix), 40 MG PO DAILY, (Reported) Scheduled PRN Acetaminophen (Apap), 2 TAB PO Q6HPRN PRN for TEMP GREATER THAN 100, (Reported) Docusate Sodium (Colace), 100 MG PO [id number] PRN for FOR CONSTIPATION, (Reported) Ipratropium-Albuterol (Ipratropium [place]/Albut), 1 NEIL IN Q2HP PRN for SHORTNESS OF BREATH, (Reported) Midodrine HCl (Midodrine Hydrochloride), 5 MG PO Q6HPRN PRN for HYPOTENSION, (Reported) Discharge Statement: "Patient was advised to return to the ER or call 911 if any headaches, dizziness, shortness of breath, chest pain, abdominal pain, bleeding, fevers, or worsening of medical condition. Patient was counseled about treatment plan, medications, possible side effects, patientverbalized understanding. All questions were answered to the best of my ability. This discharge took greater then 30 minutes in planning, reviewing documentation, counseling the patient, and discussing with other team members." ASSESSMENT ASSESSMENT Assessment chf exacerbation Date of Service: Jun 22, 2025 Billing Provider: LETICIA PAULA MD Common Visit Codes: [id number] DISCH DAY >30min LETICIA PAULA MD Jun 22, 2025 22:48
--- NOTE | 2025-06-23 11:50 | ECG ---
[facility] Test Date: 2025-06-21 Test Time: 16:28:24 Pat Name: KAIN POLLOCK Department: Respiratoy Room: 0206T A Gender: F Swimmer: Filipe JACOME : 1945 Requested By: JI PAUL Order Number: [id number] Reading MD: Estuardo Read Measurements Intervals [place] Rate: 101 P: 41 NH: 142 QRS: -63 QRSD: 163 T: 17 QT: 381 QTc: 494 Interpretive Statements Sinus tachycardia Ventricular premature complex Probable left atrial enlargement Right bundle branch block Left ventricular hypertrophy Anterolateral infarct, acute (LAD) Electronically Signed On 06-24-2025 14:31:18 PDT by Estuardo Read Please click the below link to view image of tracing.
== END 2025-06-22 23:50 | disposition hospice, inpatient (51) | DRG 304 ==
LOC: EDBD 08:52 → ER 08:52 → OVERFLOW 16:04 → TELE-CENTR 23:44
PROVIDERS: ADMIT Internal Medicine; ATTEND Internal Medicine
PROC: 05HD33Z Insertion of Infusion Device into Right Cephalic Vein, Percutaneous Approach (ICD-10-PCS; principal; 2025-06-17)
PROC: B54MZZA Ultrasonography of Right Upper Extremity Veins, Guidance (ICD-10-PCS; 2025-06-17)
DX: I16.1 Hypertensive emergency (principal); J96.01 Acute respiratory failure with hypoxia; I24.9 Acute ischemic heart disease, unspecified; Z68.43 Body mass index [BMI] 50.0-59.9, adult; I50.9 Heart failure, unspecified; I11.0 Hypertensive heart disease with heart failure; E66.01 Morbid (severe) obesity due to excess calories; Z51.5 Encounter for palliative care; I45.10 Unspecified right bundle-branch block; I49.3 Ventricular premature depolarization; Z88.5 Allergy status to narcotic agent; Z79.82 Long term (current) use of aspirin; Z79.01 Long term (current) use of anticoagulants; Z79.899 Other long term (current) drug therapy; Z90.710 Acquired absence of both cervix and uterus; Z87.442 Personal history of urinary calculi; I25.2 Old myocardial infarction; Z86.73 Personal history of transient ischemic attack (TIA), and cerebral infarction without residual deficits
CPT/HCPCS: 36415; 36600; 71045; 80048; 80061; 81001; 82805; 83735; 84439; 84443; 84484; 85025; 87081; 93005; 96372; 99291; G0378